=== PATIENT | female | born 1955 | race Caucasian/White ===

== ENCOUNTER 2019-01-03 16:27 | Inpatient (IN) | payer OTHER ==
[~2019-01-03] VITALS: Ht 175.3 cm; Wt 75.1 kg
[~2019-01-03 16:27] MED LIST: ASPI-612 PO; ATOR40TA59 PO; CLOP75TA PO; ERTA1VIA IJ; INSU100I17 SQ; INSU100I27 SQ; LACT1CAP19 PO; LEVO112T4 PO; LISI-338 PO; METF850T8 PO; OXYC1TAB15 PO; PANT40TA5 PO
[2019-01-03 21:35] VITALS: BP 141/66
--- NOTE | 2019-01-03 21:44 | NUR ---
The patient, CHAVO GAYLE, 63 y/o, F admitted by TAYLOR COLON MD. pt. arrived on unit via wheelchair at 2134 with at bedside. Pt. doesn't complain of pain, VSS. Pt. was given written information regarding hospital policies, unit procedures and contact persons. call light within reach, pt. at bedside, no clutter on floor. Will continue to monitor.
[2019-01-03] MEDS ORDERED: HYDROcodone/APAP 5/325MG 1 TAB TABLET PO PRN (22:00)
[2019-01-03] MEDS ORDERED: MORPHINE SULFATE 2 MG/ML VIAL. IV PRN (22:00)
[2019-01-03] MEDS ORDERED: VANCOMYCIN 1.25 GM in IV NORMAL SALINE 250ML 250 ML IV ONE (22:00)
[2019-01-03] MEDS ORDERED: ONDANSETRON PF 4 MG/2 ML VIAL. IV PRN (22:00)
[2019-01-03] MEDS ORDERED: ACETAMINOPHEN 325 MG TABLET. PO PRN (22:00)
[2019-01-03] MEDS ORDERED: LACTULOSE 20 GM/30 ML SOLUTION. PO PRN (22:00)
[2019-01-03 23:00] VITALS: BP 135/68
[2019-01-03] MEDS ORDERED: cefTRIAXone IV Push 1 GM VIAL. IVP SCH (23:00)
[2019-01-03] MEDS ORDERED: VANCOMYCIN 1.75 GM in IV NORMAL SALINE 500ML BAG 500 ML IV ONE (23:00)
[2019-01-03] MEDS: HEPARIN for SUB-Q USE 5,000 UNIT/ML VIAL. SQ SCH (23:13)
[2019-01-04] VITALS (12 sets, daily range): BP systolic 118–164; BP diastolic 61–79
[2019-01-04] MEDS ORDERED: METF10007 PO (02:05)
[2019-01-04] MEDS ORDERED: CANA300T PO (02:05)
[2019-01-04] MEDS ORDERED: LOSA-73 PO (02:05)
[2019-01-04 03:23] LABS: BASO % 1 % (0-3); EOS # 0.3 x10^3/uL (0.0-0.7); EOS % 6 % (0-3); HEMATOCRIT 38.2 % (36.0-47.0); HEMOGLOBIN 12.2 g/dL (12.0-15.5); LYMPH # 1.8 x10^3/uL (1.0-4.8); LYMPH % 34 % (24-48); MEAN CORPUSCULAR HEMOGLOBIN 28 pg (25-35); MEAN CORPUSCULAR HGB CONC 32 g/dL (31-37); MEAN CORPUSCULAR VOLUME 89 fL (79-100); MONO # 0.5 x10^3/uL (0.0-1.1); MONO % 9 % (0-9); NEUT # 2.7 x10^3uL (1.8-7.7); NEUT % 50 % (31-73); PLATELET COUNT 153 x10^3/uL (140-400); RED BLOOD COUNT 4.31 x10^6/uL (3.50-5.40); RED CELL DISTRIBUTION WIDTH 14.7 % (11.5-14.5); WHITE BLOOD COUNT 5.4 x10^3/uL (4.0-11.0)
[2019-01-04 03:36] LABS: CALCIUM 9.1 mg/dL (8.5-10.1); CREATININE 0.8 mg/dL (0.6-1.0); GFR 72.4; POTASSIUM 4.1 mmol/L (3.5-5.1)
[2019-01-04] MEDS: VANCOMYCIN PER PHARMACY MC PRN ×4 (03:57→15:32)
--- NOTE | 2019-01-04 03:57 | NUR ---
Pharmacy Vancomycin Dosing Note S:Consulted to monitor and dose vancomycin started 01/03/19. O:CHAVO GAYLE is a 63 year old F with . Height: 5 feet, 9 inches Weight: 73.644417 kg Urich Body Weight: 66.20 Adjusted Body Weight: 69.32 Dosing Weight: Actual Other Antibiotics: LABS: Last BUN: 16 Last Creatinine: 0.8 Creatinine Clearance: 79 mL/min Last WBC: 5.4 Last Procalcitonin: Tmax (past 24 hours): Microbiology: I/O: Drug Levels: Last level: on at Last dose given 01/03/19 at 2300 Vancomycin Dosing: Loading Dose: 1750 mg x1 Dosing Weight: Actual Target Trough: 10-20 A: Based on: WT AND CRCL P: 1. Begin Vancomycin 1000 mg IV q12h 2. Follow up Trough level on 01/05/19 at 1030 3. Pharmacy will continue to monitor, follow and adjust therapy as needed. WOLF MORRELL RPH, 01/04/19 0358 Signed: 01/04/19 at 035 by WOLF MORRELL RPH PHA
[2019-01-04] MEDS: HEPARIN for SUB-Q USE 5,000 UNIT/ML VIAL. SQ SCH ×3 (06:00→21:51)
--- NOTE | 2019-01-04 07:11 | NUR ---
Dr. William and Dr. Mcginnis consulted this morning.
--- NOTE | 2019-01-04 07:16 | NUR ---
Holding 0600 heparin in case pt. needs to go for procedure. JESSICA Lloyd notified.
[2019-01-04] MEDS: SENNOSIDES/DOCUSATE 8.6/50MG TABLET. PO SCH ×2 (07:35→21:50)
--- NOTE | 2019-01-04 09:27 | PDOC1 ---
History and Physical Date of Admission Date of Admission DATE: 01/04/19 TIME: 09:23 Identification/Chief Complaint Chief Complaint Right BKA Stump dehiscence Source Source: Caregiver, Chart review, Patient History of Present Illness History of Present Illness 62-year-old female, with a past medical history of diabetes, hypertension and hyperlipidemia, who about a year ago sprained her ankle and returned to the hospital at the start of the year and ultimately due to poor circulation underwent a right BKA in early November and has been recovering at home with home health when her home health nurse called vascular surgeon yesterday afternoon about wound dehiscence. She denies any fever or chills, but does note she had had her leg wrapped for the past week awaiting further approval for more home health and when her nurse arrived a large amount of serosanguineous drainage was revealed. She does note some redness, but denies any fever/chills. She does have some nausea. Right stump dehiscence s/p R BKA 11/08/18 - s/p rocephin and Vanc last night when I was called for her arrival PAD s/p right superficial femoral artery/popliteal artery atherectomy and angioplasty on 10/29/2018 She was called for direct admission for likely return to OR. Past Medical History Cardiovascular: HTN, Hyperlipidemia Pulmonary: No pertinent hx GI: No pertinent hx Endocrine: Diabetes, Hypothyroidism Past Surgical History Past Surgical History: Other (Right BKA) Family History Family History: Diabetes, Hypertension Social History Smoke: No ALCOHOL: none Drugs: None Current Medications Current Medications Current Medications Ondansetron HCl (Zofran) 4 mg PRN Q6HRS PRN IV NAUSEA/VOMITING 1ST CHOICE; Start 01/03/19 at 22:00 Morphine Sulfate (Morphine Sulfate) 2 mg PRN Q4HRS PRN IV SEVERE PAIN; Start at 22:00 Acetaminophen/ Hydrocodone Bitart (Lortab 5/325) 1 tab PRN Q6HRS PRN PO MILD PAIN; Start 01/03/19 at 22:00 Acetaminophen (Tylenol) 650 mg PRN Q6HRS PRN PO Headaches, Temp > 101.5F; Start 01/03/19 at 22:00 Senna/Docusate Sodium (Senna Plus) 1 tab BID PO ; Start 01/04/19 at 09:00 Lactulose (Lactulose) 20 gm PRN Q12HR PRN PO CONSTIPATION 1ST CHOICE; Start 01/03/19 at 22:00 Heparin Sodium (Porcine) (Heparin Sodium) 5,000 unit Q8HRS SQ Last administered on 01/03/19at 23:13; Start 01/03/19 at 22:00 Vancomycin HCl 1.25 gm/Sodium Chloride 250 ml @ 166.667 mls/hr 1X ONCE IV ; Start 01/03/19 at 22:00; Stop 01/03/19 at 23:29; Status UNV Ceftriaxone Sodium (Rocephin) 1 gm Q24H IVP Last administered on 01/03/19at 23:12 ; Start 01/03/19 at 23:00 Vancomycin HCl (Vanco Per Pharmacy) 1 each PRN DAILY PRN MC SEE COMMENTS Last administered on 01/04/19at 05:49; Start 01/03/19 at 22:45 Vancomycin HCl 1.75 gm/Sodium Chloride 500 ml @ 250 mls/hr 1X ONCE IV Last administered on 01/03/19at 23:11; Start 01/03/19 at 23:00; Stop 01/04/19 at 00:59; Status DC Vancomycin HCl 1 gm/Sodium Chloride 250 ml @ 250 mls/hr Q12H IV ; Start at 11:00 Vancomycin HCl (Vancomycin Trough Level) 1 each 1X ONCE MC ; Start 01/05/19 at 10:30; Stop 01/05/19 at 10:31 Active Scripts Active Aspirin Ec (Aspirin) 81 Mg Tablet.dr 81 Mg PO DAILYWBKFT 30 Days Atorvastatin Calcium 40 Mg Tablet 20 Mg PO QHS Levothyroxine Sodium 112 Mcg Tablet 112 Mcg PO DAILY07 Reported Metformin Hcl 1,000 Mg Tablet 1,000 Mg PO BID Invokana (Canagliflozin) 300 Mg Tablet 300 Mg PO DAILY Losartan Potassium 50 Mg Tablet 25 Mg PO DAILY Allergies Allergies: Coded Allergies: No Known Drug Allergies (Unverified , 04/05/16) ROS General: YES: Fatigue, Malaise; No: Chills, Night Sweats, Appetite, Other PSYCHOLOGICAL ROS: No: Anxiety, Behavioral Disorder, Concentration difficultie , Decreased libido, Depression, Disorientation, Hallucinations, Hostility, Irritablity, Memory difficulties, Mood Swings, Obsessive thoughts, Physical abuse, Sexual abuse, Sleep disturbances, Suicidal ideation, Other Eyes: No Blurry vision, No Decreased vision, No Double vision, No Dry eyes, No Excessive tearing, No Eye Pain, No Itchy Eyes, No Loss of vision, No Photophobia , No Scotomata, No Uses contacts, No Uses glasses, No Other HEENT: No: Heacaches, Visual Changes, Hearing change, Nasal congestion, Nasal discharge, Oral lesions, Sinus pain, Sore Throat, Epistaxis, Sneezing, Snoring, Tinnitus, Vertigo, Vocal changes, Other ALLERGY AND IMMUNOLOGY: No: Hives, Insect Bite Sensitivity, Itchy/Watery Eyes, Nasal Congestion, Post Nasal Drip, Seasonal Allergies, Other Hematological and Lymphatic: No: Bleeding Problems, Blood Clots, Blood Transfusions, Brusing, Night Sweats, Pallor, Swollen Lymph Nodes, Other ENDOCRINE: No: Breast Changes, Galactorrhea, Hair Pattern Changes, Hot Flashes , Malaise/lethargy, Mood Swings, Palpitations, Polydipsia/polyuria, Skin Changes , Temperature Intolerance, Unexpected Weight Changes, Other Breast: No New/Changing Breast Lumps, No Nipple changes, No Nipple discharge, No Other Respiratory: No: Cough, Hemoptysis, Orthopnea, Pleuritic Pain, Shortness of breath, SOB with excertion, Sputum Changes, Stridor, Tachypnea, Wheezing, Other Cardiovascular: No Chest Pain, No Palpitations, No Orthopnea, No Paroxysmal Noc. Dyspnea, No Edema, No Lt Headedness, No Other Gastrointestinal: Yes Nausea; No Vomiting, No Abdominal Pain, No Diarrhea, No Constipation, No Melena, No Hematochezia, No Other Genitourinary: No Dysuria, No Frequency, No Incontinence, No Hematuria, No Retention, No Discharge, No Urgency, No Pain, No Flank Pain, No Other, No , No , No , No , No , No , No Musculoskeletal: Yes Gait Disturbance, Yes Joint Pain; No Joint Stiffness, No Joint Swelling, No Muscle Pain, No Muscular Weakness, No Pain In:, No Swelling In:, No Other Neurological: No Behavorial Changes, No Bowel/Bladder ControlChng, No Confusion , No Dizziness, No Gait Disturbance, No Headaches, No Impaired Coord/balance, No Memory Loss, No Numbness/Tingling, No Seizures, No Speech Problems, No Tremors, No Visual Changes, No Weakness, No Other Skin: Yes Rash; No Dry Skin, No Eczema, No Hair Changes, No Lumps, No Mole Changes, No Mottling, No Nail Changes, No Pruritus, No Skin Lesion Changes, No Other, No Acne Physical Exam General: Alert, Oriented X3, Cooperative, No acute distress HEENT: Atraumatic, PERRLA, EOMI, Mucous membr. moist/pink Lungs: Clear to auscultation, Normal air movement Heart: S1S2, RRR Abdomen: Normal bowel sounds, Soft, No tenderness, No hepatosplenomegaly, No masses Rectal Exam: not examined Extremities: No clubbing, No cyanosis, Normal pulses, Other (Right stump with some swelling, redness) Skin: Other (Open wound on right stump, left ac with some abrasions) Neuro: Normal speech, Strength at 5/5 X4 ext, Normal tone, Cranial nerves 3-12 NL, Reflexes 2+, Other (Decreased sensation) Psych/Mental Status: Mental status NL, Mood NL Vitals Vitals Vital Signs Date Time Temp Pulse Resp B/P (MAP) Pulse Ox O2 Delivery O2 Flow Rate FiO2 01/04/19 08:00 Room Air 01/04/19 07:00 98.5 87 18 141/69 (93) 97 98.5 Labs Labs Laboratory Tests Test 01/03/19 23:58 01/04/19 02:50 Glucose (Fingerstick) 137 mg/dL (70-99) White Blood Count 5.4 x10^3/uL (4.0-11.0) Red Blood Count 4.31 x10^6/uL (3.50-5.40) Hemoglobin 12.2 g/dL (12.0-15.5) Hematocrit 38.2 % (36.0-47.0) Mean Corpuscular Volume 89 fL (79-100) Mean Corpuscular Hemoglobin 28 pg (25-35) Mean Corpuscular Hemoglobin Concent 32 g/dL (31-37) Red Cell Distribution Width 14.7 % (11.5-14.5) Platelet Count 153 x10^3/uL (140-400) Neutrophils (%) (Auto) 50 % (31-73) Lymphocytes (%) (Auto) 34 % (24-48) Monocytes (%) (Auto) 9 % (0-9) Eosinophils (%) (Auto) 6 % (0-3) Basophils (%) (Auto) 1 % (0-3) Neutrophils # (Auto) 2.7 x10^3uL (1.8-7.7) Lymphocytes # (Auto) 1.8 x10^3/uL (1.0-4.8) Monocytes # (Auto) 0.5 x10^3/uL (0.0-1.1) Eosinophils # (Auto) 0.3 x10^3/uL (0.0-0.7) Basophils # (Auto) 0.0 x10^3/uL (0.0-0.2) Sodium Level 144 mmol/L (136-145) Potassium Level 4.1 mmol/L (3.5-5.1) Chloride Level 108 mmol/L (98-107) Carbon Dioxide Level 26 mmol/L (21-32) Anion Gap 10 (6-14) Blood Urea Nitrogen 16 mg/dL (7-20) Creatinine 0.8 mg/dL (0.6-1.0) Estimated GFR (Cockcroft-Gault) 72.4 Glucose Level 156 mg/dL (70-99) Calcium Level 9.1 mg/dL (8.5-10.1) Laboratory Tests Test 01/03/19 23:58 01/04/19 02:50 Glucose (Fingerstick) 137 mg/dL (70-99) White Blood Count 5.4 x10^3/uL (4.0-11.0) Red Blood Count 4.31 x10^6/uL (3.50-5.40) Hemoglobin 12.2 g/dL (12.0-15.5) Hematocrit 38.2 % (36.0-47.0) Mean Corpuscular Volume 89 fL (79-100) Mean Corpuscular Hemoglobin 28 pg (25-35) Mean Corpuscular Hemoglobin Concent 32 g/dL (31-37) Red Cell Distribution Width 14.7 % (11.5-14.5) Platelet Count 153 x10^3/uL (140-400) Neutrophils (%) (Auto) 50 % (31-73) Lymphocytes (%) (Auto) 34 % (24-48) Monocytes (%) (Auto) 9 % (0-9) Eosinophils (%) (Auto) 6 % (0-3) Basophils (%) (Auto) 1 % (0-3) Neutrophils # (Auto) 2.7 x10^3uL (1.8-7.7) Lymphocytes # (Auto) 1.8 x10^3/uL (1.0-4.8) Monocytes # (Auto) 0.5 x10^3/uL (0.0-1.1) Eosinophils # (Auto) 0.3 x10^3/uL (0.0-0.7) Basophils # (Auto) 0.0 x10^3/uL (0.0-0.2) Sodium Level 144 mmol/L (136-145) Potassium Level 4.1 mmol/L (3.5-5.1) Chloride Level 108 mmol/L (98-107) Carbon Dioxide Level 26 mmol/L (21-32) Anion Gap 10 (6-14) Blood Urea Nitrogen 16 mg/dL (7-20) Creatinine 0.8 mg/dL (0.6-1.0) Estimated GFR (Cockcroft-Gault) 72.4 Glucose Level 156 mg/dL (70-99) Calcium Level 9.1 mg/dL (8.5-10.1) VTE Prophylaxis Ordered VTE Prophylaxis Devices: Yes VTE Pharmacological Prophylaxi: Yes Assessment/Plan Assessment/Plan A/P: Right stump dehiscence s/p R BKA 11/08/18 - s/p rocephin and Vanc last night when I was called for her arrival, changed rocephin to merrem for h/o bacteremia. Consulted ID for assistance and Vascular surgery, likely to OR today. Culture wound Diabetes - medium sliding scale, hold metformin for possible surgery Hypertension - cont home meds Hyperlipidemia - cont home meds PAD s/p right superficial femoral artery/popliteal artery atherectomy and angioplasty on 10/29/2018 - Hold ASA for surgery FEN - NPO, ADA diet post-op PPX - heparin last night, hold for OR FULL CODE Inpatient for right stump dehiscence, likely inpatient for 2 midnights TAYLOR COLON MD Jan 04, 2019 09:27
--- NOTE | 2019-01-04 09:59 | PDOC ---
Provider Note Provider Note S: pt admitted yesterday with right BKA stump dehiscence and drainage. She reports she had it dressed for 5 days without dressing changes so she was unaware of it's status. When the home health RN came for dressing change she told her to come to the hospital. She denies significant pain or fevers. Pt seen with Dr. Diallo O: VSS, afebrile Awake, alert, in no apparent distress Respirations nonlabored Right BKA stump with lateral opening about 4cm width, approx 3cm depth, without significant drainage at this site. There is evidence of sloughed tissue vs white infectious debris. Does not appear to track significantly along incision line, however there is a small area of incisional opening mid-anterior incision where small amount of bloody drainage is evident. No odor noted. Minimal surrounding erythema to lateral dehiscence. A/P: Incisional dehiscence of right BKA stump - Pt will need to go to the OR for debridement and wound vac placement. We discussed the risks/benefits, details of procedure and post op care including wound vac therapy with the patient who exhibited understanding and agreed to proceed. We will attempt to arrange this to take place this afternoon. Discussed with ID, pt will need to be on antibiotics per Dr. Mcginnis. Discussed with RN. ANA WOO Jan 04, 2019 09:59
[2019-01-04] MEDS ORDERED: IV RINGERS,LACTATED 1000ML 1,000 ML IV SCH ×2 (10:13)
[2019-01-04] MEDS ORDERED: LIDOCAINE 1% PF 2 ML VIAL. ID PRN ×2 (10:15)
[2019-01-04] MEDS ORDERED: HYDROmorphone 2 MG/ML VIAL IV PRN ×2 (10:15)
[2019-01-04] MEDS ORDERED: PROCHLORPERAZINE 10 MG/2 ML VIAL. IV PRN ×2 (10:15)
[2019-01-04] MEDS ORDERED: ONDANSETRON PF 4 MG/2 ML VIAL. IV PRN ×2 (10:15)
[2019-01-04] MEDS ORDERED: MORPHINE SULFATE 2 MG/ML VIAL. IV PRN ×2 (10:15)
[2019-01-04] MEDS ORDERED: fentaNYL PF VIAL 100 MCG/2 ML VIAL IV PRN ×3 (10:15)
--- NOTE | 2019-01-04 10:19 | PDOC ---
Infectious Disease Note Vital Sign Vital Signs Vital Signs Date Time Temp Pulse Resp B/P (MAP) Pulse Ox O2 Delivery O2 Flow Rate FiO2 01/04/19 08:00 Room Air 01/04/19 07:00 98.5 87 18 141/69 (93) 97 98.5 Labs Lab Laboratory Tests Test 01/03/19 23:58 01/04/19 02:50 Glucose (Fingerstick) 137 mg/dL (70-99) White Blood Count 5.4 x10^3/uL (4.0-11.0) Red Blood Count 4.31 x10^6/uL (3.50-5.40) Hemoglobin 12.2 g/dL (12.0-15.5) Hematocrit 38.2 % (36.0-47.0) Mean Corpuscular Volume 89 fL (79-100) Mean Corpuscular Hemoglobin 28 pg (25-35) Mean Corpuscular Hemoglobin Concent 32 g/dL (31-37) Red Cell Distribution Width 14.7 % (11.5-14.5) Platelet Count 153 x10^3/uL (140-400) Neutrophils (%) (Auto) 50 % (31-73) Lymphocytes (%) (Auto) 34 % (24-48) Monocytes (%) (Auto) 9 % (0-9) Eosinophils (%) (Auto) 6 % (0-3) Basophils (%) (Auto) 1 % (0-3) Neutrophils # (Auto) 2.7 x10^3uL (1.8-7.7) Lymphocytes # (Auto) 1.8 x10^3/uL (1.0-4.8) Monocytes # (Auto) 0.5 x10^3/uL (0.0-1.1) Eosinophils # (Auto) 0.3 x10^3/uL (0.0-0.7) Basophils # (Auto) 0.0 x10^3/uL (0.0-0.2) Sodium Level 144 mmol/L (136-145) Potassium Level 4.1 mmol/L (3.5-5.1) Chloride Level 108 mmol/L (98-107) Carbon Dioxide Level 26 mmol/L (21-32) Anion Gap 10 (6-14) Blood Urea Nitrogen 16 mg/dL (7-20) Creatinine 0.8 mg/dL (0.6-1.0) Estimated GFR (Cockcroft-Gault) 72.4 Glucose Level 156 mg/dL (70-99) Calcium Level 9.1 mg/dL (8.5-10.1) Objective Assessment Right stump dehiscence s/p R BKA 11/08/18 - s/p rocephin times one in ER on Vanc PAD s/p right superficial femoral artery/popliteal artery atherectomy and angioplasty on 10/29/2018 H/o Streptococcus oralis bacteremia POA Oct 22 2018 H/o Klebsiella oxytoca and Enterococcus faecalis, PCN sensitive. Diabetes II Tobaccoism HTN HLD Plan Plan of Care Cont Vanc Add Meropenem D/c Further Rocephin Cult wound F/u labs Await surgery today D/w nursing/ Dr. Hernandez and Margarette Raygoza PA Thank you # [phone] WILLIE MANN MD Jan 04, 2019 10:19
[2019-01-04] MEDS ORDERED: VANCOMYCIN 1 GM in IV NORMAL SALINE 250ML 250 ML IV SCH (11:00)
[2019-01-04] MEDS: MEROPENEM 500 MG in IV NORMAL SALINE 50ML 50 ML IV SCH ×2 (11:58→17:48)
[2019-01-04] MEDS: INSULIN LISPRO 300 UNITS/3 ML INSULN.PEN. SQ SCH ×2 (12:00→16:38)
[2019-01-04] MEDS ORDERED: DEXTROSE 50% 25 GM / 50ML DISP.SYRIN. IV PRN (12:00)
--- NOTE | 2019-01-04 12:24 | NUR ---
SW following for discharge planning. Discussed with RN, pt is from home with . Pt having a procedure today and abx. RN advised no SW needs at this time. SW will continue to follow.
--- NOTE | 2019-01-04 16:03 | PDOC ---
PROGRESS NOTES Subjective Subjective Patient was seen in preop prior to I and D of the BKA stump I discussed the procedure with her and her . They express understanding and wishes to proceed Objective Objective Vital Signs Date Time Temp Pulse Resp B/P (MAP) Pulse Ox O2 Delivery O2 Flow Rate FiO2 01/04/19 15:00 97.9 81 18 134/73 (93) 96 Room Air 97.9 Intake and Output 01/04/19 06:59 # Voids 1 Physical Exam Physical Exam I reviewed the findings in the chart and the previous H&Pthere are no changes Assessment Assessment Dehiscence of the right BKA at the lateral edge with some necrosis of the underlying fat tissue. Plan Plan of Care Plan I&D and likely VAC placement in the OR this evening I discussed the plan with the patient and her expressed understanding and wished to proceed. The right leg was marked and the consent was signed Comment Review of Relevant I have reviewed the following items nikole (where applicable) has been applied. Labs Laboratory Tests Test 01/03/19 23:58 01/04/19 02:50 01/04/19 12:07 Glucose (Fingerstick) 137 mg/dL (70-99) 159 mg/dL (70-99) White Blood Count 5.4 x10^3/uL (4.0-11.0) Red Blood Count 4.31 x10^6/uL (3.50-5.40) Hemoglobin 12.2 g/dL (12.0-15.5) Hematocrit 38.2 % (36.0-47.0) Mean Corpuscular Volume 89 fL (79-100) Mean Corpuscular Hemoglobin 28 pg (25-35) Mean Corpuscular Hemoglobin Concent 32 g/dL (31-37) Red Cell Distribution Width 14.7 % (11.5-14.5) Platelet Count 153 x10^3/uL (140-400) Neutrophils (%) (Auto) 50 % (31-73) Lymphocytes (%) (Auto) 34 % (24-48) Monocytes (%) (Auto) 9 % (0-9) Eosinophils (%) (Auto) 6 % (0-3) Basophils (%) (Auto) 1 % (0-3) Neutrophils # (Auto) 2.7 x10^3uL (1.8-7.7) Lymphocytes # (Auto) 1.8 x10^3/uL (1.0-4.8) Monocytes # (Auto) 0.5 x10^3/uL (0.0-1.1) Eosinophils # (Auto) 0.3 x10^3/uL (0.0-0.7) Basophils # (Auto) 0.0 x10^3/uL (0.0-0.2) Sodium Level 144 mmol/L (136-145) Potassium Level 4.1 mmol/L (3.5-5.1) Chloride Level 108 mmol/L (98-107) Carbon Dioxide Level 26 mmol/L (21-32) Anion Gap 10 (6-14) Blood Urea Nitrogen 16 mg/dL (7-20) Creatinine 0.8 mg/dL (0.6-1.0) Estimated GFR (Cockcroft-Gault) 72.4 Glucose Level 156 mg/dL (70-99) Calcium Level 9.1 mg/dL (8.5-10.1) Laboratory Tests Test 01/03/19 23:58 01/04/19 02:50 01/04/19 12:07 Glucose (Fingerstick) 137 mg/dL (70-99) 159 mg/dL (70-99) White Blood Count 5.4 x10^3/uL (4.0-11.0) Red Blood Count 4.31 x10^6/uL (3.50-5.40) Hemoglobin 12.2 g/dL (12.0-15.5) Hematocrit 38.2 % (36.0-47.0) Mean Corpuscular Volume 89 fL (79-100) Mean Corpuscular Hemoglobin 28 pg (25-35) Mean Corpuscular Hemoglobin Concent 32 g/dL (31-37) Red Cell Distribution Width 14.7 % (11.5-14.5) Platelet Count 153 x10^3/uL (140-400) Neutrophils (%) (Auto) 50 % (31-73) Lymphocytes (%) (Auto) 34 % (24-48) Monocytes (%) (Auto) 9 % (0-9) Eosinophils (%) (Auto) 6 % (0-3) Basophils (%) (Auto) 1 % (0-3) Neutrophils # (Auto) 2.7 x10^3uL (1.8-7.7) Lymphocytes # (Auto) 1.8 x10^3/uL (1.0-4.8) Monocytes # (Auto) 0.5 x10^3/uL (0.0-1.1) Eosinophils # (Auto) 0.3 x10^3/uL (0.0-0.7) Basophils # (Auto) 0.0 x10^3/uL (0.0-0.2) Sodium Level 144 mmol/L (136-145) Potassium Level 4.1 mmol/L (3.5-5.1) Chloride Level 108 mmol/L (98-107) Carbon Dioxide Level 26 mmol/L (21-32) Anion Gap 10 (6-14) Blood Urea Nitrogen 16 mg/dL (7-20) Creatinine 0.8 mg/dL (0.6-1.0) Estimated GFR (Cockcroft-Gault) 72.4 Glucose Level 156 mg/dL (70-99) Calcium Level 9.1 mg/dL (8.5-10.1) Microbiology Medications Current Medications Ondansetron HCl (Zofran) 4 mg PRN Q6HRS PRN IV NAUSEA/VOMITING 1ST CHOICE; Start 01/03/19 at 22:00 Morphine Sulfate (Morphine Sulfate) 2 mg PRN Q4HRS PRN IV SEVERE PAIN; Start at 22:00 Acetaminophen/ Hydrocodone Bitart (Lortab 5/325) 1 tab PRN Q6HRS PRN PO MILD PAIN; Start 01/03/19 at 22:00 Acetaminophen (Tylenol) 650 mg PRN Q6HRS PRN PO Headaches, Temp > 101.5F; Start 01/03/19 at 22:00 Senna/Docusate Sodium (Senna Plus) 1 tab BID PO ; Start 01/04/19 at 09:00 Lactulose (Lactulose) 20 gm PRN Q12HR PRN PO CONSTIPATION 1ST CHOICE; Start 01/03/19 at 22:00 Heparin Sodium (Porcine) (Heparin Sodium) 5,000 unit Q8HRS SQ Last administered on 01/03/19at 23:13; Start 01/03/19 at 22:00 Vancomycin HCl 1.25 gm/Sodium Chloride 250 ml @ 166.667 mls/hr 1X ONCE IV ; Start 01/03/19 at 22:00; Stop 01/03/19 at 23:29; Status UNV Ceftriaxone Sodium (Rocephin) 1 gm Q24H IVP Last administered on 01/03/19at 23:12 ; Start 01/03/19 at 23:00; Stop 01/04/19 at 10:16; Status DC Vancomycin HCl (Vanco Per Pharmacy) 1 each PRN DAILY PRN MC SEE COMMENTS Last administered on 01/04/19at 15:32; Start 01/03/19 at 22:45 Vancomycin HCl 1.75 gm/Sodium Chloride 500 ml @ 250 mls/hr 1X ONCE IV Last administered on 01/03/19at 23:11; Start 01/03/19 at 23:00; Stop 01/04/19 at 00:59; Status DC Vancomycin HCl 1 gm/Sodium Chloride 250 ml @ 250 mls/hr Q12H IV Last administered on 01/04/19at 10:19; Start 01/04/19 at 11:00; Stop 01/04/19 at 15:29; Status DC Vancomycin HCl (Vancomycin Trough Level) 1 each 1X ONCE MC ; Start 01/05/19 at 20:30; Stop 01/05/19 at 20:31 Meropenem 500 mg/ Sodium Chloride 50 ml @ 100 mls/hr Q6HRS IV Last administered on 01/04/19at 11:58; Start 01/04/19 at 11:00 Ondansetron HCl (Zofran) 4 mg PRN Q6HRS PRN IV NAUSEA/VOMITING; Start 01/04/19 at 10:15; Stop 01/05/19 at 10:14; Status UNV Fentanyl Citrate (Fentanyl 2ml Vial) 25 mcg PRN Q5MIN PRN IV MILD PAIN; Start 01/04/19 at 10:15; Stop 01/05/19 at 10:14; Status UNV Fentanyl Citrate (Fentanyl 2ml Vial) 50 mcg PRN Q5MIN PRN IV MODERATE TO SEVERE PAIN; Start 01/04/19 at 10:15; Stop 01/05/19 at 10:14; Status UNV Morphine Sulfate (Morphine Sulfate) 1 mg PRN Q10MIN PRN IV SEVERE PAIN; Start 01/04/19 at 10:15; Stop 01/05/19 at 10:14; Status UNV Ringer's Solution 1,000 ml @ 30 mls/hr Q24H IV ; Start 01/04/19 at 10:13; Stop 01/04/19 at 22:12; Status UNV Lidocaine HCl (Xylocaine-Mpf 1% 2ml Vial) 2 ml PRN 1X PRN ID PRIOR TO IV START ; Start 01/04/19 at 10:15; Stop 01/04/19 at 20:00 Hydromorphone HCl (Dilaudid) 0.5 mg PRN Q10MIN PRN IV SEV PAIN, Second choice; Start 01/04/19 at 10:15; Stop 01/05/19 at 10:14; Status UNV Prochlorperazine Edisylate (Compazine) 5 mg PACU PRN PRN IV NAUSEA, MRX1; Start 01/04/19 at 10:15; Stop 01/05/19 at 10:14; Status UNV Ondansetron HCl (Zofran) 4 mg PRN Q6HRS PRN IV NAUSEA/VOMITING; Start 01/04/19 at 10:15; Stop 01/04/19 at 20:00 Fentanyl Citrate (Fentanyl 2ml Vial) 25 mcg PRN Q5MIN PRN IV MILD PAIN; Start 01/04/19 at 10:15; Stop 01/04/19 at 20:00 Fentanyl Citrate (Fentanyl 2ml Vial) 50 mcg PRN Q5MIN PRN IV MODERATE TO SEVERE PAIN; Start 01/04/19 at 10:15; Stop 01/04/19 at 20:00 Morphine Sulfate (Morphine Sulfate) 1 mg PRN Q10MIN PRN IV SEVERE PAIN; Start 01/04/19 at 10:15; Stop 01/04/19 at 20:00 Ringer's Solution 1,000 ml @ 30 mls/hr Q24H IV ; Start 01/04/19 at 10:13; Stop 01/04/19 at 22:12 Lidocaine HCl (Xylocaine-Mpf 1% 2ml Vial) 2 ml PRN 1X PRN ID PRIOR TO IV START ; Start 01/04/19 at 10:15; Stop 01/05/19 at 10:14; Status UNV Hydromorphone HCl (Dilaudid) 0.5 mg PRN Q10MIN PRN IV SEV PAIN, Second choice; Start 01/04/19 at 10:15; Stop 01/04/19 at 10:20; Status DC Prochlorperazine Edisylate (Compazine) 5 mg PACU PRN PRN IV NAUSEA, MRX1; Start 01/04/19 at 10:15; Stop 01/04/19 at 20:00 Aspirin (Ecotrin) 81 mg DAILYWBKFT PO ; Start 01/05/19 at 08:00 Atorvastatin Calcium (Lipitor) 20 mg QHS PO ; Start 01/04/19 at 21:00 Levothyroxine Sodium (Synthroid) 112 mcg DAILY06 PO ; Start 01/05/19 at 06:00 Losartan Potassium (Cozaar) 25 mg DAILY PO ; Start 01/05/19 at 09:00 Insulin Human Lispro (HumaLOG) 0-7 UNITS TIDWMEALS SQ ; Start 01/04/19 at 12:00 Dextrose (Dextrose 50%-Water Syringe) 12.5 gm PRN Q15MIN PRN IV SEE COMMENTS; Start 01/04/19 at 12:00 Vancomycin HCl 750 mg/Sodium Chloride 250 ml @ 250 mls/hr Q12H IV ; Start at 23:00 Active Scripts Active Aspirin Ec (Aspirin) 81 Mg Tablet. 81 Mg PO [id number] 30 Days Atorvastatin Calcium 40 Mg Tablet 20 Mg PO QHS Levothyroxine Sodium 112 Mcg Tablet 112 Mcg PO [id number] Reported Metformin Hcl 1,000 Mg Tablet 1,000 Mg PO BID Invokana (Canagliflozin) 300 Mg Tablet 300 Mg PO DAILY Losartan Potassium 50 Mg Tablet 25 Mg PO DAILY Vitals/I & O Vital Sign - Last 24 Hours 01/03/19 01/03/19 01/03/19 01/04/19 21:35 22:00 23:00 03:00 Temp 97.6 97.9 98.1 97.6 97.9 98.1 Pulse 81 71 90 Resp 18 18 18 B/P (MAP) 141/66 (91) 135/68 (90) 130/73 (92) Pulse Ox 97 96 97 O2 Delivery Room Air Room Air Room Air Room Air 01/04/19 01/04/19 01/04/19 01/04/19 07:00 08:00 11:07 14:50 Temp 98.5 98.2 96.9 98.5 98.2 96.9 Pulse 87 86 80 Resp 18 18 20 B/P (MAP) 141/69 (93) 142/70 (94) 183/82 Pulse Ox 97 97 97 O2 Delivery Room Air Room Air Room Air Room Air 01/04/19 15:00 Temp 97.9 97.9 Pulse 81 Resp 18 B/P (MAP) 134/73 (93) Pulse Ox 96 O2 Delivery Room Air KIRK SILVA MD Jan 04, 2019 16:03
[2019-01-04] MEDS ORDERED: LIDOCAINE 2% PF 5 ML VIAL. ONE (16:10)
[2019-01-04] MEDS ORDERED: PROPOFOL 20 ML IV ONE (16:10)
[2019-01-04] MEDS ORDERED: DEXAMETHASONE SOD PHOS 20 MG/5 ML VIAL. ONE (16:11)
[2019-01-04] MEDS ORDERED: ONDANSETRON PF 4 MG/2 ML VIAL. ONE (16:11)
--- NOTE | 2019-01-04 17:26 | PDOC4 ---
OPERATIVE NOTE Date: Date: Jan 04, 2019 Pre-Op Diagnosis: Recent right below-knee amputation Dehiscence of lateral edge of right BKA stump Post-Op Diagnosis: Same as above No evidence of infection Procedure Performed: I&D right BKA stump occluding muscle and fascia first 20 cm Placement of wound VAC 2 separate sponges first is 6 cm x 2 cm next is 6 cm x 1 cm Surgeon: Kirk Silva M.D. Anesthesia Type: Gen. Blood Loss: Minimal Specimans Obtained: None Findings: Superficial fat necrosis at the lateral border in the area of dehiscencethis was debrided down to underlying muscle and fascia in the area 6 cm x 2 cm until there was good bleeding at all skin edges. There was no evidence of infection The central portion of the posterior flap had a small pinpoint opening-- this was opened more extensively and underlying this some hematoma was removed and there was no evidence of infection Complications: None Operative Note: Patient was escorted to the operating room placed on the table. After placement of appropriate monitoring devices anesthesia was induced without difficulty. Right leg / BKA stump was prepped and draped in usual sterile fashion. Proper timeout was performed. Attention was directed to the right BKA stump with the lateral portion which had artery dehisced was examined. Some necrotic tissue was debrided with scissors and Bovie cautery cutting away the tissue. This is carried down onto the posterior muscle flap/fascia. This was taken down until there was good bleeding at all wound edges and then excellent hemostasis was ensured with cautery. The area was extensively washed out with the Pulsavac. Attention was directed to the antral portion of the posterior flap or a small pinpoint opening it also occurred. This was opened more extensively and underlying this small amount hematoma was removed. The skin edges were examined and a small amount was debrided but overall this appeared very healthy. This area was cleaned out Pulsavac as well. Good hemostasis was achieved and then 2 separate VAC sponges were placed at the 2 wounds. The central and was 6 cm x 1 cm with some tunneling. The lateral one was 6 cm by 2 cm with some tunneling. The wound VAC was then placed with excellent seal the patient was awakened in the operating room and escorted to recovery in stable condition. There were no competitions, the patient works usual throughout, at the end of the case all sponge, needle, and instrument counts were reported to me as correct 2. KIRK SILVA MD Jan 04, 2019 17:26
[2019-01-04] MEDS ORDERED: fentaNYL PF VIAL 100 MCG/2 ML VIAL ONE (17:42)
[2019-01-04] MEDS: fentaNYL PF VIAL 100 MCG/2 ML VIAL IV PRN ×2 (17:49→18:12)
[2019-01-04] MEDS: VANCOMYCIN 750 MG in IV NORMAL SALINE 250ML 250 ML IV SCH (21:50)
[2019-01-04] MEDS: ATORVASTATIN CALCIUM 20 MG TABLET PO SCH (21:51)
[2019-01-04] MEDS ORDERED: INSULIN LISPRO 300 UNITS/3 ML INSULN.PEN. SQ ONE (23:00)
[2019-01-05] MEDS: MEROPENEM 500 MG in IV NORMAL SALINE 50ML 50 ML IV SCH ×4 (00:03→18:13)
--- NOTE | 2019-01-05 00:58 | CONS ---
DATE OF CONSULTATION: 01/04/2019 ROOM: 420. REQUESTING PHYSICIAN: Dr. Hernandez. REASON FOR CONSULTATION: Wound dehiscence. HISTORY OF PRESENT ILLNESS: The patient is a pleasant 63-year-old female with history of diabetes and tobacco abuse, who was admitted back in 10/2018. She was found to have peripheral arterial disease and underwent right superficial femoral artery and popliteal artery atherectomy and angioplasty on 10/29/2018. She was found to have a right fifth metatarsal base fracture and also had an infected diabetic wound with osteomyelitis on the right MT joint. Initially, she underwent an open ray amputation, but the wound progressed throughout the foot and it was not salvageable and she underwent a right BKA on 11/08/2018. At the time of presentation, she had Strep oralis bacteremia on 10/22/2018. Wounds also grew out Klebsiella oxytoca as well as penicillin sensitive Enterococcus faecalis. Subsequently, was discharged to [facility] where she had done rehab. She had gotten a stump protector. States she was discharged home from [facility] on Thursday, approximately 10 days ago, and was seen by the nurse at that time when her wound was dressed on Thursday. She states at that time, she had been doing fairly well. Her home nurse followed up on Thursday. The dressing at that time was changed and it was found to be bloody and there was a wound in the corner of the incision, hence she has been admitted. She states at home she had been feeling well. She had no indications of anything what was going wrong. She had no fevers or chills. No headaches. No sore throat or cough. No chest pain, no nausea, vomiting or diarrhea. PAST MEDICAL HISTORY: Again, positive for hypertension, hyperlipidemia, diabetes, hypothyroidism, the above-mentioned Strep oralis bacteremia and the wound infections as mentioned above. PAST SURGICAL HISTORY: As mentioned above. REVIEW OF SYSTEMS: Otherwise negative. ALLERGIES: No known drug allergies. SOCIAL HISTORY: Previous smoker. She is , works at a [employer] center. FAMILY HISTORY: Positive for hypertension. CURRENT MEDICATIONS: She received a dose of Rocephin in the Emergency Room. She is currently on vancomycin. She is on pain medications, lactulose, and p.r.n. medications. PHYSICAL EXAMINATION: VITAL SIGNS: Afebrile, temperature 98.5, pulse 87, respirations 18, blood pressure 141/69, satting 97% on room air. CONSTITUTIONAL: She is very pleasant, cooperative, in no acute distress. HEENT: Pupils equal and reactive. Normal conjunctivae. Oral cavity, pharynx is clear. NECK: Supple, no JVD. LUNGS: Clear to auscultation bilaterally. HEART: S1, S2. ABDOMEN: Soft, nontender, nondistended, positive bowel sounds. EXTREMITIES: No clubbing, cyanosis. Her right stump is now dressed with a clean dressing. SKIN: Warm to touch without rash. NEUROLOGIC: She is nonfocal and appropriate. PSYCHIATRIC: Affect is pleasant. LABORATORY DATA: White count 5.4, hemoglobin 12.2, platelets 153, neutrophils 53, lymphs 34, glucose 156. Creatinine 0.8. There are no imaging studies. IMPRESSION: 1. Right stump dehiscence status post right below knee amputation on 11/08/2018 status post Rocephin x 1 in the ER and on vancomycin now. 2. Peripheral arterial disease, status post atherectomy and angioplasty. 3. History of Strep oralis bacteremia. 4. History of Klebsiella and Enterococcus as mentioned above. 5. Type 2 diabetes. 6. Tobacco abuse and tobaccoism. 7. Hypertension. 8. Hyperlipidemia. RECOMMENDATIONS: We will continue vancomycin. We will add meropenem to cover anaerobes. Discontinue further Rocephin. Meropenem will also have potential coverage in case the Klebsiella has become more resistant. Obtain culture of the wound. Follow up on labs. Await surgery hopefully today. This was discussed with nursing. Discussed with Dr. Hernandez. Discussed with Jenifer vascular PA. Thank you for allowing me to participate in this patient's care. Should you have any questions, please do not hesitate to contact me. WILLIE MANN MD DR: MARY/robbi JOB#: [id number] / [id number]
[2019-01-05 03:00] VITALS: BP 137/66
[2019-01-05 03:34] LABS: BASO % 0 % (0-3); EOS % 0 % (0-3); HEMATOCRIT 39.2 % (36.0-47.0); HEMOGLOBIN 12.8 g/dL (12.0-15.5); LYMPH # 0.9 x10^3/uL (1.0-4.8); LYMPH % 15 % (24-48); MEAN CORPUSCULAR HEMOGLOBIN 29 pg (25-35); MEAN CORPUSCULAR HGB CONC 33 g/dL (31-37); MEAN CORPUSCULAR VOLUME 87 fL (79-100); MONO # 0.2 x10^3/uL (0.0-1.1); MONO % 3 % (0-9); NEUT # 4.8 x10^3uL (1.8-7.7); NEUT % 82 % (31-73); PLATELET COUNT 161 x10^3/uL (140-400); RED BLOOD COUNT 4.48 x10^6/uL (3.50-5.40); RED CELL DISTRIBUTION WIDTH 14.5 % (11.5-14.5); WHITE BLOOD COUNT 5.8 x10^3/uL (4.0-11.0)
[2019-01-05 03:53] LABS: CALCIUM 8.9 mg/dL (8.5-10.1); CREATININE 0.9 mg/dL (0.6-1.0); GFR 63.2; POTASSIUM 4.7 mmol/L (3.5-5.1)
[2019-01-05] MEDS: LEVOTHYROXINE 112 MCG TABLET PO SCH (05:28)
[2019-01-05] MEDS: HEPARIN for SUB-Q USE 5,000 UNIT/ML VIAL. SQ SCH ×3 (05:32→21:52)
[2019-01-05 07:00] VITALS: BP 124/64
[2019-01-05] MEDS: ASPIRIN ENTERIC COATED 81 MG TABLET.DR. PO SCH (08:10)
[2019-01-05] MEDS: SENNOSIDES/DOCUSATE 8.6/50MG TABLET. PO SCH ×2 (08:10→21:36)
[2019-01-05] MEDS: LOSARTAN POTASSIUM 25 MG TABLET. PO SCH (08:11)
[2019-01-05] MEDS: INSULIN LISPRO 300 UNITS/3 ML INSULN.PEN. SQ SCH ×3 (08:15→17:07)
[2019-01-05] MEDS: MULTIVITAMIN with MINERAL TABLET. PO SCH (09:54)
[2019-01-05] MEDS: ASCORBIC ACID 500 MG TABLET PO SCH (09:54)
[2019-01-05] MEDS: VANCOMYCIN 750 MG in IV NORMAL SALINE 250ML 250 ML IV SCH ×2 (09:58→23:21)
[2019-01-05 11:00] VITALS: BP 126/58
--- NOTE | 2019-01-05 13:07 | PDOC ---
PROGRESS NOTES Subjective Subjective Pt doing well, no complaints, denies pain today. Good intake and output. Objective Objective Vital Signs Date Time Temp Pulse Resp B/P (MAP) Pulse Ox O2 Delivery O2 Flow Rate FiO2 01/05/19 08:11 86 124/64 01/05/19 07:26 Room Air 01/05/19 07:00 98.0 18 95 98.0 01/04/19 17:19 10 Intake and Output 01/05/19 07:00 Intake Total 2500 ml Output Total 10 ml Balance 2490 ml Intake Oral 1900 ml IV Total 600 ml Output Estimated Blood Loss 10 ml # Voids 5 Physical Exam Physical Exam VSS, afebrile Awake, alert, in no apparent distress Right BKA stump with wound vac in place with good suction. Minimal erythema noted under adhesive dressing mixed with minimal residue from surgical placement. Plan Plan of Care POD# 1 of right BKA stump debridement and wound vac placement - Pt doing well, continue vac therapy - to be changed and seen tomorrow. - Continue abx per ID - Consult SS to assist with dispo planning, will need home health and home vac. Comment Review of Relevant I have reviewed the following items nikole (where applicable) has been applied. Labs Laboratory Tests Test 01/03/19 23:58 01/04/19 02:50 01/04/19 12:07 01/04/19 17:24 Glucose (Fingerstick) 137 mg/dL (70-99) 159 mg/dL (70-99) 133 mg/dL (70-99) White Blood Count 5.4 x10^3/uL (4.0-11.0) Red Blood Count 4.31 x10^6/uL (3.50-5.40) Hemoglobin 12.2 g/dL (12.0-15.5) Hematocrit 38.2 % (36.0-47.0) Mean Corpuscular Volume 89 fL (79-100) Mean Corpuscular Hemoglobin 28 pg (25-35) Mean Corpuscular Hemoglobin Concent 32 g/dL (31-37) Red Cell Distribution Width 14.7 % (11.5-14.5) Platelet Count 153 x10^3/uL (140-400) Neutrophils (%) (Auto) 50 % (31-73) Lymphocytes (%) (Auto) 34 % (24-48) Monocytes (%) (Auto) 9 % (0-9) Eosinophils (%) (Auto) 6 % (0-3) Basophils (%) (Auto) 1 % (0-3) Neutrophils # (Auto) 2.7 x10^3uL (1.8-7.7) Lymphocytes # (Auto) 1.8 x10^3/uL (1.0-4.8) Monocytes # (Auto) 0.5 x10^3/uL (0.0-1.1) Eosinophils # (Auto) 0.3 x10^3/uL (0.0-0.7) Basophils # (Auto) 0.0 x10^3/uL (0.0-0.2) Sodium Level 144 mmol/L (136-145) Potassium Level 4.1 mmol/L (3.5-5.1) Chloride Level 108 mmol/L (98-107) Carbon Dioxide Level 26 mmol/L (21-32) Anion Gap 10 (6-14) Blood Urea Nitrogen 16 mg/dL (7-20) Creatinine 0.8 mg/dL (0.6-1.0) Estimated GFR (Cockcroft-Gault) 72.4 Glucose Level 156 mg/dL (70-99) Calcium Level 9.1 mg/dL (8.5-10.1) Test 01/04/19 21:05 01/05/19 02:40 01/05/19 07:33 01/05/19 11:06 Glucose (Fingerstick) 193 mg/dL (70-99) 181 mg/dL (70-99) 196 mg/dL (70-99) White Blood Count 5.8 x10^3/uL (4.0-11.0) Red Blood Count 4.48 x10^6/uL (3.50-5.40) Hemoglobin 12.8 g/dL (12.0-15.5) Hematocrit 39.2 % (36.0-47.0) Mean Corpuscular Volume 87 fL (79-100) Mean Corpuscular Hemoglobin 29 pg (25-35) Mean Corpuscular Hemoglobin Concent 33 g/dL (31-37) Red Cell Distribution Width 14.5 % (11.5-14.5) Platelet Count 161 x10^3/uL (140-400) Neutrophils (%) (Auto) 82 % (31-73) Lymphocytes (%) (Auto) 15 % (24-48) Monocytes (%) (Auto) 3 % (0-9) Eosinophils (%) (Auto) 0 % (0-3) Basophils (%) (Auto) 0 % (0-3) Neutrophils # (Auto) 4.8 x10^3uL (1.8-7.7) Lymphocytes # (Auto) 0.9 x10^3/uL (1.0-4.8) Monocytes # (Auto) 0.2 x10^3/uL (0.0-1.1) Eosinophils # (Auto) 0.0 x10^3/uL (0.0-0.7) Basophils # (Auto) 0.0 x10^3/uL (0.0-0.2) Sodium Level 142 mmol/L (136-145) Potassium Level 4.7 mmol/L (3.5-5.1) Chloride Level 105 mmol/L (98-107) Carbon Dioxide Level 25 mmol/L (21-32) Anion Gap 12 (6-14) Blood Urea Nitrogen 16 mg/dL (7-20) Creatinine 0.9 mg/dL (0.6-1.0) Estimated GFR (Cockcroft-Gault) 63.2 Glucose Level 204 mg/dL (70-99) Calcium Level 8.9 mg/dL (8.5-10.1) Laboratory Tests Test 01/04/19 17:24 01/04/19 21:05 01/05/19 02:40 01/05/19 07:33 Glucose (Fingerstick) 133 mg/dL (70-99) 193 mg/dL (70-99) 181 mg/dL (70-99) White Blood Count 5.8 x10^3/uL (4.0-11.0) Red Blood Count 4.48 x10^6/uL (3.50-5.40) Hemoglobin 12.8 g/dL (12.0-15.5) Hematocrit 39.2 % (36.0-47.0) Mean Corpuscular Volume 87 fL (79-100) Mean Corpuscular Hemoglobin 29 pg (25-35) Mean Corpuscular Hemoglobin Concent 33 g/dL (31-37) Red Cell Distribution Width 14.5 % (11.5-14.5) Platelet Count 161 x10^3/uL (140-400) Neutrophils (%) (Auto) 82 % (31-73) Lymphocytes (%) (Auto) 15 % (24-48) Monocytes (%) (Auto) 3 % (0-9) Eosinophils (%) (Auto) 0 % (0-3) Basophils (%) (Auto) 0 % (0-3) Neutrophils # (Auto) 4.8 x10^3uL (1.8-7.7) Lymphocytes # (Auto) 0.9 x10^3/uL (1.0-4.8) Monocytes # (Auto) 0.2 x10^3/uL (0.0-1.1) Eosinophils # (Auto) 0.0 x10^3/uL (0.0-0.7) Basophils # (Auto) 0.0 x10^3/uL (0.0-0.2) Sodium Level 142 mmol/L (136-145) Potassium Level 4.7 mmol/L (3.5-5.1) Chloride Level 105 mmol/L (98-107) Carbon Dioxide Level 25 mmol/L (21-32) Anion Gap 12 (6-14) Blood Urea Nitrogen 16 mg/dL (7-20) Creatinine 0.9 mg/dL (0.6-1.0) Estimated GFR (Cockcroft-Gault) 63.2 Glucose Level 204 mg/dL (70-99) Calcium Level 8.9 mg/dL (8.5-10.1) Test 01/05/19 11:06 Glucose (Fingerstick) 196 mg/dL (70-99) Microbiology 01/03/19 Blood Culture - Preliminary, Resulted NO GROWTH AFTER 1 DAY Medications Current Medications Ondansetron HCl (Zofran) 4 mg PRN Q6HRS PRN IV NAUSEA/VOMITING 1ST CHOICE; Start 01/03/19 at 22:00 Morphine Sulfate (Morphine Sulfate) 2 mg PRN Q4HRS PRN IV SEVERE PAIN Last administered on 01/05/19at 01:13; Start 01/03/19 at 22:00 Acetaminophen/ Hydrocodone Bitart (Lortab 5/325) 1 tab PRN Q6HRS PRN PO MILD PAIN; Start 01/03/19 at 22:00 Acetaminophen (Tylenol) 650 mg PRN Q6HRS PRN PO Headaches, Temp > 101.5F; Start 01/03/19 at 22:00 Senna/Docusate Sodium (Senna Plus) 1 tab BID PO Last administered on 01/05/19at 08:10; Start 01/04/19 at 09:00 Lactulose (Lactulose) 20 gm PRN Q12HR PRN PO CONSTIPATION 1ST CHOICE; Start 01/03/19 at 22:00 Heparin Sodium (Porcine) (Heparin Sodium) 5,000 unit Q8HRS SQ Last administered on 01/05/19at 12:52; Start 01/03/19 at 22:00 Vancomycin HCl 1.25 gm/Sodium Chloride 250 ml @ 166.667 mls/hr 1X ONCE IV ; Start 01/03/19 at 22:00; Stop 01/03/19 at 23:29; Status UNV Ceftriaxone Sodium (Rocephin) 1 gm Q24H IVP Last administered on 01/03/19at 23:12 ; Start 01/03/19 at 23:00; Stop 01/04/19 at 10:16; Status DC Vancomycin HCl (Vanco Per Pharmacy) 1 each PRN DAILY PRN MC SEE COMMENTS Last administered on 01/04/19at 15:32; Start 01/03/19 at 22:45 Vancomycin HCl 1.75 gm/Sodium Chloride 500 ml @ 250 mls/hr 1X ONCE IV Last administered on 01/03/19at 23:11; Start 01/03/19 at 23:00; Stop 01/04/19 at 00:59; Status DC Vancomycin HCl 1 gm/Sodium Chloride 250 ml @ 250 mls/hr Q12H IV Last administered on 01/04/19at 10:19; Start 01/04/19 at 11:00; Stop 01/04/19 at 15:29; Status DC Vancomycin HCl (Vancomycin Trough Level) 1 each 1X ONCE MC ; Start 01/05/19 at 20:30; Stop 01/05/19 at 20:31 Meropenem 500 mg/ Sodium Chloride 50 ml @ 100 mls/hr Q6HRS IV Last administered on 01/05/19at 11:20; Start 01/04/19 at 11:00 Ondansetron HCl (Zofran) 4 mg PRN Q6HRS PRN IV NAUSEA/VOMITING; Start 01/04/19 at 10:15; Stop 01/05/19 at 10:14; Status UNV Fentanyl Citrate (Fentanyl 2ml Vial) 25 mcg PRN Q5MIN PRN IV MILD PAIN; Start 01/04/19 at 10:15; Stop 01/05/19 at 10:14; Status UNV Fentanyl Citrate (Fentanyl 2ml Vial) 50 mcg PRN Q5MIN PRN IV MODERATE TO SEVERE PAIN; Start 01/04/19 at 10:15; Stop 01/05/19 at 10:14; Status UNV Morphine Sulfate (Morphine Sulfate) 1 mg PRN Q10MIN PRN IV SEVERE PAIN; Start 01/04/19 at 10:15; Stop 01/05/19 at 10:14; Status UNV Ringer's Solution 1,000 ml @ 30 mls/hr Q24H IV ; Start 01/04/19 at 10:13; Stop 01/04/19 at 22:12; Status UNV Lidocaine HCl (Xylocaine-Mpf 1% 2ml Vial) 2 ml PRN 1X PRN ID PRIOR TO IV START ; Start 01/04/19 at 10:15; Stop 01/04/19 at 20:00; Status DC Hydromorphone HCl (Dilaudid) 0.5 mg PRN Q10MIN PRN IV SEV PAIN, Second choice; Start 01/04/19 at 10:15; Stop 01/05/19 at 10:14; Status UNV Prochlorperazine Edisylate (Compazine) 5 mg PACU PRN PRN IV NAUSEA, MRX1; Start 01/04/19 at 10:15; Stop 01/05/19 at 10:14; Status UNV Ondansetron HCl (Zofran) 4 mg PRN Q6HRS PRN IV NAUSEA/VOMITING; Start 01/04/19 at 10:15; Stop 01/04/19 at 20:00; Status DC Fentanyl Citrate (Fentanyl 2ml Vial) 25 mcg PRN Q5MIN PRN IV MILD PAIN; Start 01/04/19 at 10:15; Stop 01/04/19 at 20:00; Status DC Fentanyl Citrate (Fentanyl 2ml Vial) 50 mcg PRN Q5MIN PRN IV MODERATE TO SEVERE PAIN Last administered on 01/04/19at 18:12; Start 01/04/19 at 10:15; Stop at 20:00; Status DC Morphine Sulfate (Morphine Sulfate) 1 mg PRN Q10MIN PRN IV SEVERE PAIN; Start 01/04/19 at 10:15; Stop 01/04/19 at 20:00; Status DC Ringer's Solution 1,000 ml @ 30 mls/hr Q24H IV ; Start 01/04/19 at 10:13; Stop 01/04/19 at 22:12; Status DC Lidocaine HCl (Xylocaine-Mpf 1% 2ml Vial) 2 ml PRN 1X PRN ID PRIOR TO IV START ; Start 01/04/19 at 10:15; Stop 01/05/19 at 10:14; Status UNV Hydromorphone HCl (Dilaudid) 0.5 mg PRN Q10MIN PRN IV SEV PAIN, Second choice; Start 01/04/19 at 10:15; Stop 01/04/19 at 10:20; Status DC Prochlorperazine Edisylate (Compazine) 5 mg PACU PRN PRN IV NAUSEA, MRX1; Start 01/04/19 at 10:15; Stop 01/04/19 at 20:00; Status DC Aspirin (Ecotrin) 81 mg DAILYWBKFT PO Last administered on 01/05/19at 08:10; Start 01/05/19 at 08:00 Atorvastatin Calcium (Lipitor) 20 mg QHS PO Last administered on 01/04/19at 21:51 ; Start 01/04/19 at 21:00 Levothyroxine Sodium (Synthroid) 112 mcg DAILY06 PO Last administered on at 05:28; Start 01/05/19 at 06:00 Losartan Potassium (Cozaar) 25 mg DAILY PO Last administered on 01/05/19at 08:11 ; Start 01/05/19 at 09:00 Insulin Human Lispro (HumaLOG) 0-7 UNITS TIDWMEALS SQ Last administered on at 11:10; Start 01/04/19 at 12:00 Dextrose (Dextrose 50%-Water Syringe) 12.5 gm PRN Q15MIN PRN IV SEE COMMENTS; Start 01/04/19 at 12:00 Vancomycin HCl 750 mg/Sodium Chloride 250 ml @ 250 mls/hr Q12H IV Last administered on 01/05/19at 09:58; Start 01/04/19 at 23:00 Lidocaine HCl (Lidocaine Pf 2% Vial) 5 ml STK-MED ONCE .ROUTE ; Start 01/04/19 at 16:10; Stop 01/04/19 at 16:11; Status DC Propofol 20 ml @ As Directed STK-MED ONCE IV ; Start 01/04/19 at 16:10; Stop 01/04 at 16:11; Status DC Dexamethasone Sodium Phosphate (Decadron) 20 mg STK-MED ONCE .ROUTE ; Start 01/04 at 16:11; Stop 01/04/19 at 16:12; Status DC Ondansetron HCl (Zofran) 4 mg STK-MED ONCE .ROUTE ; Start 01/04/19 at 16:11; Stop 01/04/19 at 16:12; Status DC Fentanyl Citrate (Fentanyl 2ml Vial) 100 mcg STK-MED ONCE .ROUTE ; Start at 17:42; Stop 01/04/19 at 17:43; Status DC Insulin Human Lispro (HumaLOG) 3 units 1X ONCE SQ ; Start 01/04/19 at 23:00; Stop 01/04/19 at 23:00; Status DC Ascorbic Acid (Vitamin C) 500 mg DAILY PO Last administered on 01/05/19at 09:54; Start 01/05/19 at 10:00 Multivitamins (Thera M Plus) 1 tab DAILY PO Last administered on 01/05/19at 09:54 ; Start 01/05/19 at 10:00 Active Scripts Active Aspirin Ec (Aspirin) 81 Mg Tablet. 81 Mg PO [id number] 30 Days Atorvastatin Calcium 40 Mg Tablet 20 Mg PO QHS Levothyroxine Sodium 112 Mcg Tablet 112 Mcg PO DAILY07 Reported Metformin Hcl 1,000 Mg Tablet 1,000 Mg PO BID Invokana (Canagliflozin) 300 Mg Tablet 300 Mg PO DAILY Losartan Potassium 50 Mg Tablet 25 Mg PO DAILY Vitals/I & O Vital Sign - Last 24 Hours 01/04/19 01/04/19 01/04/19 01/04/19 14:50 15:00 17:19 17:19 Temp 96.9 97.9 98.5 96.9 97.9 98.5 Pulse 80 81 94 Resp 20 18 20 B/P (MAP) 183/82 134/73 (93) 130/56 Pulse Ox 97 96 100 O2 Delivery Room Air Room Air Mask Simple Mask O2 Flow Rate 10 10 01/04/19 01/04/19 01/04/19 01/04/19 17:35 17:49 17:50 18:05 Temp 98.5 98.5 98.5 98.5 98.5 98.5 Pulse 90 86 86 Resp 18 18 18 18 B/P (MAP) 162/72 159/70 149/65 Pulse Ox 96 100 91 94 O2 Delivery Room Air Room Air Room Air Room Air 01/04/19 01/04/19 01/04/19 01/04/19 18:12 18:20 18:35 19:00 Temp 98.5 97 98.2 98.5 97.0 98.2 Pulse 84 82 88 Resp 18 18 18 18 B/P (MAP) 164/71 145/72 164/74 (104) Pulse Ox 98 95 92 97 O2 Delivery Room Air Room Air Room Air Room Air 01/04/19 01/04/19 01/04/19 01/04/19 19:15 19:30 19:45 20:00 Pulse 85 83 87 Resp 18 18 18 B/P (MAP) 156/77 (103) 156/77 (103) 163/77 (105) Pulse Ox 95 94 98 O2 Delivery Room Air Room Air Room Air Mask 01/04/19 01/04/19 01/04/19 01/04/19 20:15 20:45 21:45 22:45 Temp 97.5 97.5 Pulse 89 90 94 103 Resp 18 18 18 18 B/P (MAP) 151/77 (101) 151/79 (103) 155/79 (104) 118/61 (80) Pulse Ox 97 96 99 97 O2 Delivery Room Air Room Air Room Air Room Air 01/05/19 01/05/19 01/05/19 01/05/19 01:13 01:43 03:00 07:00 Temp 98.1 98.0 98.1 98.0 Pulse 90 86 Resp 18 20 18 18 B/P (MAP) 137/66 (89) 124/64 (84) Pulse Ox 96 95 O2 Delivery Room Air Room Air Room Air Room Air 01/05/19 01/05/19 07:26 08:11 Pulse 86 B/P (MAP) 124/64 O2 Delivery Room Air Intake and Output 01/04/19 01/04/19 01/05/19 15:00 23:00 07:00 Intake Total 700 ml 1800 ml Output Total 10 ml Balance 690 ml 1800 ml ANA WOO Jan 05, 2019 13:07
--- NOTE | 2019-01-05 13:10 | PDOC ---
Infectious Disease Note Subjective Subjective Doing well and hoping to leave soon No F/C/S/N/v/D/SOA/rash ROS ROS o/w neg Vital Sign Vital Signs Vital Signs Date Time Temp Pulse Resp B/P (MAP) Pulse Ox O2 Delivery O2 Flow Rate FiO2 01/05/19 08:11 86 124/64 01/05/19 07:26 Room Air 01/05/19 07:00 98.0 18 95 98.0 01/04/19 17:19 10 Physical Exam PHYSICAL EXAM CONSTITUTIONAL: She is very pleasant, cooperative, in no acute distress. Sitting on side of bed HEENT: Pupils equal and reactive. Normal conjunctivae. Oral cavity, pharynx is clear. NECK: Supple, no JVD. LUNGS: Clear to auscultation bilaterally. HEART: S1, S2. ABDOMEN: Soft, nontender, nondistended, positive bowel sounds. EXTREMITIES: No clubbing, cyanosis. Her right stump is now dressed with a wound vac and looks clean SKIN: Warm to touch without rash. NEUROLOGIC: She is nonfocal and appropriate. PSYCHIATRIC: Affect is pleasant Labs Lab Laboratory Tests Test 01/04/19 17:24 01/04/19 21:05 01/05/19 02:40 01/05/19 07:33 Glucose (Fingerstick) 133 mg/dL (70-99) 193 mg/dL (70-99) 181 mg/dL (70-99) White Blood Count 5.8 x10^3/uL (4.0-11.0) Red Blood Count 4.48 x10^6/uL (3.50-5.40) Hemoglobin 12.8 g/dL (12.0-15.5) Hematocrit 39.2 % (36.0-47.0) Mean Corpuscular Volume 87 fL (79-100) Mean Corpuscular Hemoglobin 29 pg (25-35) Mean Corpuscular Hemoglobin Concent 33 g/dL (31-37) Red Cell Distribution Width 14.5 % (11.5-14.5) Platelet Count 161 x10^3/uL (140-400) Neutrophils (%) (Auto) 82 % (31-73) Lymphocytes (%) (Auto) 15 % (24-48) Monocytes (%) (Auto) 3 % (0-9) Eosinophils (%) (Auto) 0 % (0-3) Basophils (%) (Auto) 0 % (0-3) Neutrophils # (Auto) 4.8 x10^3uL (1.8-7.7) Lymphocytes # (Auto) 0.9 x10^3/uL (1.0-4.8) Monocytes # (Auto) 0.2 x10^3/uL (0.0-1.1) Eosinophils # (Auto) 0.0 x10^3/uL (0.0-0.7) Basophils # (Auto) 0.0 x10^3/uL (0.0-0.2) Sodium Level 142 mmol/L (136-145) Potassium Level 4.7 mmol/L (3.5-5.1) Chloride Level 105 mmol/L (98-107) Carbon Dioxide Level 25 mmol/L (21-32) Anion Gap 12 (6-14) Blood Urea Nitrogen 16 mg/dL (7-20) Creatinine 0.9 mg/dL (0.6-1.0) Estimated GFR (Cockcroft-Gault) 63.2 Glucose Level 204 mg/dL (70-99) Calcium Level 8.9 mg/dL (8.5-10.1) Test 01/05/19 11:06 Glucose (Fingerstick) 196 mg/dL (70-99) Micro Microbiology 01/03/19 Blood Culture - Preliminary, Resulted NO GROWTH AFTER 1 DAY Objective Assessment Right stump dehiscence s/p R BKA 11/08/18 - s/p rocephin times one in ER on Vanc s /p I and D 01/04 - no evidence of infection per op note - no bone PAD s/p right superficial femoral artery/popliteal artery atherectomy and angioplasty on 10/29/2018 H/o Streptococcus oralis bacteremia POA Oct 22 2018 H/o Klebsiella oxytoca and Enterococcus faecalis, PCN sensitive. Diabetes II Tobaccoism HTN HLD Plan Plan of Care Cont Vanc/ Meropenem F/u Cult wound F/u labs D/w nursing WILLIE Pires MD Jan 05, 2019 13:10
--- NOTE | 2019-01-05 13:22 | PDOC ---
PROGRESS NOTES Chief Complaint Chief Complaint Right stump dehiscence s/p R BKA 11/08/18 - s/p rocephin and Vanc last night when I was called for her arrival, changed rocephin to merrem for h/o bacteremia. Consulted ID for assistance and Vascular surgery, likely to OR today. Culture wound - will await sensitivities and f/u ID recs Diabetes - medium sliding scale, hold metformin for possible surgery Hypertension - cont home meds Hyperlipidemia - cont home meds PAD s/p right superficial femoral artery/popliteal artery atherectomy and angioplasty on 10/29/2018 - Hold ASA for surgery History of Present Illness History of Present Illness 62-year-old female, with a past medical history of diabetes, hypertension and hyperlipidemia, who about a year ago sprained her ankle and returned to the hospital at the start of the year and ultimately due to poor circulation underwent a right BKA in early November and has been recovering at home with home health when her home health nurse called vascular surgeon yesterday afternoon about wound dehiscence. She denies any fever or chills, but does note she had had her leg wrapped for the past week awaiting further approval for more home health and when her nurse arrived a large amount of serosanguineous drainage was revealed. Right stump dehiscence s/p R BKA 11/08/18 - s/p rocephin and Vanc last night when I was called for her arrival. S/P I&D and wound vac placement 01/[address] Pina Feeling ok today, pain well controlled, no BM as of yet. Blood glucose initially high, now better today. No SOB or CP. F/u ID recs Bowel regimen. IS PT/OT - likely can go home with home health, will need wound vac f/u as well. Plan for d/c when ok with vascular surgery. Vitals Vitals Vital Signs Date Time Temp Pulse Resp B/P (MAP) Pulse Ox O2 Delivery O2 Flow Rate FiO2 01/05/19 08:11 86 124/64 01/05/19 07:26 Room Air 01/05/19 07:00 98.0 18 95 98.0 01/04/19 17:19 10 Physical Exam Physical Exam CONSTITUTIONAL: She is very pleasant, cooperative, in no acute distress. HEENT: Pupils equal and reactive. Normal conjunctivae. Oral cavity, pharynx is clear. NECK: Supple, no JVD. LUNGS: Clear to auscultation bilaterally. HEART: S1, S2. ABDOMEN: Soft, nontender, nondistended, positive bowel sounds. EXTREMITIES: No clubbing, cyanosis. Her right stump is now dressed with a clean dressing. SKIN: Warm to touch without rash. NEUROLOGIC: She is nonfocal and appropriate. PSYCHIATRIC: Affect is pleasant General: Alert, Oriented X3, Cooperative, No acute distress Lungs: Clear, Other Abdomen: Normal bowel sounds, Soft, No tenderness, No hepatosplenomegaly, No masses Extremities: No clubbing, No cyanosis, Normal pulses, Other (Right stump with some swelling, redness) Skin: Other (Open wound on right stump, left ac with some abrasions) Labs LABS Laboratory Tests Test 01/04/19 17:24 01/04/19 21:05 01/05/19 02:40 01/05/19 07:33 Glucose (Fingerstick) 133 mg/dL (70-99) 193 mg/dL (70-99) 181 mg/dL (70-99) White Blood Count 5.8 x10^3/uL (4.0-11.0) Red Blood Count 4.48 x10^6/uL (3.50-5.40) Hemoglobin 12.8 g/dL (12.0-15.5) Hematocrit 39.2 % (36.0-47.0) Mean Corpuscular Volume 87 fL (79-100) Mean Corpuscular Hemoglobin 29 pg (25-35) Mean Corpuscular Hemoglobin Concent 33 g/dL (31-37) Red Cell Distribution Width 14.5 % (11.5-14.5) Platelet Count 161 x10^3/uL (140-400) Neutrophils (%) (Auto) 82 % (31-73) Lymphocytes (%) (Auto) 15 % (24-48) Monocytes (%) (Auto) 3 % (0-9) Eosinophils (%) (Auto) 0 % (0-3) Basophils (%) (Auto) 0 % (0-3) Neutrophils # (Auto) 4.8 x10^3uL (1.8-7.7) Lymphocytes # (Auto) 0.9 x10^3/uL (1.0-4.8) Monocytes # (Auto) 0.2 x10^3/uL (0.0-1.1) Eosinophils # (Auto) 0.0 x10^3/uL (0.0-0.7) Basophils # (Auto) 0.0 x10^3/uL (0.0-0.2) Sodium Level 142 mmol/L (136-145) Potassium Level 4.7 mmol/L (3.5-5.1) Chloride Level 105 mmol/L (98-107) Carbon Dioxide Level 25 mmol/L (21-32) Anion Gap 12 (6-14) Blood Urea Nitrogen 16 mg/dL (7-20) Creatinine 0.9 mg/dL (0.6-1.0) Estimated GFR (Cockcroft-Gault) 63.2 Glucose Level 204 mg/dL (70-99) Calcium Level 8.9 mg/dL (8.5-10.1) Test 01/05/19 11:06 Glucose (Fingerstick) 196 mg/dL (70-99) Comment Review of Relevant I have reviewed the following items nikole (where applicable) has been applied. Labs Laboratory Tests Test 01/03/19 23:58 01/04/19 02:50 01/04/19 12:07 01/04/19 17:24 Glucose (Fingerstick) 137 mg/dL (70-99) 159 mg/dL (70-99) 133 mg/dL (70-99) White Blood Count 5.4 x10^3/uL (4.0-11.0) Red Blood Count 4.31 x10^6/uL (3.50-5.40) Hemoglobin 12.2 g/dL (12.0-15.5) Hematocrit 38.2 % (36.0-47.0) Mean Corpuscular Volume 89 fL (79-100) Mean Corpuscular Hemoglobin 28 pg (25-35) Mean Corpuscular Hemoglobin Concent 32 g/dL (31-37) Red Cell Distribution Width 14.7 % (11.5-14.5) Platelet Count 153 x10^3/uL (140-400) Neutrophils (%) (Auto) 50 % (31-73) Lymphocytes (%) (Auto) 34 % (24-48) Monocytes (%) (Auto) 9 % (0-9) Eosinophils (%) (Auto) 6 % (0-3) Basophils (%) (Auto) 1 % (0-3) Neutrophils # (Auto) 2.7 x10^3uL (1.8-7.7) Lymphocytes # (Auto) 1.8 x10^3/uL (1.0-4.8) Monocytes # (Auto) 0.5 x10^3/uL (0.0-1.1) Eosinophils # (Auto) 0.3 x10^3/uL (0.0-0.7) Basophils # (Auto) 0.0 x10^3/uL (0.0-0.2) Sodium Level 144 mmol/L (136-145) Potassium Level 4.1 mmol/L (3.5-5.1) Chloride Level 108 mmol/L (98-107) Carbon Dioxide Level 26 mmol/L (21-32) Anion Gap 10 (6-14) Blood Urea Nitrogen 16 mg/dL (7-20) Creatinine 0.8 mg/dL (0.6-1.0) Estimated GFR (Cockcroft-Gault) 72.4 Glucose Level 156 mg/dL (70-99) Calcium Level 9.1 mg/dL (8.5-10.1) Test 01/04/19 21:05 01/05/19 02:40 01/05/19 07:33 01/05/19 11:06 Glucose (Fingerstick) 193 mg/dL (70-99) 181 mg/dL (70-99) 196 mg/dL (70-99) White Blood Count 5.8 x10^3/uL (4.0-11.0) Red Blood Count 4.48 x10^6/uL (3.50-5.40) Hemoglobin 12.8 g/dL (12.0-15.5) Hematocrit 39.2 % (36.0-47.0) Mean Corpuscular Volume 87 fL (79-100) Mean Corpuscular Hemoglobin 29 pg (25-35) Mean Corpuscular Hemoglobin Concent 33 g/dL (31-37) Red Cell Distribution Width 14.5 % (11.5-14.5) Platelet Count 161 x10^3/uL (140-400) Neutrophils (%) (Auto) 82 % (31-73) Lymphocytes (%) (Auto) 15 % (24-48) Monocytes (%) (Auto) 3 % (0-9) Eosinophils (%) (Auto) 0 % (0-3) Basophils (%) (Auto) 0 % (0-3) Neutrophils # (Auto) 4.8 x10^3uL (1.8-7.7) Lymphocytes # (Auto) 0.9 x10^3/uL (1.0-4.8) Monocytes # (Auto) 0.2 x10^3/uL (0.0-1.1) Eosinophils # (Auto) 0.0 x10^3/uL (0.0-0.7) Basophils # (Auto) 0.0 x10^3/uL (0.0-0.2) Sodium Level 142 mmol/L (136-145) Potassium Level 4.7 mmol/L (3.5-5.1) Chloride Level 105 mmol/L (98-107) Carbon Dioxide Level 25 mmol/L (21-32) Anion Gap 12 (6-14) Blood Urea Nitrogen 16 mg/dL (7-20) Creatinine 0.9 mg/dL (0.6-1.0) Estimated GFR (Cockcroft-Gault) 63.2 Glucose Level 204 mg/dL (70-99) Calcium Level 8.9 mg/dL (8.5-10.1) Laboratory Tests Test 01/04/19 17:24 01/04/19 21:05 01/05/19 02:40 01/05/19 07:33 Glucose (Fingerstick) 133 mg/dL (70-99) 193 mg/dL (70-99) 181 mg/dL (70-99) White Blood Count 5.8 x10^3/uL (4.0-11.0) Red Blood Count 4.48 x10^6/uL (3.50-5.40) Hemoglobin 12.8 g/dL (12.0-15.5) Hematocrit 39.2 % (36.0-47.0) Mean Corpuscular Volume 87 fL (79-100) Mean Corpuscular Hemoglobin 29 pg (25-35) Mean Corpuscular Hemoglobin Concent 33 g/dL (31-37) Red Cell Distribution Width 14.5 % (11.5-14.5) Platelet Count 161 x10^3/uL (140-400) Neutrophils (%) (Auto) 82 % (31-73) Lymphocytes (%) (Auto) 15 % (24-48) Monocytes (%) (Auto) 3 % (0-9) Eosinophils (%) (Auto) 0 % (0-3) Basophils (%) (Auto) 0 % (0-3) Neutrophils # (Auto) 4.8 x10^3uL (1.8-7.7) Lymphocytes # (Auto) 0.9 x10^3/uL (1.0-4.8) Monocytes # (Auto) 0.2 x10^3/uL (0.0-1.1) Eosinophils # (Auto) 0.0 x10^3/uL (0.0-0.7) Basophils # (Auto) 0.0 x10^3/uL (0.0-0.2) Sodium Level 142 mmol/L (136-145) Potassium Level 4.7 mmol/L (3.5-5.1) Chloride Level 105 mmol/L (98-107) Carbon Dioxide Level 25 mmol/L (21-32) Anion Gap 12 (6-14) Blood Urea Nitrogen 16 mg/dL (7-20) Creatinine 0.9 mg/dL (0.6-1.0) Estimated GFR (Cockcroft-Gault) 63.2 Glucose Level 204 mg/dL (70-99) Calcium Level 8.9 mg/dL (8.5-10.1) Test 01/05/19 11:06 Glucose (Fingerstick) 196 mg/dL (70-99) Microbiology 01/03/19 Blood Culture - Preliminary, Resulted NO GROWTH AFTER 1 DAY Medications Current Medications Ondansetron HCl (Zofran) 4 mg PRN Q6HRS PRN IV NAUSEA/VOMITING 1ST CHOICE; Start 01/03/19 at 22:00 Morphine Sulfate (Morphine Sulfate) 2 mg PRN Q4HRS PRN IV SEVERE PAIN Last administered on 01/05/19at 01:13; Start 01/03/19 at 22:00 Acetaminophen/ Hydrocodone Bitart (Lortab 5/325) 1 tab PRN Q6HRS PRN PO MILD PAIN; Start 01/03/19 at 22:00 Acetaminophen (Tylenol) 650 mg PRN Q6HRS PRN PO Headaches, Temp > 101.5F; Start 01/03/19 at 22:00 Senna/Docusate Sodium (Senna Plus) 1 tab BID PO Last administered on 01/05/19at 08:10; Start 01/04/19 at 09:00 Lactulose (Lactulose) 20 gm PRN Q12HR PRN PO CONSTIPATION 1ST CHOICE; Start 01/03/19 at 22:00 Heparin Sodium (Porcine) (Heparin Sodium) 5,000 unit Q8HRS SQ Last administered on 01/05/19at 12:52; Start 01/03/19 at 22:00 Vancomycin HCl 1.25 gm/Sodium Chloride 250 ml @ 166.667 mls/hr 1X ONCE IV ; Start 01/03/19 at 22:00; Stop 01/03/19 at 23:29; Status UNV Ceftriaxone Sodium (Rocephin) 1 gm Q24H IVP Last administered on 01/03/19at 23:12 ; Start 01/03/19 at 23:00; Stop 01/04/19 at 10:16; Status DC Vancomycin HCl (Vanco Per Pharmacy) 1 each PRN DAILY PRN MC SEE COMMENTS Last administered on 01/04/19at 15:32; Start 01/03/19 at 22:45 Vancomycin HCl 1.75 gm/Sodium Chloride 500 ml @ 250 mls/hr 1X ONCE IV Last administered on 01/03/19at 23:11; Start 01/03/19 at 23:00; Stop 01/04/19 at 00:59; Status DC Vancomycin HCl 1 gm/Sodium Chloride 250 ml @ 250 mls/hr Q12H IV Last administered on 01/04/19at 10:19; Start 01/04/19 at 11:00; Stop 01/04/19 at 15:29; Status DC Vancomycin HCl (Vancomycin Trough Level) 1 each 1X ONCE MC ; Start 01/05/19 at 20:30; Stop 01/05/19 at 20:31 Meropenem 500 mg/ Sodium Chloride 50 ml @ 100 mls/hr Q6HRS IV Last administered on 01/05/19at 11:20; Start 01/04/19 at 11:00 Ondansetron HCl (Zofran) 4 mg PRN Q6HRS PRN IV NAUSEA/VOMITING; Start 01/04/19 at 10:15; Stop 01/05/19 at 10:14; Status UNV Fentanyl Citrate (Fentanyl 2ml Vial) 25 mcg PRN Q5MIN PRN IV MILD PAIN; Start 01/04/19 at 10:15; Stop 01/05/19 at 10:14; Status UNV Fentanyl Citrate (Fentanyl 2ml Vial) 50 mcg PRN Q5MIN PRN IV MODERATE TO SEVERE PAIN; Start 01/04/19 at 10:15; Stop 01/05/19 at 10:14; Status UNV Morphine Sulfate (Morphine Sulfate) 1 mg PRN Q10MIN PRN IV SEVERE PAIN; Start 01/04/19 at 10:15; Stop 01/05/19 at 10:14; Status UNV Ringer's Solution 1,000 ml @ 30 mls/hr Q24H IV ; Start 01/04/19 at 10:13; Stop 01/04/19 at 22:12; Status UNV Lidocaine HCl (Xylocaine-Mpf 1% 2ml Vial) 2 ml PRN 1X PRN ID PRIOR TO IV START ; Start 01/04/19 at 10:15; Stop 01/04/19 at 20:00; Status DC Hydromorphone HCl (Dilaudid) 0.5 mg PRN Q10MIN PRN IV SEV PAIN, Second choice; Start 01/04/19 at 10:15; Stop 01/05/19 at 10:14; Status UNV Prochlorperazine Edisylate (Compazine) 5 mg PACU PRN PRN IV NAUSEA, MRX1; Start 01/04/19 at 10:15; Stop 01/05/19 at 10:14; Status UNV Ondansetron HCl (Zofran) 4 mg PRN Q6HRS PRN IV NAUSEA/VOMITING; Start 01/04/19 at 10:15; Stop 01/04/19 at 20:00; Status DC Fentanyl Citrate (Fentanyl 2ml Vial) 25 mcg PRN Q5MIN PRN IV MILD PAIN; Start 01/04/19 at 10:15; Stop 01/04/19 at 20:00; Status DC Fentanyl Citrate (Fentanyl 2ml Vial) 50 mcg PRN Q5MIN PRN IV MODERATE TO SEVERE PAIN Last administered on 01/04/19at 18:12; Start 01/04/19 at 10:15; Stop at 20:00; Status DC Morphine Sulfate (Morphine Sulfate) 1 mg PRN Q10MIN PRN IV SEVERE PAIN; Start 01/04/19 at 10:15; Stop 01/04/19 at 20:00; Status DC Ringer's Solution 1,000 ml @ 30 mls/hr Q24H IV ; Start 01/04/19 at 10:13; Stop 01/04/19 at 22:12; Status DC Lidocaine HCl (Xylocaine-Mpf 1% 2ml Vial) 2 ml PRN 1X PRN ID PRIOR TO IV START ; Start 01/04/19 at 10:15; Stop 01/05/19 at 10:14; Status UNV Hydromorphone HCl (Dilaudid) 0.5 mg PRN Q10MIN PRN IV SEV PAIN, Second choice; Start 01/04/19 at 10:15; Stop 01/04/19 at 10:20; Status DC Prochlorperazine Edisylate (Compazine) 5 mg PACU PRN PRN IV NAUSEA, MRX1; Start 01/04/19 at 10:15; Stop 01/04/19 at 20:00; Status DC Aspirin (Ecotrin) 81 mg DAILYWBKFT PO Last administered on 01/05/19at 08:10; Start 01/05/19 at 08:00 Atorvastatin Calcium (Lipitor) 20 mg QHS PO Last administered on 01/04/19at 21:51 ; Start 01/04/19 at 21:00 Levothyroxine Sodium (Synthroid) 112 mcg DAILY06 PO Last administered on at 05:28; Start 01/05/19 at 06:00 Losartan Potassium (Cozaar) 25 mg DAILY PO Last administered on 01/05/19at 08:11 ; Start 01/05/19 at 09:00 Insulin Human Lispro (HumaLOG) 0-7 UNITS TIDWMEALS SQ Last administered on at 11:10; Start 01/04/19 at 12:00 Dextrose (Dextrose 50%-Water Syringe) 12.5 gm PRN Q15MIN PRN IV SEE COMMENTS; Start 01/04/19 at 12:00 Vancomycin HCl 750 mg/Sodium Chloride 250 ml @ 250 mls/hr Q12H IV Last administered on 01/05/19at 09:58; Start 01/04/19 at 23:00 Lidocaine HCl (Lidocaine Pf 2% Vial) 5 ml STK-MED ONCE .ROUTE ; Start 01/04/19 at 16:10; Stop 01/04/19 at 16:11; Status DC Propofol 20 ml @ As Directed STK-MED ONCE IV ; Start 01/04/19 at 16:10; Stop 01/04 at 16:11; Status DC Dexamethasone Sodium Phosphate (Decadron) 20 mg STK-MED ONCE .ROUTE ; Start 01/04 at 16:11; Stop 01/04/19 at 16:12; Status DC Ondansetron HCl (Zofran) 4 mg STK-MED ONCE .ROUTE ; Start 01/04/19 at 16:11; Stop 01/04/19 at 16:12; Status DC Fentanyl Citrate (Fentanyl 2ml Vial) 100 mcg STK-MED ONCE .ROUTE ; Start at 17:42; Stop 01/04/19 at 17:43; Status DC Insulin Human Lispro (HumaLOG) 3 units 1X ONCE SQ ; Start 01/04/19 at 23:00; Stop 01/04/19 at 23:00; Status DC Ascorbic Acid (Vitamin C) 500 mg DAILY PO Last administered on 01/05/19at 09:54; Start 01/05/19 at 10:00 Multivitamins (Thera M Plus) 1 tab DAILY PO Last administered on 01/05/19at 09:54 ; Start 01/05/19 at 10:00 Active Scripts Active Aspirin Ec (Aspirin) 81 Mg Tablet.dr 81 Mg PO [id number] 30 Days Atorvastatin Calcium 40 Mg Tablet 20 Mg PO QHS Levothyroxine Sodium 112 Mcg Tablet 112 Mcg PO DAILY07 Reported Metformin Hcl 1,000 Mg Tablet 1,000 Mg PO BID Invokana (Canagliflozin) 300 Mg Tablet 300 Mg PO DAILY Losartan Potassium 50 Mg Tablet 25 Mg PO DAILY Vitals/I & O Vital Sign - Last 24 Hours 01/04/19 01/04/19 01/04/19 01/04/19 14:50 15:00 17:19 17:19 Temp 96.9 97.9 98.5 96.9 97.9 98.5 Pulse 80 81 94 Resp 20 18 20 B/P (MAP) 183/82 134/73 (93) 130/56 Pulse Ox 97 96 100 O2 Delivery Room Air Room Air Mask Simple Mask O2 Flow Rate 10 10 01/04/19 01/04/19 01/04/19 01/04/19 17:35 17:49 17:50 18:05 Temp 98.5 98.5 98.5 98.5 98.5 98.5 Pulse 90 86 86 Resp 18 18 18 18 B/P (MAP) 162/72 159/70 149/65 Pulse Ox 96 100 91 94 O2 Delivery Room Air Room Air Room Air Room Air 01/04/19 01/04/19 01/04/19 01/04/19 18:12 18:20 18:35 19:00 Temp 98.5 97 98.2 98.5 97.0 98.2 Pulse 84 82 88 Resp 18 18 18 18 B/P (MAP) 164/71 145/72 164/74 (104) Pulse Ox 98 95 92 97 O2 Delivery Room Air Room Air Room Air Room Air 01/04/19 01/04/19 01/04/19 01/04/19 19:15 19:30 19:45 20:00 Pulse 85 83 87 Resp 18 18 18 B/P (MAP) 156/77 (103) 156/77 (103) 163/77 (105) Pulse Ox 95 94 98 O2 Delivery Room Air Room Air Room Air Mask 01/04/19 01/04/19 01/04/19 01/04/19 20:15 20:45 21:45 22:45 Temp 97.5 97.5 Pulse 89 90 94 103 Resp 18 18 18 18 B/P (MAP) 151/77 (101) 151/79 (103) 155/79 (104) 118/61 (80) Pulse Ox 97 96 99 97 O2 Delivery Room Air Room Air Room Air Room Air 01/05/19 01/05/19 01/05/19 01/05/19 01:13 01:43 03:00 07:00 Temp 98.1 98.0 98.1 98.0 Pulse 90 86 Resp 18 20 18 18 B/P (MAP) 137/66 (89) 124/64 (84) Pulse Ox 96 95 O2 Delivery Room Air Room Air Room Air Room Air 01/05/19 01/05/19 07:26 08:11 Pulse 86 B/P (MAP) 124/64 O2 Delivery Room Air Intake and Output 01/04/19 01/04/19 01/05/19 14:59 22:59 06:59 Intake Total 700 ml 1800 ml Output Total 10 ml Balance 690 ml 1800 ml TAYLOR COLON MD Jan 05, 2019 13:22
[2019-01-05] MEDS: VANCOMYCIN PER PHARMACY MC PRN ×2 (14:05→23:07)
--- NOTE | 2019-01-05 14:58 | NUR ---
SW following. Discussed with RN, pt had wound vac placed yesterday. SW met with pt to discuss home health upon discharge, pt had [facility] prior to coming into [facility] and would like to have them again. [facility] contacted [facility] to confirm they can continue to serve pt, [place] agreed. RN notified. SW will continue to follow - possible discharge tomorrow (01/06/19).
[2019-01-05 15:00] VITALS: BP 125/76
[2019-01-05 19:00] VITALS: BP 135/73
[2019-01-05] MEDS: LACTOBACILLUS RHAMNOSUS GG 1 CAPSULE. PO SCH (21:36)
[2019-01-05] MEDS: ATORVASTATIN CALCIUM 20 MG TABLET PO SCH (21:37)
[2019-01-05 22:40] LABS: VANC TR 15.3 mcg/mL (10.0-20.0)
[2019-01-05 23:00] VITALS: BP 118/62
--- NOTE | 2019-01-05 23:09 | NUR ---
Pharmacy Vancomycin Dosing Note S: Consulted to monitor and dose vancomycin started 01/03/19. O: CHAVO GAYLE is a 63 year old F with Cellulitis, AMPUTATION WOUND . Other Antibiotics: Merrem 500MG IV Q6H LABS: Last BUN: 16 Last Creatinine: 0.9 Creatinine Clearance: 70 mL/min Last WBC: 5.8 Last Procalcitonin: Tmax (past 24 hours): 98.2 Microbiology: Pending I/O: 2500/10 Drug Levels: Last Trough level: 15.3 on 01/05/19 at 2215 Last dose given 01/05/19 at 0958 Vancomycin Dosing: Dosing Weight: Actual Target Trough: 10-20 A: Based on: Trough, Actual Wt and CrCl P: 1. 01/05/19 Continue Vancomycin 750 mg IV q12h 2. Follow up Trough level in 5 to 7 days as needed. 3. Pharmacy will continue to monitor, follow and adjust therapy as needed. ALPHONSE LUNA RPH, 01/05/19 [id number] Signed: 01/05/19 at 2311 by ALPHONSE LUNA RPH PHA
[2019-01-06] MEDS: MEROPENEM 500 MG in IV NORMAL SALINE 50ML 50 ML IV SCH ×4 (00:30→18:34)
[2019-01-06 03:00] VITALS: BP 138/78
[2019-01-06 05:44] LABS: BASO % 1 % (0-3); EOS # 0.2 x10^3/uL (0.0-0.7); EOS % 3 % (0-3); HEMATOCRIT 39.6 % (36.0-47.0); HEMOGLOBIN 12.8 g/dL (12.0-15.5); LYMPH # 2.1 x10^3/uL (1.0-4.8); LYMPH % 44 % (24-48); MEAN CORPUSCULAR HEMOGLOBIN 29 pg (25-35); MEAN CORPUSCULAR HGB CONC 32 g/dL (31-37); MEAN CORPUSCULAR VOLUME 88 fL (79-100); MONO # 0.3 x10^3/uL (0.0-1.1); MONO % 6 % (0-9); NEUT # 2.2 x10^3uL (1.8-7.7); NEUT % 46 % (31-73); PLATELET COUNT 175 x10^3/uL (140-400); RED BLOOD COUNT 4.49 x10^6/uL (3.50-5.40); RED CELL DISTRIBUTION WIDTH 14.7 % (11.5-14.5); WHITE BLOOD COUNT 4.8 x10^3/uL (4.0-11.0)
[2019-01-06 05:59] LABS: CALCIUM 8.8 mg/dL (8.5-10.1); CREATININE 0.7 mg/dL (0.6-1.0); GFR 84.5; POTASSIUM 4.3 mmol/L (3.5-5.1)
[2019-01-06] MEDS: LEVOTHYROXINE 112 MCG TABLET PO SCH (05:59)
[2019-01-06] MEDS: HEPARIN for SUB-Q USE 5,000 UNIT/ML VIAL. SQ SCH ×3 (06:05→21:56)
[2019-01-06 07:00] VITALS: BP 116/63
[2019-01-06] MEDS: INSULIN LISPRO 300 UNITS/3 ML INSULN.PEN. SQ SCH ×3 (08:00→17:11)
[2019-01-06] MEDS: ASPIRIN ENTERIC COATED 81 MG TABLET.DR. PO SCH (08:03)
--- NOTE | 2019-01-06 08:04 | PDOC ---
PROGRESS NOTES Chief Complaint Chief Complaint Right stump dehiscence s/p R BKA 11/08/18 - s/p rocephin and Vanc last night when I was called for her arrival, changed rocephin to merrem for h/o bacteremia. Consulted ID for assistance and Vascular surgery, likely to OR today. Culture wound - will await sensitivities and f/u ID recs Diabetes - medium sliding scale, hold metformin for possible surgery Hypertension - cont home meds Hyperlipidemia - cont home meds PAD s/p right superficial femoral artery/popliteal artery atherectomy and angioplasty on 10/29/2018 - Hold ASA for surgery History of Present Illness History of Present Illness 62-year-old female, with a past medical history of diabetes, hypertension and hyperlipidemia, who about a year ago sprained her ankle and returned to the hospital at the start of the year and ultimately due to poor circulation underwent a right BKA in early November and has been recovering at home with home health when her home health nurse called vascular surgeon yesterday afternoon about wound dehiscence. She denies any fever or chills, but does note she had had her leg wrapped for the past week awaiting further approval for more home health and when her nurse arrived a large amount of serosanguineous drainage was revealed. Right stump dehiscence s/p R BKA 11/08/18 - s/p rocephin and Vanc last night when I was called for her arrival. S/P I&D and wound vac placement 01/[address] Pina Feeling ok today, pain well controlled, actually has not had pain meds for over 24 hours. No BM as of yet. Blood glucose initially high, now better today. No SOB or CP. Plan: F/u ID recs - will d/w ID if oral antibiotics may be ok given her negative cultures. Difficult as she has previously had MDRO bacteremia Bowel regimen. IS PT/OT - likely can go home with home health, will need wound vac f/u as well. Plan for d/c when ok with vascular surgery and ID Vitals Vitals Vital Signs Date Time Temp Pulse Resp B/P (MAP) Pulse Ox O2 Delivery O2 Flow Rate FiO2 01/06/19 03:00 98.4 79 18 138/78 (98) 96 Room Air 98.4 Physical Exam Physical Exam CONSTITUTIONAL: She is very pleasant, cooperative, in no acute distress. Sitting on side of bed HEENT: Pupils equal and reactive. Normal conjunctivae. Oral cavity, pharynx is clear. NECK: Supple, no JVD. LUNGS: Clear to auscultation bilaterally. HEART: S1, S2. ABDOMEN: Soft, nontender, nondistended, positive bowel sounds. EXTREMITIES: No clubbing, cyanosis. Her right stump is now dressed with a wound vac and looks clean SKIN: Warm to touch without rash. NEUROLOGIC: She is nonfocal and appropriate. PSYCHIATRIC: Affect is pleasant General: Alert, Oriented X3, Cooperative, No acute distress Lungs: Clear, Other Abdomen: Normal bowel sounds, Soft, No tenderness, No hepatosplenomegaly, No masses Extremities: No clubbing, No cyanosis, Normal pulses, Other (Right stump with some swelling, redness) Skin: Other (Open wound on right stump, left ac with some abrasions) Labs LABS Laboratory Tests Test 01/05/19 11:06 01/05/19 16:48 01/05/19 21:02 01/05/19 22:15 Glucose (Fingerstick) 196 mg/dL (70-99) 224 mg/dL (70-99) 183 mg/dL (70-99) Vancomycin Level Trough 15.3 mcg/mL (10.0-20.0) Vancomycin Last Dose Date 01/05/19 Vancomycin Last Dose Time 1100 Test 01/06/19 05:05 White Blood Count 4.8 x10^3/uL (4.0-11.0) Red Blood Count 4.49 x10^6/uL (3.50-5.40) Hemoglobin 12.8 g/dL (12.0-15.5) Hematocrit 39.6 % (36.0-47.0) Mean Corpuscular Volume 88 fL (79-100) Mean Corpuscular Hemoglobin 29 pg (25-35) Mean Corpuscular Hemoglobin Concent 32 g/dL (31-37) Red Cell Distribution Width 14.7 % (11.5-14.5) Platelet Count 175 x10^3/uL (140-400) Neutrophils (%) (Auto) 46 % (31-73) Lymphocytes (%) (Auto) 44 % (24-48) Monocytes (%) (Auto) 6 % (0-9) Eosinophils (%) (Auto) 3 % (0-3) Basophils (%) (Auto) 1 % (0-3) Neutrophils # (Auto) 2.2 x10^3uL (1.8-7.7) Lymphocytes # (Auto) 2.1 x10^3/uL (1.0-4.8) Monocytes # (Auto) 0.3 x10^3/uL (0.0-1.1) Eosinophils # (Auto) 0.2 x10^3/uL (0.0-0.7) Basophils # (Auto) 0.0 x10^3/uL (0.0-0.2) Sodium Level 142 mmol/L (136-145) Potassium Level 4.3 mmol/L (3.5-5.1) Chloride Level 106 mmol/L (98-107) Carbon Dioxide Level 27 mmol/L (21-32) Anion Gap 9 (6-14) Blood Urea Nitrogen 23 mg/dL (7-20) Creatinine 0.7 mg/dL (0.6-1.0) Estimated GFR (Cockcroft-Gault) 84.5 Glucose Level 160 mg/dL (70-99) Calcium Level 8.8 mg/dL (8.5-10.1) Procalcitonin < 0.10 ng/mL (0.00-0.10) Comment Review of Relevant I have reviewed the following items nikole (where applicable) has been applied. Labs Laboratory Tests Test 01/04/19 12:07 01/04/19 17:24 01/04/19 21:05 01/05/19 02:40 Glucose (Fingerstick) 159 mg/dL (70-99) 133 mg/dL (70-99) 193 mg/dL (70-99) White Blood Count 5.8 x10^3/uL (4.0-11.0) Red Blood Count 4.48 x10^6/uL (3.50-5.40) Hemoglobin 12.8 g/dL (12.0-15.5) Hematocrit 39.2 % (36.0-47.0) Mean Corpuscular Volume 87 fL (79-100) Mean Corpuscular Hemoglobin 29 pg (25-35) Mean Corpuscular Hemoglobin Concent 33 g/dL (31-37) Red Cell Distribution Width 14.5 % (11.5-14.5) Platelet Count 161 x10^3/uL (140-400) Neutrophils (%) (Auto) 82 % (31-73) Lymphocytes (%) (Auto) 15 % (24-48) Monocytes (%) (Auto) 3 % (0-9) Eosinophils (%) (Auto) 0 % (0-3) Basophils (%) (Auto) 0 % (0-3) Neutrophils # (Auto) 4.8 x10^3uL (1.8-7.7) Lymphocytes # (Auto) 0.9 x10^3/uL (1.0-4.8) Monocytes # (Auto) 0.2 x10^3/uL (0.0-1.1) Eosinophils # (Auto) 0.0 x10^3/uL (0.0-0.7) Basophils # (Auto) 0.0 x10^3/uL (0.0-0.2) Sodium Level 142 mmol/L (136-145) Potassium Level 4.7 mmol/L (3.5-5.1) Chloride Level 105 mmol/L (98-107) Carbon Dioxide Level 25 mmol/L (21-32) Anion Gap 12 (6-14) Blood Urea Nitrogen 16 mg/dL (7-20) Creatinine 0.9 mg/dL (0.6-1.0) Estimated GFR (Cockcroft-Gault) 63.2 Glucose Level 204 mg/dL (70-99) Calcium Level 8.9 mg/dL (8.5-10.1) Test 01/05/19 07:33 01/05/19 11:06 01/05/19 16:48 01/05/19 21:02 Glucose (Fingerstick) 181 mg/dL (70-99) 196 mg/dL (70-99) 224 mg/dL (70-99) 183 mg/dL (70-99) Test 01/05/19 22:15 01/06/19 05:05 Vancomycin Level Trough 15.3 mcg/mL (10.0-20.0) Vancomycin Last Dose Date 01/05/19 Vancomycin Last Dose Time 1100 White Blood Count 4.8 x10^3/uL (4.0-11.0) Red Blood Count 4.49 x10^6/uL (3.50-5.40) Hemoglobin 12.8 g/dL (12.0-15.5) Hematocrit 39.6 % (36.0-47.0) Mean Corpuscular Volume 88 fL (79-100) Mean Corpuscular Hemoglobin 29 pg (25-35) Mean Corpuscular Hemoglobin Concent 32 g/dL (31-37) Red Cell Distribution Width 14.7 % (11.5-14.5) Platelet Count 175 x10^3/uL (140-400) Neutrophils (%) (Auto) 46 % (31-73) Lymphocytes (%) (Auto) 44 % (24-48) Monocytes (%) (Auto) 6 % (0-9) Eosinophils (%) (Auto) 3 % (0-3) Basophils (%) (Auto) 1 % (0-3) Neutrophils # (Auto) 2.2 x10^3uL (1.8-7.7) Lymphocytes # (Auto) 2.1 x10^3/uL (1.0-4.8) Monocytes # (Auto) 0.3 x10^3/uL (0.0-1.1) Eosinophils # (Auto) 0.2 x10^3/uL (0.0-0.7) Basophils # (Auto) 0.0 x10^3/uL (0.0-0.2) Sodium Level 142 mmol/L (136-145) Potassium Level 4.3 mmol/L (3.5-5.1) Chloride Level 106 mmol/L (98-107) Carbon Dioxide Level 27 mmol/L (21-32) Anion Gap 9 (6-14) Blood Urea Nitrogen 23 mg/dL (7-20) Creatinine 0.7 mg/dL (0.6-1.0) Estimated GFR (Cockcroft-Gault) 84.5 Glucose Level 160 mg/dL (70-99) Calcium Level 8.8 mg/dL (8.5-10.1) Procalcitonin < 0.10 ng/mL (0.00-0.10) Laboratory Tests Test 01/05/19 11:06 01/05/19 16:48 01/05/19 21:02 01/05/19 22:15 Glucose (Fingerstick) 196 mg/dL (70-99) 224 mg/dL (70-99) 183 mg/dL (70-99) Vancomycin Level Trough 15.3 mcg/mL (10.0-20.0) Vancomycin Last Dose Date 01/05/19 Vancomycin Last Dose Time 1100 Test 01/06/19 05:05 White Blood Count 4.8 x10^3/uL (4.0-11.0) Red Blood Count 4.49 x10^6/uL (3.50-5.40) Hemoglobin 12.8 g/dL (12.0-15.5) Hematocrit 39.6 % (36.0-47.0) Mean Corpuscular Volume 88 fL (79-100) Mean Corpuscular Hemoglobin 29 pg (25-35) Mean Corpuscular Hemoglobin Concent 32 g/dL (31-37) Red Cell Distribution Width 14.7 % (11.5-14.5) Platelet Count 175 x10^3/uL (140-400) Neutrophils (%) (Auto) 46 % (31-73) Lymphocytes (%) (Auto) 44 % (24-48) Monocytes (%) (Auto) 6 % (0-9) Eosinophils (%) (Auto) 3 % (0-3) Basophils (%) (Auto) 1 % (0-3) Neutrophils # (Auto) 2.2 x10^3uL (1.8-7.7) Lymphocytes # (Auto) 2.1 x10^3/uL (1.0-4.8) Monocytes # (Auto) 0.3 x10^3/uL (0.0-1.1) Eosinophils # (Auto) 0.2 x10^3/uL (0.0-0.7) Basophils # (Auto) 0.0 x10^3/uL (0.0-0.2) Sodium Level 142 mmol/L (136-145) Potassium Level 4.3 mmol/L (3.5-5.1) Chloride Level 106 mmol/L (98-107) Carbon Dioxide Level 27 mmol/L (21-32) Anion Gap 9 (6-14) Blood Urea Nitrogen 23 mg/dL (7-20) Creatinine 0.7 mg/dL (0.6-1.0) Estimated GFR (Cockcroft-Gault) 84.5 Glucose Level 160 mg/dL (70-99) Calcium Level 8.8 mg/dL (8.5-10.1) Procalcitonin < 0.10 ng/mL (0.00-0.10) Microbiology 01/03/19 Blood Culture - Preliminary, Resulted NO GROWTH AFTER 2 DAYS 01/04/19 Anaerobic/Aerobic Culture, Resulted Pending 01/04/19 Anaerobic Culture Result 1 (RAYNA), Resulted Pending 01/04/19 Aerobic Culture, Resulted Pending 01/04/19 Aerobic Culture Result 1 (RAYNA), Resulted Pending 01/04/19 Gram Stain - Final, Resulted 01/04/19 Gram Stain Result 1 (RAYNA) - Final, Resulted 01/04/19 Gram Stain Result 2 (RAYNA) - Final, Resulted Medications Current Medications Ondansetron HCl (Zofran) 4 mg PRN Q6HRS PRN IV NAUSEA/VOMITING 1ST CHOICE; Start 01/03/19 at 22:00 Morphine Sulfate (Morphine Sulfate) 2 mg PRN Q4HRS PRN IV SEVERE PAIN Last administered on 01/05/19at 01:13; Start 01/03/19 at 22:00 Acetaminophen/ Hydrocodone Bitart (Lortab 5/325) 1 tab PRN Q6HRS PRN PO PAIN; Start 01/03/19 at 22:00 Acetaminophen (Tylenol) 650 mg PRN Q6HRS PRN PO Headaches, Temp > 101.5F; Start 01/03/19 at 22:00 Senna/Docusate Sodium (Senna Plus) 1 tab BID PO Last administered on 01/05/19at 21:36; Start 01/04/19 at 09:00 Lactulose (Lactulose) 20 gm PRN Q12HR PRN PO CONSTIPATION 1ST CHOICE; Start 01/03/19 at 22:00 Heparin Sodium (Porcine) (Heparin Sodium) 5,000 unit Q8HRS SQ Last administered on 01/06/19at 06:05; Start 01/03/19 at 22:00 Vancomycin HCl 1.25 gm/Sodium Chloride 250 ml @ 166.667 mls/hr 1X ONCE IV ; Start 01/03/19 at 22:00; Stop 01/03/19 at 23:29; Status UNV Ceftriaxone Sodium (Rocephin) 1 gm Q24H IVP Last administered on 01/03/19at 23:12 ; Start 01/03/19 at 23:00; Stop 01/04/19 at 10:16; Status DC Vancomycin HCl (Vanco Per Pharmacy) 1 each PRN DAILY PRN MC SEE COMMENTS Last administered on 01/05/19at 23:07; Start 01/03/19 at 22:45 Vancomycin HCl 1.75 gm/Sodium Chloride 500 ml @ 250 mls/hr 1X ONCE IV Last administered on 01/03/19at 23:11; Start 01/03/19 at 23:00; Stop 01/04/19 at 00:59; Status DC Vancomycin HCl 1 gm/Sodium Chloride 250 ml @ 250 mls/hr Q12H IV Last administered on 01/04/19at 10:19; Start 01/04/19 at 11:00; Stop 01/04/19 at 15:29; Status DC Vancomycin HCl (Vancomycin Trough Level) 1 each 1X ONCE MC ; Start 01/05/19 at 22:30; Stop 01/05/19 at 22:31; Status DC Meropenem 500 mg/ Sodium Chloride 50 ml @ 100 mls/hr Q6HRS IV Last administered on 01/06/19at 05:59; Start 01/04/19 at 11:00 Ondansetron HCl (Zofran) 4 mg PRN Q6HRS PRN IV NAUSEA/VOMITING; Start 01/04/19 at 10:15; Stop 01/05/19 at 10:14; Status UNV Fentanyl Citrate (Fentanyl 2ml Vial) 25 mcg PRN Q5MIN PRN IV MILD PAIN; Start 01/04/19 at 10:15; Stop 01/05/19 at 10:14; Status UNV Fentanyl Citrate (Fentanyl 2ml Vial) 50 mcg PRN Q5MIN PRN IV MODERATE TO SEVERE PAIN; Start 01/04/19 at 10:15; Stop 01/05/19 at 10:14; Status UNV Morphine Sulfate (Morphine Sulfate) 1 mg PRN Q10MIN PRN IV SEVERE PAIN; Start 01/04/19 at 10:15; Stop 01/05/19 at 10:14; Status UNV Ringer's Solution 1,000 ml @ 30 mls/hr Q24H IV ; Start 01/04/19 at 10:13; Stop 01/04/19 at 22:12; Status UNV Lidocaine HCl (Xylocaine-Mpf 1% 2ml Vial) 2 ml PRN 1X PRN ID PRIOR TO IV START ; Start 01/04/19 at 10:15; Stop 01/04/19 at 20:00; Status DC Hydromorphone HCl (Dilaudid) 0.5 mg PRN Q10MIN PRN IV SEV PAIN, Second choice; Start 01/04/19 at 10:15; Stop 01/05/19 at 10:14; Status UNV Prochlorperazine Edisylate (Compazine) 5 mg PACU PRN PRN IV NAUSEA, MRX1; Start 01/04/19 at 10:15; Stop 01/05/19 at 10:14; Status UNV Ondansetron HCl (Zofran) 4 mg PRN Q6HRS PRN IV NAUSEA/VOMITING; Start 01/04/19 at 10:15; Stop 01/04/19 at 20:00; Status DC Fentanyl Citrate (Fentanyl 2ml Vial) 25 mcg PRN Q5MIN PRN IV MILD PAIN; Start 01/04/19 at 10:15; Stop 01/04/19 at 20:00; Status DC Fentanyl Citrate (Fentanyl 2ml Vial) 50 mcg PRN Q5MIN PRN IV MODERATE TO SEVERE PAIN Last administered on 01/04/19at 18:12; Start 01/04/19 at 10:15; Stop at 20:00; Status DC Morphine Sulfate (Morphine Sulfate) 1 mg PRN Q10MIN PRN IV SEVERE PAIN; Start 01/04/19 at 10:15; Stop 01/04/19 at 20:00; Status DC Ringer's Solution 1,000 ml @ 30 mls/hr Q24H IV ; Start 01/04/19 at 10:13; Stop 01/04/19 at 22:12; Status DC Lidocaine HCl (Xylocaine-Mpf 1% 2ml Vial) 2 ml PRN 1X PRN ID PRIOR TO IV START ; Start 01/04/19 at 10:15; Stop 01/05/19 at 10:14; Status UNV Hydromorphone HCl (Dilaudid) 0.5 mg PRN Q10MIN PRN IV SEV PAIN, Second choice; Start 01/04/19 at 10:15; Stop 01/04/19 at 10:20; Status DC Prochlorperazine Edisylate (Compazine) 5 mg PACU PRN PRN IV NAUSEA, MRX1; Start 01/04/19 at 10:15; Stop 01/04/19 at 20:00; Status DC Aspirin (Ecotrin) 81 mg DAILYWBKFT PO Last administered on 01/06/19at 08:03; Start 01/05/19 at 08:00 Atorvastatin Calcium (Lipitor) 20 mg QHS PO Last administered on 01/05/19at 21:37 ; Start 01/04/19 at 21:00 Levothyroxine Sodium (Synthroid) 112 mcg DAILY06 PO Last administered on at 05:59; Start 01/05/19 at 06:00 Losartan Potassium (Cozaar) 25 mg DAILY PO Last administered on 01/05/19at 08:11 ; Start 01/05/19 at 09:00 Insulin Human Lispro (HumaLOG) 0-7 UNITS TIDWMEALS SQ Last administered on at 17:07; Start 01/04/19 at 12:00 Dextrose (Dextrose 50%-Water Syringe) 12.5 gm PRN Q15MIN PRN IV SEE COMMENTS; Start 01/04/19 at 12:00 Vancomycin HCl 750 mg/Sodium Chloride 250 ml @ 250 mls/hr Q12H IV Last administered on 01/05/19at 23:21; Start 01/04/19 at 23:00 Lidocaine HCl (Lidocaine Pf 2% Vial) 5 ml STK-MED ONCE .ROUTE ; Start 01/04/19 at 16:10; Stop 01/04/19 at 16:11; Status DC Propofol 20 ml @ As Directed STK-MED ONCE IV ; Start 01/04/19 at 16:10; Stop 01/04 at 16:11; Status DC Dexamethasone Sodium Phosphate (Decadron) 20 mg STK-MED ONCE .ROUTE ; Start 01/04 at 16:11; Stop 01/04/19 at 16:12; Status DC Ondansetron HCl (Zofran) 4 mg STK-MED ONCE .ROUTE ; Start 01/04/19 at 16:11; Stop 01/04/19 at 16:12; Status DC Fentanyl Citrate (Fentanyl 2ml Vial) 100 mcg STK-MED ONCE .ROUTE ; Start at 17:42; Stop 01/04/19 at 17:43; Status DC Insulin Human Lispro (HumaLOG) 3 units 1X ONCE SQ ; Start 01/04/19 at 23:00; Stop 01/04/19 at 23:00; Status DC Ascorbic Acid (Vitamin C) 500 mg DAILY PO Last administered on 01/05/19at 09:54; Start 01/05/19 at 10:00 Multivitamins (Thera M Plus) 1 tab DAILY PO Last administered on 01/05/19at 09:54 ; Start 01/05/19 at 10:00 Lactobacillus Rhamnosus (Culturelle) 1 cap BID PO Last administered on at 21:36; Start 01/05/19 at 21:00 Active Scripts Active Aspirin Ec (Aspirin) 81 Mg Tablet. 81 Mg PO [id number] 30 Days Atorvastatin Calcium 40 Mg Tablet 20 Mg PO QHS Levothyroxine Sodium 112 Mcg Tablet 112 Mcg PO DAILY07 Reported Metformin Hcl 1,000 Mg Tablet 1,000 Mg PO BID Invokana (Canagliflozin) 300 Mg Tablet 300 Mg PO DAILY Losartan Potassium 50 Mg Tablet 25 Mg PO DAILY Vitals/I & O Vital Sign - Last 24 Hours 01/05/19 01/05/19 01/05/19 01/05/19 08:11 11:00 15:00 19:00 Temp 98.2 97.5 98.5 98.2 97.5 98.5 Pulse 86 88 88 83 Resp 18 16 20 B/P (MAP) 124/64 126/58 (80) 125/76 (92) 135/73 (93) Pulse Ox 96 96 97 O2 Delivery Room Air Room Air Room Air 01/05/19 01/05/19 01/06/19 20:00 23:00 03:00 Temp 98.5 98.4 98.5 98.4 Pulse 75 79 Resp 20 18 B/P (MAP) 118/62 (80) 138/78 (98) Pulse Ox 98 96 O2 Delivery Room Air Room Air Room Air Intake and Output 01/05/19 01/05/19 01/06/19 15:00 23:00 07:00 Intake Total 200 ml 300 ml Output Total 400 ml 1100 ml Balance -200 ml -800 ml TAYLOR COLON MD Jan 06, 2019 08:04
--- NOTE | 2019-01-06 08:40 | NUR ---
Wound Care [employer] wound vac application has been submitted, awaiting approval. Will inform SW and RN if/when approved.
[2019-01-06] MEDS ORDERED: HYDR-2761 PO (08:56)
[2019-01-06] MEDS: LOSARTAN POTASSIUM 25 MG TABLET. PO SCH (09:40)
[2019-01-06] MEDS: SENNOSIDES/DOCUSATE 8.6/50MG TABLET. PO SCH ×2 (09:40→20:51)
[2019-01-06] MEDS: MULTIVITAMIN with MINERAL TABLET. PO SCH (09:40)
[2019-01-06] MEDS: ASCORBIC ACID 500 MG TABLET PO SCH (09:40)
[2019-01-06] MEDS: LACTOBACILLUS RHAMNOSUS GG 1 CAPSULE. PO SCH ×2 (09:40→20:52)
[2019-01-06 11:00] VITALS: BP 138/63
--- NOTE | 2019-01-06 11:10 | PDOC ---
Infectious Disease Note Subjective Subjective Doing well and hoping to leave soon No F/C/S/N/v/D/SOA/rash Vital Sign Vital Signs Vital Signs Date Time Temp Pulse Resp B/P (MAP) Pulse Ox O2 Delivery O2 Flow Rate FiO2 01/06/19 09:40 83 116/63 01/06/19 07:00 98.1 16 97 Room Air 98.1 Physical Exam PHYSICAL EXAM CONSTITUTIONAL: She is very pleasant, cooperative, in no acute distress. comfortable HEENT: Pupils equal and reactive. Normal conjunctivae. Oral cavity, pharynx is clear. NECK: Supple, no JVD. LUNGS: Clear to auscultation bilaterally. HEART: S1, S2. ABDOMEN: Soft, nontender, nondistended, positive bowel sounds. EXTREMITIES: No clubbing, cyanosis. Her right stump is now dressed with a wound vac and looks clean SKIN: Warm to touch without rash. NEUROLOGIC: She is nonfocal and appropriate. PSYCHIATRIC: Affect is pleasant Labs Lab Laboratory Tests Test 01/05/19 16:48 01/05/19 21:02 01/05/19 22:15 01/06/19 05:05 Glucose (Fingerstick) 224 mg/dL (70-99) 183 mg/dL (70-99) Vancomycin Level Trough 15.3 mcg/mL (10.0-20.0) Vancomycin Last Dose Date 01/05/19 Vancomycin Last Dose Time 1100 White Blood Count 4.8 x10^3/uL (4.0-11.0) Red Blood Count 4.49 x10^6/uL (3.50-5.40) Hemoglobin 12.8 g/dL (12.0-15.5) Hematocrit 39.6 % (36.0-47.0) Mean Corpuscular Volume 88 fL (79-100) Mean Corpuscular Hemoglobin 29 pg (25-35) Mean Corpuscular Hemoglobin Concent 32 g/dL (31-37) Red Cell Distribution Width 14.7 % (11.5-14.5) Platelet Count 175 x10^3/uL (140-400) Neutrophils (%) (Auto) 46 % (31-73) Lymphocytes (%) (Auto) 44 % (24-48) Monocytes (%) (Auto) 6 % (0-9) Eosinophils (%) (Auto) 3 % (0-3) Basophils (%) (Auto) 1 % (0-3) Neutrophils # (Auto) 2.2 x10^3uL (1.8-7.7) Lymphocytes # (Auto) 2.1 x10^3/uL (1.0-4.8) Monocytes # (Auto) 0.3 x10^3/uL (0.0-1.1) Eosinophils # (Auto) 0.2 x10^3/uL (0.0-0.7) Basophils # (Auto) 0.0 x10^3/uL (0.0-0.2) Sodium Level 142 mmol/L (136-145) Potassium Level 4.3 mmol/L (3.5-5.1) Chloride Level 106 mmol/L (98-107) Carbon Dioxide Level 27 mmol/L (21-32) Anion Gap 9 (6-14) Blood Urea Nitrogen 23 mg/dL (7-20) Creatinine 0.7 mg/dL (0.6-1.0) Estimated GFR (Cockcroft-Gault) 84.5 Glucose Level 160 mg/dL (70-99) Calcium Level 8.8 mg/dL (8.5-10.1) Procalcitonin < 0.10 ng/mL (0.00-0.10) Test 01/06/19 07:58 Glucose (Fingerstick) 147 mg/dL (70-99) Micro Microbiology 01/03/19 Blood Culture - Preliminary, Resulted NO GROWTH AFTER 1 DAY Objective Assessment Right stump dehiscence s/p R BKA 11/08/18 - s/p rocephin times one in ER on Vanc s /p I and D 01/04 - no evidence of infection per op note - no bone PAD s/p right superficial femoral artery/popliteal artery atherectomy and angioplasty on 10/29/2018 H/o Streptococcus oralis bacteremia POA Oct 22 2018 H/o Klebsiella oxytoca and Enterococcus faecalis, PCN sensitive. Diabetes II Tobaccoism HTN HLD Plan Plan of Care Cont Vanc/ Meropenem F/u Cult wound - still neg so far F/u labs WILLIE MANN MD Jan 06, 2019 11:10
--- NOTE | 2019-01-06 11:22 | NUR ---
SW following. Discussed with RN, pt can discharge home with [facility] when ready. SW will continue to follow.
--- NOTE | 2019-01-06 12:47 | PDOC ---
Provider Note Provider Note Vascular S: Patient seen and examined in room. Patient denies any pain. O: Awake and alert VSS, afebrile Vac in place and functioning with minimal drainage right BKA stump. Skin edges intact, minimal erythema. A/P: Right BKA dehiscence POD #2 I&D right BKA stump including muscle and fascia first 20 cm Placement of wound VAC 2 separate sponges first is 6 cm x 2 cm next is 6 cm x 1 cm Awaiting home vac approval, plan to change vac tomorrow prior to discharge if approved. If Vac is approved today then ok to discharge from vascular standpoint. Abx per ID. Patient will need follow up in [facility] and with Dr. William. CHARLI KRUGER APRN Jan 06, 2019 12:46
[2019-01-06] MEDS: VANCOMYCIN 750 MG in IV NORMAL SALINE 250ML 250 ML IV SCH ×2 (12:51→23:54)
[2019-01-06] MEDS: VANCOMYCIN PER PHARMACY MC PRN (13:29)
--- NOTE | 2019-01-06 14:21 | NUR ---
Wound Care Pt's home wound vac has been approved through [facility], CATHY oDdd and Deana Olmstead with Vascular. Will await discharge orders.
[2019-01-06 15:00] VITALS: BP 123/60
--- NOTE | 2019-01-06 16:18 | NUR ---
SW following. Pt staying another night for Dr. Mcginnis to check cultures tomorrow (01/07/19). Pt to discharge home with [facility], [facility] faxed clinicals. PT choice and rights letter signed and placed on chart.
[2019-01-06 19:15] VITALS: BP 112/59
[2019-01-06] MEDS: ATORVASTATIN CALCIUM 20 MG TABLET PO SCH (20:52)
[2019-01-06 23:02] VITALS: BP 124/61
[2019-01-07] MEDS: MEROPENEM 500 MG in IV NORMAL SALINE 50ML 50 ML IV SCH ×2 (01:31→05:49)
[2019-01-07 03:05] VITALS: BP 123/61
[2019-01-07 05:33] LABS: CREATININE 0.8 mg/dL (0.6-1.0); GFR 72.4
[2019-01-07] MEDS: LEVOTHYROXINE 112 MCG TABLET PO SCH (05:49)
[2019-01-07] MEDS: HEPARIN for SUB-Q USE 5,000 UNIT/ML VIAL. SQ SCH (05:55)
[2019-01-07 07:00] VITALS: BP 150/73
[2019-01-07] MEDS: ASPIRIN ENTERIC COATED 81 MG TABLET.DR. PO SCH (08:09)
[2019-01-07] MEDS: SENNOSIDES/DOCUSATE 8.6/50MG TABLET. PO SCH (08:09)
[2019-01-07] MEDS: ASCORBIC ACID 500 MG TABLET PO SCH (08:09)
[2019-01-07] MEDS: LOSARTAN POTASSIUM 25 MG TABLET. PO SCH (08:10)
[2019-01-07] MEDS: LACTOBACILLUS RHAMNOSUS GG 1 CAPSULE. PO SCH (08:10)
[2019-01-07] MEDS: MULTIVITAMIN with MINERAL TABLET. PO SCH (08:10)
[2019-01-07] MEDS: INSULIN LISPRO 300 UNITS/3 ML INSULN.PEN. SQ SCH ×2 (08:13→11:45)
--- NOTE | 2019-01-07 08:29 | PDOC ---
PROGRESS NOTES Chief Complaint Chief Complaint Right stump dehiscence s/p R BKA 11/08/18 - s/p rocephin and Vanc last night when I was called for her arrival, changed rocephin to merrem for h/o bacteremia. Consulted ID for assistance and Vascular surgery, likely to OR today. Culture wound - will await sensitivities and f/u ID recs Diabetes - medium sliding scale, hold metformin for possible surgery Hypertension - cont home meds Hyperlipidemia - cont home meds PAD s/p right superficial femoral artery/popliteal artery atherectomy and angioplasty on 10/29/2018 - Hold ASA for surgery History of Present Illness History of Present Illness 62-year-old female, with a past medical history of diabetes, hypertension and hyperlipidemia, who about a year ago sprained her ankle and returned to the hospital at the start of the year and ultimately due to poor circulation underwent a right BKA in early November and has been recovering at home with home health when her home health nurse called vascular surgeon yesterday afternoon about wound dehiscence. She denies any fever or chills, but does note she had had her leg wrapped for the past week awaiting further approval for more home health and when her nurse arrived a large amount of serosanguineous drainage was revealed. Right stump dehiscence s/p R BKA 11/08/18 - s/p rocephin and Vanc last night when I was called for her arrival. S/P I&D and wound vac placement 01/[address] Pina Feeling ok today, pain well controlled, actually has not had pain meds for over 24 hours. No BM as of yet. Blood glucose initially high, now better today. No SOB or CP. Her wound culture returns with MRSA, tetracycline sensitive Plan: F/u ID recs - will d/w ID if oral antibiotics - doxycycline vs bactrim will be appropriate Bowel regimen. IS PT/OT - likely can go home with home health, will need wound vac f/u as well. Plan for d/c when ok with vascular surgery and ID Vitals Vitals Vital Signs Date Time Temp Pulse Resp B/P (MAP) Pulse Ox O2 Delivery O2 Flow Rate FiO2 01/07/19 08:10 74 150/73 01/07/19 07:29 Room Air 01/07/19 03:05 97.8 18 97 97.8 Physical Exam Physical Exam CONSTITUTIONAL: She is very pleasant, cooperative, in no acute distress. comfortable HEENT: Pupils equal and reactive. Normal conjunctivae. Oral cavity, pharynx is clear. NECK: Supple, no JVD. LUNGS: Clear to auscultation bilaterally. HEART: S1, S2. ABDOMEN: Soft, nontender, nondistended, positive bowel sounds. EXTREMITIES: No clubbing, cyanosis. Her right stump is now dressed with a wound vac and looks clean SKIN: Warm to touch without rash. NEUROLOGIC: She is nonfocal and appropriate. PSYCHIATRIC: Affect is pleasant General: Alert, Oriented X3, Cooperative, No acute distress Lungs: Clear, Other Abdomen: Normal bowel sounds, Soft, No tenderness, No hepatosplenomegaly, No masses Extremities: No clubbing, No cyanosis, Normal pulses, Other (Right stump with some swelling, redness) Skin: Other (Open wound on right stump, left ac with some abrasions) Labs LABS Laboratory Tests Test 01/06/19 11:41 01/06/19 16:55 01/06/19 21:01 01/07/19 04:25 Glucose (Fingerstick) 198 mg/dL (70-99) 198 mg/dL (70-99) 192 mg/dL (70-99) Creatinine 0.8 mg/dL (0.6-1.0) Estimated GFR (Cockcroft-Gault) 72.4 Test 01/07/19 08:06 Glucose (Fingerstick) 180 mg/dL (70-99) Comment Review of Relevant I have reviewed the following items nikole (where applicable) has been applied. Labs Laboratory Tests Test 01/05/19 11:06 01/05/19 16:48 01/05/19 21:02 01/05/19 22:15 Glucose (Fingerstick) 196 mg/dL (70-99) 224 mg/dL (70-99) 183 mg/dL (70-99) Vancomycin Level Trough 15.3 mcg/mL (10.0-20.0) Vancomycin Last Dose Date 01/05/19 Vancomycin Last Dose Time 1100 Test 01/06/19 05:05 01/06/19 07:58 01/06/19 11:41 01/06/19 16:55 White Blood Count 4.8 x10^3/uL (4.0-11.0) Red Blood Count 4.49 x10^6/uL (3.50-5.40) Hemoglobin 12.8 g/dL (12.0-15.5) Hematocrit 39.6 % (36.0-47.0) Mean Corpuscular Volume 88 fL (79-100) Mean Corpuscular Hemoglobin 29 pg (25-35) Mean Corpuscular Hemoglobin Concent 32 g/dL (31-37) Red Cell Distribution Width 14.7 % (11.5-14.5) Platelet Count 175 x10^3/uL (140-400) Neutrophils (%) (Auto) 46 % (31-73) Lymphocytes (%) (Auto) 44 % (24-48) Monocytes (%) (Auto) 6 % (0-9) Eosinophils (%) (Auto) 3 % (0-3) Basophils (%) (Auto) 1 % (0-3) Neutrophils # (Auto) 2.2 x10^3uL (1.8-7.7) Lymphocytes # (Auto) 2.1 x10^3/uL (1.0-4.8) Monocytes # (Auto) 0.3 x10^3/uL (0.0-1.1) Eosinophils # (Auto) 0.2 x10^3/uL (0.0-0.7) Basophils # (Auto) 0.0 x10^3/uL (0.0-0.2) Sodium Level 142 mmol/L (136-145) Potassium Level 4.3 mmol/L (3.5-5.1) Chloride Level 106 mmol/L (98-107) Carbon Dioxide Level 27 mmol/L (21-32) Anion Gap 9 (6-14) Blood Urea Nitrogen 23 mg/dL (7-20) Creatinine 0.7 mg/dL (0.6-1.0) Estimated GFR (Cockcroft-Gault) 84.5 Glucose Level 160 mg/dL (70-99) Calcium Level 8.8 mg/dL (8.5-10.1) Procalcitonin < 0.10 ng/mL (0.00-0.10) Glucose (Fingerstick) 147 mg/dL (70-99) 198 mg/dL (70-99) 198 mg/dL (70-99) Test 01/06/19 21:01 01/07/19 04:25 01/07/19 08:06 Glucose (Fingerstick) 192 mg/dL (70-99) 180 mg/dL (70-99) Creatinine 0.8 mg/dL (0.6-1.0) Estimated GFR (Cockcroft-Gault) 72.4 Laboratory Tests Test 01/06/19 11:41 01/06/19 16:55 01/06/19 21:01 01/07/19 04:25 Glucose (Fingerstick) 198 mg/dL (70-99) 198 mg/dL (70-99) 192 mg/dL (70-99) Creatinine 0.8 mg/dL (0.6-1.0) Estimated GFR (Cockcroft-Gault) 72.4 Test 01/07/19 08:06 Glucose (Fingerstick) 180 mg/dL (70-99) Microbiology 01/03/19 Blood Culture - Preliminary, Resulted NO GROWTH AFTER 3 DAYS 01/04/19 Anaerobic/Aerobic Culture, Resulted Pending 01/04/19 Anaerobic Culture Result 1 (RAYNA), Resulted Pending 01/04/19 Aerobic Culture - Preliminary, Resulted 01/04/19 Aerobic Culture Result 1 (RAYNA) - Preliminary, Resulted 01/04/19 Gram Stain - Final, Resulted 01/04/19 Gram Stain Result 1 (RAYNA) - Final, Resulted 01/04/19 Gram Stain Result 2 (RAYNA) - Final, Resulted Medications Current Medications Ondansetron HCl (Zofran) 4 mg PRN Q6HRS PRN IV NAUSEA/VOMITING 1ST CHOICE; Start 01/03/19 at 22:00 Morphine Sulfate (Morphine Sulfate) 2 mg PRN Q4HRS PRN IV SEVERE PAIN Last administered on 01/05/19at 01:13; Start 01/03/19 at 22:00 Acetaminophen/ Hydrocodone Bitart (Lortab 5/325) 1 tab PRN Q6HRS PRN PO PAIN; Start 01/03/19 at 22:00 Acetaminophen (Tylenol) 650 mg PRN Q6HRS PRN PO Headaches, Temp > 101.5F; Start 01/03/19 at 22:00 Senna/Docusate Sodium (Senna Plus) 1 tab BID PO Last administered on 01/07/19at 08:09; Start 01/04/19 at 09:00 Lactulose (Lactulose) 20 gm PRN Q12HR PRN PO CONSTIPATION 1ST CHOICE; Start 01/03/19 at 22:00 Heparin Sodium (Porcine) (Heparin Sodium) 5,000 unit Q8HRS SQ Last administered on 01/07/19at 05:55; Start 01/03/19 at 22:00 Vancomycin HCl 1.25 gm/Sodium Chloride 250 ml @ 166.667 mls/hr 1X ONCE IV ; Start 01/03/19 at 22:00; Stop 01/03/19 at 23:29; Status UNV Ceftriaxone Sodium (Rocephin) 1 gm Q24H IVP Last administered on 01/03/19at 23:12 ; Start 01/03/19 at 23:00; Stop 01/04/19 at 10:16; Status DC Vancomycin HCl (Vanco Per Pharmacy) 1 each PRN DAILY PRN MC SEE COMMENTS Last administered on 01/06/19at 13:29; Start 01/03/19 at 22:45 Vancomycin HCl 1.75 gm/Sodium Chloride 500 ml @ 250 mls/hr 1X ONCE IV Last administered on 01/03/19at 23:11; Start 01/03/19 at 23:00; Stop 01/04/19 at 00:59; Status DC Vancomycin HCl 1 gm/Sodium Chloride 250 ml @ 250 mls/hr Q12H IV Last administered on 01/04/19at 10:19; Start 01/04/19 at 11:00; Stop 01/04/19 at 15:29; Status DC Vancomycin HCl (Vancomycin Trough Level) 1 each 1X ONCE MC ; Start 01/05/19 at 22:30; Stop 01/05/19 at 22:31; Status DC Meropenem 500 mg/ Sodium Chloride 50 ml @ 100 mls/hr Q6HRS IV Last administered on 01/07/19at 05:49; Start 01/04/19 at 11:00 Ondansetron HCl (Zofran) 4 mg PRN Q6HRS PRN IV NAUSEA/VOMITING; Start 01/04/19 at 10:15; Stop 01/05/19 at 10:14; Status UNV Fentanyl Citrate (Fentanyl 2ml Vial) 25 mcg PRN Q5MIN PRN IV MILD PAIN; Start 01/04/19 at 10:15; Stop 01/05/19 at 10:14; Status UNV Fentanyl Citrate (Fentanyl 2ml Vial) 50 mcg PRN Q5MIN PRN IV MODERATE TO SEVERE PAIN; Start 01/04/19 at 10:15; Stop 01/05/19 at 10:14; Status UNV Morphine Sulfate (Morphine Sulfate) 1 mg PRN Q10MIN PRN IV SEVERE PAIN; Start 01/04/19 at 10:15; Stop 01/05/19 at 10:14; Status UNV Ringer's Solution 1,000 ml @ 30 mls/hr Q24H IV ; Start 01/04/19 at 10:13; Stop 01/04/19 at 22:12; Status UNV Lidocaine HCl (Xylocaine-Mpf 1% 2ml Vial) 2 ml PRN 1X PRN ID PRIOR TO IV START ; Start 01/04/19 at 10:15; Stop 01/04/19 at 20:00; Status DC Hydromorphone HCl (Dilaudid) 0.5 mg PRN Q10MIN PRN IV SEV PAIN, Second choice; Start 01/04/19 at 10:15; Stop 01/05/19 at 10:14; Status UNV Prochlorperazine Edisylate (Compazine) 5 mg PACU PRN PRN IV NAUSEA, MRX1; Start 01/04/19 at 10:15; Stop 01/05/19 at 10:14; Status UNV Ondansetron HCl (Zofran) 4 mg PRN Q6HRS PRN IV NAUSEA/VOMITING; Start 01/04/19 at 10:15; Stop 01/04/19 at 20:00; Status DC Fentanyl Citrate (Fentanyl 2ml Vial) 25 mcg PRN Q5MIN PRN IV MILD PAIN; Start 01/04/19 at 10:15; Stop 01/04/19 at 20:00; Status DC Fentanyl Citrate (Fentanyl 2ml Vial) 50 mcg PRN Q5MIN PRN IV MODERATE TO SEVERE PAIN Last administered on 01/04/19at 18:12; Start 01/04/19 at 10:15; Stop at 20:00; Status DC Morphine Sulfate (Morphine Sulfate) 1 mg PRN Q10MIN PRN IV SEVERE PAIN; Start 01/04/19 at 10:15; Stop 01/04/19 at 20:00; Status DC Ringer's Solution 1,000 ml @ 30 mls/hr Q24H IV ; Start 01/04/19 at 10:13; Stop 01/04/19 at 22:12; Status DC Lidocaine HCl (Xylocaine-Mpf 1% 2ml Vial) 2 ml PRN 1X PRN ID PRIOR TO IV START ; Start 01/04/19 at 10:15; Stop 01/05/19 at 10:14; Status UNV Hydromorphone HCl (Dilaudid) 0.5 mg PRN Q10MIN PRN IV SEV PAIN, Second choice; Start 01/04/19 at 10:15; Stop 01/04/19 at 10:20; Status DC Prochlorperazine Edisylate (Compazine) 5 mg PACU PRN PRN IV NAUSEA, MRX1; Start 01/04/19 at 10:15; Stop 01/04/19 at 20:00; Status DC Aspirin (Ecotrin) 81 mg DAILYWBKFT PO Last administered on 01/07/19 08:09; Start 01/05/19 at 08:00 Atorvastatin Calcium (Lipitor) 20 mg QHS PO Last administered on 01/06/19at 20:52 ; Start 01/04/19 at 21:00 Levothyroxine Sodium (Synthroid) 112 mcg DAILY06 PO Last administered on at 05:49; Start 01/05/19 at 06:00 Losartan Potassium (Cozaar) 25 mg DAILY PO Last administered on 01/07/19at 08:10 ; Start 01/05/19 at 09:00 Insulin Human Lispro (HumaLOG) 0-7 UNITS TIDWMEALS SQ Last administered on at 08:13; Start 01/04/19 at 12:00 Dextrose (Dextrose 50%-Water Syringe) 12.5 gm PRN Q15MIN PRN IV SEE COMMENTS; Start 01/04/19 at 12:00 Vancomycin HCl 750 mg/Sodium Chloride 250 ml @ 250 mls/hr Q12H IV Last administered on 01/06/19at 23:54; Start 01/04/19 at 23:00 Lidocaine HCl (Lidocaine Pf 2% Vial) 5 ml STK-MED ONCE .ROUTE ; Start 01/04/19 at 16:10; Stop 01/04/19 at 16:11; Status DC Propofol 20 ml @ As Directed STK-MED ONCE IV ; Start 01/04/19 at 16:10; Stop 01/04 at 16:11; Status DC Dexamethasone Sodium Phosphate (Decadron) 20 mg STK-MED ONCE .ROUTE ; Start 01/04 at 16:11; Stop 01/04/19 at 16:12; Status DC Ondansetron HCl (Zofran) 4 mg STK-MED ONCE .ROUTE ; Start 01/04/19 at 16:11; Stop 01/04/19 at 16:12; Status DC Fentanyl Citrate (Fentanyl 2ml Vial) 100 mcg STK-MED ONCE .ROUTE ; Start at 17:42; Stop 01/04/19 at 17:43; Status DC Insulin Human Lispro (HumaLOG) 3 units 1X ONCE SQ ; Start 01/04/19 at 23:00; Stop 01/04/19 at 23:00; Status DC Ascorbic Acid (Vitamin C) 500 mg DAILY PO Last administered on 01/07/19at 08:09; Start 01/05/19 at 10:00 Multivitamins (Thera M Plus) 1 tab DAILY PO Last administered on 01/07/19at 08:10 ; Start 01/05/19 at 10:00 Lactobacillus Rhamnosus (Culturelle) 1 cap BID PO Last administered on at 08:10; Start 01/05/19 at 21:00 Active Scripts Active Hydrocodone-Apap 5-325 (Hydrocodone Bit/Acetaminophen) 1 Tab Tablet 1 Tab PO PRN Q6HRS PRN 6 Days Aspirin Ec (Aspirin) 81 Mg Tablet.dr 81 Mg PO DAILYWBKFT 30 Days Atorvastatin Calcium 40 Mg Tablet 20 Mg PO QHS Levothyroxine Sodium 112 Mcg Tablet 112 Mcg PO DAILY07 Reported Metformin Hcl 1,000 Mg Tablet 1,000 Mg PO BID Invokana (Canagliflozin) 300 Mg Tablet 300 Mg PO DAILY Losartan Potassium 50 Mg Tablet 25 Mg PO DAILY Vitals/I & O Vital Sign - Last 24 Hours 01/06/19 01/06/19 01/06/19 01/06/19 09:40 11:00 15:00 19:15 Temp 97.8 97.7 98.5 97.8 97.7 98.5 Pulse 83 75 76 83 Resp 16 16 18 B/P (MAP) 116/63 138/63 (88) 123/60 (81) 112/59 (76) Pulse Ox 97 98 99 O2 Delivery Room Air Room Air Room Air 01/06/19 01/06/19 01/07/19 01/07/19 20:50 23:02 03:05 07:29 Temp 98.1 97.8 98.1 97.8 Pulse 80 74 Resp 20 18 B/P (MAP) 124/61 (82) 123/61 (81) Pulse Ox 98 97 O2 Delivery Room Air Room Air Room Air Room Air 01/07/19 08:10 Pulse 74 B/P (MAP) 150/73 Intake and Output 01/06/19 01/06/19 01/07/19 15:00 23:00 07:00 Intake Total 540 ml Output Total 200 ml Balance -200 ml 540 ml TAYLOR COLON MD Jan 07, 2019 08:29
--- NOTE | 2019-01-07 10:27 | PDOC ---
Infectious Disease Note Subjective Subjective Doing well and hoping to leave soon No F/C/S/N/v/D/SOA/rash Vital Sign Vital Signs Vital Signs Date Time Temp Pulse Resp B/P (MAP) Pulse Ox O2 Delivery O2 Flow Rate FiO2 01/07/19 08:10 74 150/73 01/07/19 07:29 Room Air 01/07/19 07:00 98.0 16 97 98.0 Physical Exam PHYSICAL EXAM CONSTITUTIONAL: She is very pleasant, cooperative, in no acute distress. comfortable HEENT: Pupils equal and reactive. Normal conjunctivae. Oral cavity, pharynx is clear. NECK: Supple, no JVD. LUNGS: Clear to auscultation bilaterally. HEART: S1, S2. ABDOMEN: Soft, nontender, nondistended, positive bowel sounds. EXTREMITIES: No clubbing, cyanosis. Her right stump is now dressed with a wound vac and looks clean SKIN: Warm to touch without rash. NEUROLOGIC: She is nonfocal and appropriate. PSYCHIATRIC: Affect is pleasant Labs Lab Laboratory Tests Test 01/06/19 11:41 01/06/19 16:55 01/06/19 21:01 01/07/19 04:25 Glucose (Fingerstick) 198 mg/dL (70-99) 198 mg/dL (70-99) 192 mg/dL (70-99) Creatinine 0.8 mg/dL (0.6-1.0) Estimated GFR (Cockcroft-Gault) 72.4 Test 01/07/19 08:06 Glucose (Fingerstick) 180 mg/dL (70-99) Micro AEROBIC RES 1 Final Comment Methicillin - resistant Staphylococcus aureus 4+ Based on resistance to oxacillin this isolate would be resistant to all currently available beta-lactam antimicrobial agents, with the exception of the newer cephalosporins with anti-MRSA activity, such as Ceftaroline ANTIMICROBIAL SUSCEPTIBILITY Final Comment S = Susceptible; I = Intermediate; R = Resistant P = Positive; N = Negative MICS are expressed in micrograms per mL Antibiotic RSLT#1 RSLT#2 RSLT#3 RSLT#4 Ciprofloxacin R>=8 Clindamycin R>=8 Erythromycin R>=8 Gentamicin S<=0.5 Levofloxacin R>=8 Linezolid S =1 Oxacillin R>=4 Penicillin R>=0.5 Rifampin S<=0.5 Tetracycline S<=1 Trimethoprim/Sulfa S<=10 Vancomycin S<=0.5 Microbiology 01/03/19 Blood Culture - Preliminary, Resulted NO GROWTH AFTER 1 DAY Objective Assessment Right stump dehiscence s/p R BKA 11/08/18 - s/p rocephin times one in ER on Vanc s /p I and D 01/04 - no evidence of infection per op note - no bone PAD s/p right superficial femoral artery/popliteal artery atherectomy and angioplasty on 10/29/2018 H/o Streptococcus oralis bacteremia POA Oct 22 2018 H/o Klebsiella oxytoca and Enterococcus faecalis, PCN sensitive. Diabetes II Tobaccoism HTN HLD Plan Plan of Care Discont Vanc/ Meropenem Po Doxy for 7 days D/w WILLIE Longo MD Jan 07, 2019 10:26
[2019-01-07] MEDS ORDERED: LACT1CAP19 PO (10:31)
[2019-01-07] MEDS ORDERED: DOXY100C14 PO (10:31)
--- NOTE | 2019-01-07 10:34 | SNU/HH DC ---
DISCHARGE WITH HOME HEALTH DISCHARGE INFORMATION: Discharge Date: Jan 07, 2019 Condition on Discharge: Stable CODE STATUS: Code Status: Full HOME HEALTH: Face to Face: I certify this patient is under my care and that I, or a nurse practitioner or physician's medical administrative assistant working with me, had a face to face encounter that meets the physician face to face encounter requirements with this patient on 01/07/19. Medical Complications: DJD, DM [facility] For: Assess/Skilled Observatio, Diabetic Care, Medication Management, Wound Care, Wound Vac RN For Eval/Treatment: Yes Physical Therapy For: Evalulation/Treatment Occupational Therapy For: Evaluation/Treatment Home Health Aide For: Self-care Pt Meets Homebound Status: Poor coordination w/ amb., Limited distance walking POST DISCHARGE ORDERS: Activity Instructions for Disc: Activity as tolerated Weight Bearing Status after Di: As tolerated Bathing Instructions: Shower-keep dressing dry DIET AFTER DISCHARGE: ADA Wound/Incision Care: Change dressing CHECKS AFTER DISCHARGE: Checks after discharge: Check blood sugar, ac/hs FOLLOW-UP: Follow up with: Dr. William - Vascular Surgery - 2 weeks TREATMENT/EQUIPMENT ORDERS: Adaptive Equipment Issued: None CERTIFICATION STATEMENT: Certification Statement: Certification Statement: Based on the above finding, I certify that this patient is confined to the home and needs intermittent long-term care, physical therapy and/or speech therapy, or continues to need occupational therapy.~ This patient is under my care, and I have initiated the establishment of the plan of care.~ This patient will be followed by myself or a community physician who will periodically review the plan of care. Home Meds Active Scripts Doxycycline Monohydrate (DOXYCYCLINE MONOHYDRATE) 100 Mg Capsule, 1 CAP PO BID for MRSA Wound for 7 Days, #14 CAP Prov:TAYLOR COLON MD 01/07/19 Lactobacillus Rhamnosus Gg (CULTURELLE) 1 Each Cap.sprink, 1 CAP PO BID for Diarrhea for 7 Days, #14 CAP Prov:TAYLOR COLON MD 01/07/19 Hydrocodone Bit/Acetaminophen (HYDROCODONE-APAP 5-325 ) 1 Tab Tablet, 1 TAB PO PRN Q6HRS PRN for PAIN for 6 Days, #8 TAB Prov:TAYLOR COLON MD 01/06/19 Aspirin (ASPIRIN EC) 81 Mg Tablet.dr 81 MG PO DAILYWBKFT for antiplatelet for 30 Days, #30 TAB.SR Prov:NAOMIE DENIS MD 11/11/18 Atorvastatin Calcium (ATORVASTATIN CALCIUM) 40 Mg Tablet, 20 MG PO QHS, #30 1 Refill Prov:VAL GALEANO MD 04/07/16 Levothyroxine Sodium (LEVOTHYROXINE SODIUM) 112 Mcg Tablet, 112 MCG PO DAILY07, #30 1 Refill Prov:VAL GALEANO MD 04/07/16 Reported Medications Metformin Hcl (METFORMIN HCL) 1,000 Mg Tablet, 1000 MG PO BID for ANTI-DIABETIC , TAB 0 Refills 01/04/19 Canagliflozin (INVOKANA) 300 Mg Tablet, 300 MG PO DAILY for diabetes, TAB 01/04/19 Losartan Potassium (LOSARTAN POTASSIUM) 50 Mg Tablet, 25 MG PO DAILY for HYPERTENSION, TAB 01/04/19 TAYLOR COLON MD Jan 07, 2019 10:34
--- NOTE | 2019-01-07 10:38 | PDOC3 ---
Discharge Summary Visit Information Date of Admission: Jan 03, 2019 Date of Discharge: Jan 07, 2019 Admitting Diagnosis: Right BKA dehiscence Final Diagnosis MRSA wound Brief Hospital Course Allergies Allergies Coded Allergies Type Severity Reaction Last Updated Verified No Known Drug Allergies 04/05/16 No Vital Signs Vital Signs Date Time Temp Pulse Resp B/P (MAP) Pulse Ox O2 Delivery O2 Flow Rate FiO2 01/07/19 08:10 74 150/73 01/07/19 07:29 Room Air 01/07/19 07:00 98.0 16 97 98.0 Lab Results Laboratory Tests Test 01/05/19 11:06 01/05/19 16:48 01/05/19 21:02 01/05/19 22:15 Glucose (Fingerstick) 196 mg/dL (70-99) 224 mg/dL (70-99) 183 mg/dL (70-99) Vancomycin Level Trough 15.3 mcg/mL (10.0-20.0) Vancomycin Last Dose Date 01/05/19 Vancomycin Last Dose Time 1100 Test 01/06/19 05:05 01/06/19 07:58 01/06/19 11:41 01/06/19 16:55 White Blood Count 4.8 x10^3/uL (4.0-11.0) Red Blood Count 4.49 x10^6/uL (3.50-5.40) Hemoglobin 12.8 g/dL (12.0-15.5) Hematocrit 39.6 % (36.0-47.0) Mean Corpuscular Volume 88 fL (79-100) Mean Corpuscular Hemoglobin 29 pg (25-35) Mean Corpuscular Hemoglobin Concent 32 g/dL (31-37) Red Cell Distribution Width 14.7 % (11.5-14.5) Platelet Count 175 x10^3/uL (140-400) Neutrophils (%) (Auto) 46 % (31-73) Lymphocytes (%) (Auto) 44 % (24-48) Monocytes (%) (Auto) 6 % (0-9) Eosinophils (%) (Auto) 3 % (0-3) Basophils (%) (Auto) 1 % (0-3) Neutrophils # (Auto) 2.2 x10^3uL (1.8-7.7) Lymphocytes # (Auto) 2.1 x10^3/uL (1.0-4.8) Monocytes # (Auto) 0.3 x10^3/uL (0.0-1.1) Eosinophils # (Auto) 0.2 x10^3/uL (0.0-0.7) Basophils # (Auto) 0.0 x10^3/uL (0.0-0.2) Sodium Level 142 mmol/L (136-145) Potassium Level 4.3 mmol/L (3.5-5.1) Chloride Level 106 mmol/L (98-107) Carbon Dioxide Level 27 mmol/L (21-32) Anion Gap 9 (6-14) Blood Urea Nitrogen 23 mg/dL (7-20) Creatinine 0.7 mg/dL (0.6-1.0) Estimated GFR (Cockcroft-Gault) 84.5 Glucose Level 160 mg/dL (70-99) Calcium Level 8.8 mg/dL (8.5-10.1) Procalcitonin < 0.10 ng/mL (0.00-0.10) Glucose (Fingerstick) 147 mg/dL (70-99) 198 mg/dL (70-99) 198 mg/dL (70-99) Test 01/06/19 21:01 01/07/19 04:25 01/07/19 08:06 Glucose (Fingerstick) 192 mg/dL (70-99) 180 mg/dL (70-99) Creatinine 0.8 mg/dL (0.6-1.0) Estimated GFR (Cockcroft-Gault) 72.4 Laboratory Tests Test 01/06/19 11:41 01/06/19 16:55 01/06/19 21:01 01/07/19 04:25 Glucose (Fingerstick) 198 mg/dL (70-99) 198 mg/dL (70-99) 192 mg/dL (70-99) Creatinine 0.8 mg/dL (0.6-1.0) Estimated GFR (Cockcroft-Gault) 72.4 Test 01/07/19 08:06 Glucose (Fingerstick) 180 mg/dL (70-99) Brief Hospital Course 62-year-old female, with a past medical history of diabetes, hypertension and hyperlipidemia, who about a year ago sprained her ankle and returned to the hospital at the start of the year and ultimately due to poor circulation underwent a right BKA in early November and has been recovering at home with home health when her home health nurse called vascular surgeon yesterday afternoon about wound dehiscence. She denies any fever or chills, but does note she had had her leg wrapped for the past week awaiting further approval for more home health and when her nurse arrived a large amount of serosanguineous drainage was revealed. Right stump dehiscence s/p R BKA 11/08/18 - s/p rocephin and Vanc last night when I was called for her arrival. S/P I&D and wound vac placement 01/[address] Pina Feeling ok today, pain well controlled, actually has not had pain meds for over 24 hours. No BM as of yet. Blood glucose initially high, now better today. No SOB or CP. Her wound culture returns with MRSA, tetracycline sensitive Plan: F/u ID recs - will d/w ID if oral antibiotics - doxycycline vs bactrim will be appropriate Bowel regimen. IS PT/OT - likely can go home with home health, will need wound vac f/u as well. Plan for d/c as ok with vascular surgery and ID Discharge Information Condition at Discharge: Improved Follow Up: Weeks (2) Disposition/Orders: D/C to Home w/ HH Scheduled Aspirin (Aspirin Ec) 81 Mg Tablet., 81 MG PO DAILYWBKFT for antiplatelet for 30 Days, #30 Prescribed by: NAOMIE DENIS MD on 11/11/18 0925 Last Action: Continued on 01/04/191151 by TAYLOR COLON MD Atorvastatin Calcium (Atorvastatin Calcium) 40 Mg Tablet, 20 MG PO QHS, #30 Ref 1 Prescribed by: VAL GALEANO on 04/07/16 1137 Last Action: Continued on 01/04/191151 by TAYLOR COLON MD Canagliflozin (Invokana) 300 Mg Tablet, 300 MG PO DAILY for diabetes, (Reported) Entered as Reported by: RAJANI JACKSON on 01/04/19204 Last Action: New Order on 01/04/19204 by RAJANI JACKSON Doxycycline Monohydrate (Doxycycline Monohydrate) 100 Mg Capsule, 1 CAP PO BID for MRSA Wound for 7 Days, #14 Prescribed by: TAYLOR COLON MD on 01/07/19 1031 Lactobacillus Rhamnosus Gg (Culturelle) 1 Each Cap.sprink, 1 CAP PO BID for Diarrhea for 7 Days, #14 Prescribed by: TAYLOR COLON MD on 01/07/19 1031 Levothyroxine Sodium (Levothyroxine Sodium) 112 Mcg Tablet, 112 MCG PO DAILY07, #30 Ref 1 Prescribed by: VAL GALEANO on 04/07/16 1137 Last Action: Continued on 01/04/191151 by TAYLOR COLON MD Losartan Potassium (Losartan Potassium) 50 Mg Tablet, 25 MG PO DAILY for HYPERTENSION, (Reported) Entered as Reported by: RAJANI JACKSON on 01/04/19204 Last Action: Continued on 01/04/191151 by TAYLOR COLON MD Metformin Hcl (Metformin Hcl) 1,000 Mg Tablet, 1,000 MG PO BID for ANTI-DIABETIC , Ref 0 (Reported) Entered as Reported by: RAJANI JACKSON on 01/04/19204 Last Action: New Order on 01/04/19204 by RAJANI JACKSON Scheduled PRN Hydrocodone Bit/Acetaminophen (Hydrocodone-Apap 5-325 ) 1 Tab Tablet, 1 TAB PO PRN Q6HRS PRN for PAIN for 6 Days, #8 Prescribed by: TAYLOR COLON MD on 01/06/19 0856 TAYLOR COLON MD Jan 07, 2019 10:38
[2019-01-07 11:00] VITALS: BP 118/68
--- NOTE | 2019-01-07 14:30 | NUR ---
CATHY following up with pt dc plan. Pt will tentatively dc home today with home health services. Pt will be transported by family. CATHY phoned and faxed orders to [employer], phone: [phone], fax: [phone]. Pt choice and pts rights forms were signed by pt and placed in chart. Pt and pts RN have been notified. RN will notify pt's family.
--- NOTE | 2019-01-07 17:41 | NUR ---
Wound Care: Pt NPWT dressing changed and pt switched to home wound vac (see detailed assessment). Follow up clinic instructions and home care instructions provided. Pt will have [facility] assist with dressing. No other open areas noted on head to toe assessment. Pictured and measured prior to DC per protocol.
[2019-01-07] MEDS ORDERED: DOXYCYCLINE HYCLATE 100 MG TABLET PO SCH (21:00)
== END 2019-01-07 15:33 | disposition home health service (06) | DRG 502 ==
LOC: 4 NORTH 21:25
PROVIDERS: ADMIT Internal Medicine; ATTEND Internal Medicine
PROC: 0KCS0ZZ Extirpation of Matter from Right Lower Leg Muscle, Open Approach (ICD-10-PCS; 2019-01-04)
PROC: 0KBS0ZZ Excision of Right Lower Leg Muscle, Open Approach (ICD-10-PCS; principal; 2019-01-04 15:00)
DX: T87.81 Dehiscence of amputation stump (principal); I10 Essential (primary) hypertension; E11.51 Type 2 diabetes mellitus with diabetic peripheral angiopathy without gangrene; E03.9 Hypothyroidism, unspecified; E78.5 Hyperlipidemia, unspecified; Y83.5 Amputation of limb(s) as the cause of abnormal reaction of the patient, or of later complication, without mention of misadventure at the time of the procedure; F17.200 Nicotine dependence, unspecified, uncomplicated; Z83.3 Family history of diabetes mellitus; Z82.49 Family history of ischemic heart disease and other diseases of the circulatory system; Z89.511 Acquired absence of right leg below knee
CPT/HCPCS: 36415; 80048; 80202; 82565; 82962; 84145; 85025; 87040; 87071; 87075; 87186; A7015; J0696; J1100; J1644; J1815; J2001; J2185; J2270; J2405; J2704; J3010; J3370; J7040; J7050; J7120; 97535; A4461; J7030

== ENCOUNTER 2019-01-03 20:40 | Emergency (ER) | payer OTHER ==
[2018-11-11 11:00] VITALS: BP 165/65
[2019-01-04] MEDS ORDERED: CANA300T PO (02:05)
[2019-01-04] MEDS ORDERED: METF10007 PO (02:05)
[2019-01-04] MEDS ORDERED: LOSA-73 PO (02:05)
[2019-01-06] MEDS ORDERED: HYDR-2761 PO (08:56)
[2019-01-07] MEDS ORDERED: LACT1CAP19 PO (10:31)
[2019-01-07] MEDS ORDERED: DOXY100C14 PO (10:31)
== END 2019-01-03 20:41 | disposition left against medical advice (07) ==
LOC: ER 20:40
DX: M96.89 Other intraoperative and postprocedural complications and disorders of the musculoskeletal system (principal); Z53.21 Procedure and treatment not carried out due to patient leaving prior to being seen by health care provider

== ENCOUNTER 2019-01-12 13:43 | Inpatient (IN) | payer OTHER ==
[~2019-01-12] VITALS: Ht 175.3 cm; Wt 78.1 kg
[~2019-01-12 13:43] MED LIST changes: +CANA300T PO; +DOXY100C14 PO; +HYDR-2761 PO; +LOSA-73 PO; +METF10007 PO
--- NOTE | 2019-01-12 14:36 | PDOC ---
Provider Note Provider Note Vascular consult note: Pt seen with Dr. Diallo Pt is known to us, s/p right bka on 11/08/18 and debridement on 01/04/19 for infection underlying BKA incision and had wound vac placement at that time. She followed up at the wound care center today when Dr. Paniagua had concerns regarding the wound, she was directly admitted for us to evaluate. She reports minimal pain to lateral right BKA stump. Denies fevers/chills. Right BKA dressing removed, anterior wound with some sloughed tissue and about 70% granulation tissue, there is exposed bone, no undermining medially or laterally. Lateral wound with 50/50 granulation tissue vs sloughed tissue.Does not undermine. No odor, minimal surrounding erythema. No drainage. Open right BKA wound: Wound does not currently need further surgical debridement. Will Switch to veraflow vac therapy to help with sloughed tissue and consult ID for IV abx. Hopefully with this treatment we can avoid need for further surgery. We will check wound again on Thursday. Discussed with Dr. Paniagua. ANA WOO Jan 12, 2019 14:36
[2019-01-12] MEDS ORDERED: guaiFENesin ORAL 200 MG/10 ML LIQUID. PO PRN (14:45)
[2019-01-12] MEDS ORDERED: ONDANSETRON PF 4 MG/2 ML VIAL. IV PRN (14:45)
[2019-01-12] MEDS ORDERED: DEXTROSE 50% 25 GM / 50ML DISP.SYRIN. IV PRN (14:45)
[2019-01-12] MEDS ORDERED: DOCUSATE SODIUM 100 MG CAPSULE. PO PRN (14:45)
[2019-01-12] MEDS ORDERED: ACETAMINOPHEN 325 MG TABLET. PO PRN (14:45)
[2019-01-12] MEDS ORDERED: ALBUTEROL SULFATE 2.5 MG/3 ML NEBU. NEB PRN (14:45)
[2019-01-12] MEDS ORDERED: SODIUM PHOSPHATES 19/7GM 133 ML ENEMA. PR PRN (14:45)
[2019-01-12] MEDS ORDERED: HYDROcodone/APAP 5/325MG 1 TAB TABLET PO PRN (14:45)
[2019-01-12] MEDS ORDERED: LORazepam 0.5 MG TABLET PO PRN (14:45)
[2019-01-12] MEDS ORDERED: ZOLPIDEM 5 MG TABLET. PO PRN (14:45)
--- NOTE | 2019-01-12 14:56 | PDOC1 ---
History and Physical Date of Admission Date of Admission 01/12/2019 Identification/Chief Complaint Chief Complaint I WAS SENT FROM THE WOUND CLINIC Source Source: Chart review, Patient History of Present Illness History of Present Illness 62-year-old female, with a past medical history of diabetes, hypertension and hyperlipidemia, who about a year ago sprained her ankle and returned to the hospital at the start of the year and ultimately due to poor circulation underwent a right BKA in early November and has been recovering at home with home health. She recently was admitted on 01/06/2019 with similar presentation of wound dehiscence. She was treated with wound vac and she was evaluated today at the wound lcinic where she was found to have a wound with bone exposures reason why we were asked to admit for further treatment. She denies any fever or chills,no headcahe no recent infections, chest pain no palpitations. Her only complain is feeling sad due to having to be admitted again to the hospital Reassurance has been provided. Right stump dehiscence s/p R BKA 11/08/18 -.S/P I&D and wound vac placement 01/[address] Pina. She was dismissed with doxycycline orally as noted on the chart. Patient has been adherent to the treatment plan. No falls or trauma voiced. Past Medical History Cardiovascular: HTN, Hyperlipidemia Endocrine: Diabetes, Hypothyroidism Family History Family History: Hypertension Social History ALCOHOL: none Drugs: None Allergies Allergies Allergies Coded Allergies Type Severity Reaction Last Updated Verified I S O L A T I O N *CONTACT* Allergy Unknown 01/11/19 Yes No Known Medication Allergies Allergy Unknown 01/11/19 Yes ROS Review of System CONSTITUTIONAL: No fever or chills EYES: No recent changes SKIN: No rash or itching CARDIOVASCULAR: No chest pain, syncope, palpitations, or edema RESPIRATORY: No SOB or cough GASTROINTESTINAL: No nausea, vomiting or abdominal pain NEUROLOGICAL: No headaches or weakness ENDOCRINE: No cold or heat intolerance GENITOURINARY: No urgency or frequency of urination MUSCULOSKELETAL: No back pain or joint pain LYMPHATICS: No enlarged lymph nodes PSYCHIATRIC: No anxiety or depression Physical Exam Physical Exam GEN.: No apparent distress. Alert and oriented. HEENT: Head is normocephalic, atraumatic NECK: Supple. LUNGS: Clear to auscultation. HEART: RRR, S1, S2 present. Peripheral pulses intact ABDOMEN: Soft, nontender. Positive bowel sounds. EXTREMITIES: Without any cyanosis. NEUROLOGIC: Normal speech, normal tone PSYCHIATRIC: Normal affect, normal mood. SKIN: right below the knee stump with surgical dressings in place VTE Prophylaxis Ordered VTE Prophylaxis Devices: Yes VTE Pharmacological Prophylaxi: Yes Assessment/Plan Assessment/Plan Right stump dehiscence S/P right BKA on 11/08/2018 Diabetes type 2 insulin requiring History of essential hypertension history of dyslipidemia History of PAD s/p right ruperficial femoral artery'poplitela artery atherectomy and angioplasty on 10/29/2018 Plan: will consult Id for antibiotic recommendations vascular surgery consult resume home meds pain control maintain euglycemia further recommendations based on clinical course DVT prophylaxis: NAOMIE Cline MD Jan 12, 2019 14:56
[2019-01-12 15:00] VITALS: BP 139/54
[2019-01-12] MEDS: ASPIRIN ENTERIC COATED 81 MG TABLET.DR. PO SCH (15:37)
[2019-01-12] MEDS: LEVOTHYROXINE 112 MCG TABLET PO SCH (15:37)
[2019-01-12] MEDS: LOSARTAN POTASSIUM 25 MG TABLET. PO SCH (15:37)
[2019-01-12] MEDS: IPRATRPIUM/ALBUTEROL 0.5/2.5MG 3 ML NEBU. NEB SCH ×3 (16:30→23:10)
[2019-01-12] MEDS: INSULIN LISPRO 300 UNITS/3 ML INSULN.PEN. SQ SCH (17:00)
[2019-01-12 17:05] LABS: BASO % 1 % (0-3); EOS # 0.3 x10^3/uL (0.0-0.7); EOS % 4 % (0-3); HEMATOCRIT 39.1 % (36.0-47.0); HEMOGLOBIN 12.7 g/dL (12.0-15.5); LYMPH # 2.7 x10^3/uL (1.0-4.8); LYMPH % 37 % (24-48); MEAN CORPUSCULAR HEMOGLOBIN 28 pg (25-35); MEAN CORPUSCULAR HGB CONC 33 g/dL (31-37); MEAN CORPUSCULAR VOLUME 87 fL (79-100); MONO # 0.4 x10^3/uL (0.0-1.1); MONO % 6 % (0-9); NEUT # 3.7 x10^3uL (1.8-7.7); NEUT % 52 % (31-73); PLATELET COUNT 185 x10^3/uL (140-400); RED BLOOD COUNT 4.51 x10^6/uL (3.50-5.40); WHITE BLOOD COUNT 7.2 x10^3/uL (4.0-11.0)
[2019-01-12 17:26] LABS: CALCIUM 9.3 mg/dL (8.5-10.1); CREATININE 0.6 mg/dL (0.6-1.0)
[2019-01-12 19:00] VITALS: BP 117/59
[2019-01-12] MEDS: LACTOBACILLUS RHAMNOSUS GG 1 CAPSULE. PO SCH (21:06)
[2019-01-12] MEDS: ATORVASTATIN CALCIUM 20 MG TABLET PO SCH (21:06)
[2019-01-12] MEDS: INSULIN GLARGINE 300 UNITS/3 ML INSULN.PEN. SQ SCH (21:15)
[2019-01-12 23:00] VITALS: BP 169/70
[2019-01-13 03:00] VITALS: BP 128/66
[2019-01-13] MEDS: IPRATRPIUM/ALBUTEROL 0.5/2.5MG 3 ML NEBU. NEB SCH (03:36)
[2019-01-13] MEDS: LEVOTHYROXINE 112 MCG TABLET PO SCH (06:34)
[2019-01-13 07:00] VITALS: BP 141/76
[2019-01-13] MEDS: INSULIN LISPRO 300 UNITS/3 ML INSULN.PEN. SQ SCH ×3 (07:49→17:46)
[2019-01-13] MEDS: ASPIRIN ENTERIC COATED 81 MG TABLET.DR. PO SCH (08:00)
[2019-01-13] MEDS ORDERED: NON FORMULARY ITEM (Canagliflozin (Invokana) 300 MG) PO SCH (09:00)
--- NOTE | 2019-01-13 09:38 | PDOC ---
Provider Note Provider Note S: Pt is s/p right bka on 11/08/18 and further debridement for incisional dehiscence on 01/04/19 and wound vac placement at that time. She followed up at the wound care center yesterday when Dr. Paniagua had concerns regarding the wound , she was directly admitted for us to evaluate. She reports minimal pain to lateral right BKA stump. Denies fevers/chills. Veraflow wound vac was placed yesterday. Pt has good appetite and no further complaints. IV abx have not been started yet, ID will see the patient today. O: VSS, afebrile Alert, oriented, in no apparent distress Veraflow vac in place right BKA stump with good suction, minimal surrounding erythema. Minimal drainage in vac chamber. (see yesterdays note for description of wound) A/P: Infected BKA incision s/p debridement and vac placement on 01/04/19, with exposed bone - We will evaluate the wound again tomorrow with vac change, as of yesterday did not require further surgical debridement. - Start IV abx today per ID - Continue veraflow vac therapy while inpt, vac to be changed 3x week. Pt will need home (standard) vac upon discharge, will consult SS. - Will have PT work with patient. - Medical management of DM, HTN, hypothyroidism per primary. ANA WOO Jan 13, 2019 09:38
[2019-01-13] MEDS: LACTOBACILLUS RHAMNOSUS GG 1 CAPSULE. PO SCH ×2 (09:46→20:47)
[2019-01-13] MEDS: LOSARTAN POTASSIUM 25 MG TABLET. PO SCH (09:48)
--- NOTE | 2019-01-13 10:47 | PDOC ---
Infectious Disease Note Subjective Subjective The patient is a pleasant 63-year-old female with history of diabetes and tobacco abuse, who was admitted back in 10/2018. She was found to have peripheral arterial disease and underwent right superficial femoral artery and popliteal artery atherectomy and angioplasty on 10/29/2018. She was found to have a right fifth metatarsal base fracture and also had an infected diabetic wound with osteomyelitis on the right MT joint. Initially, she underwent an open ray amputation, but the wound progressed throughout the foot and it was not salvageable and she underwent a right BKA on 11/08/2018. At the time of presentation, she had Strep oralis bacteremia on 10/22/2018. Wounds also grew out Klebsiella oxytoca as well as penicillin sensitive Enterococcus faecalis. Subsequently, was discharged to [facility] where she had done rehab. She had gotten a stump protector. Pt has been recently discharged from [facility], returned with now another wound on stump , that is to the bone. ROS ROS no n/v/d/sob/fever/trauma PMH reviewed Allergies, NKDA Vital Sign Vital Signs Vital Signs Date Time Temp Pulse Resp B/P (MAP) Pulse Ox O2 Delivery O2 Flow Rate FiO2 01/13/19 09:48 77 141/76 01/13/19 07:00 98.3 17 97 Room Air 98.3 Physical Exam PHYSICAL EXAM CONSTITUTIONAL: She is very pleasant, cooperative, in no acute distress. comfortable HEENT: Pupils equal and reactive. Normal conjunctivae. Oral cavity, pharynx is clear. NECK: Supple, no JVD. LUNGS: Clear to auscultation bilaterally. HEART: S1, S2. ABDOMEN: Soft, nontender, nondistended, positive bowel sounds. EXTREMITIES: No clubbing, cyanosis. Her right stump is now dressed with a wound vac and looks clean,, two wounds to bone SKIN: Warm to touch without rash. NEUROLOGIC: She is nonfocal and appropriate. PSYCHIATRIC: Affect is pleasant Labs Lab Laboratory Tests Test 01/12/19 15:41 01/12/19 16:53 01/12/19 20:51 01/13/19 07:31 Glucose (Fingerstick) 109 mg/dL (70-99) 130 mg/dL (70-99) 128 mg/dL (70-99) White Blood Count 7.2 x10^3/uL (4.0-11.0) Red Blood Count 4.51 x10^6/uL (3.50-5.40) Hemoglobin 12.7 g/dL (12.0-15.5) Hematocrit 39.1 % (36.0-47.0) Mean Corpuscular Volume 87 fL (79-100) Mean Corpuscular Hemoglobin 28 pg (25-35) Mean Corpuscular Hemoglobin Concent 33 g/dL (31-37) Red Cell Distribution Width 15.0 % (11.5-14.5) Platelet Count 185 x10^3/uL (140-400) Neutrophils (%) (Auto) 52 % (31-73) Lymphocytes (%) (Auto) 37 % (24-48) Monocytes (%) (Auto) 6 % (0-9) Eosinophils (%) (Auto) 4 % (0-3) Basophils (%) (Auto) 1 % (0-3) Neutrophils # (Auto) 3.7 x10^3uL (1.8-7.7) Lymphocytes # (Auto) 2.7 x10^3/uL (1.0-4.8) Monocytes # (Auto) 0.4 x10^3/uL (0.0-1.1) Eosinophils # (Auto) 0.3 x10^3/uL (0.0-0.7) Basophils # (Auto) 0.0 x10^3/uL (0.0-0.2) Sodium Level 139 mmol/L (136-145) Potassium Level 4.0 mmol/L (3.5-5.1) Chloride Level 103 mmol/L (98-107) Carbon Dioxide Level 24 mmol/L (21-32) Anion Gap 12 (6-14) Blood Urea Nitrogen 23 mg/dL (7-20) Creatinine 0.6 mg/dL (0.6-1.0) Estimated GFR (Cockcroft-Gault) 101.0 Glucose Level 115 mg/dL (70-99) Calcium Level 9.3 mg/dL (8.5-10.1) Micro ANAEROBIC-AEROBIC CULTURE Final Final report MRSA ISOLATED, CALLED AND FAXED TO DR. NESS'S OFFICE 01/10/19 DW MT * This is a corrected result. * A prior result that was reported as final has been changed. ANAEROBIC RES 1 Final Comment No anaerobic growth in 72 hours. AEROBIC CULT Final Final report AEROBIC RES 1 Final Comment Methicillin - resistant Staphylococcus aureus 4+ Based on resistance to oxacillin this isolate would be resistant to all currently available beta-lactam antimicrobial agents, with the exception of the newer cephalosporins with anti-MRSA activity, such as Ceftaroline ANTIMICROBIAL SUSCEPTIBILITY Final Comment S = Susceptible; I = Intermediate; R = Resistant P = Positive; N = Negative MICS are expressed in micrograms per mL Antibiotic RSLT#1 RSLT#2 RSLT#3 RSLT#4 Ciprofloxacin R>=8 Clindamycin R>=8 Erythromycin R>=8 CONTINUED ON NEXT PAGE RUN DATE: 01/12/19 PAGE 2 RUN TIME: [address] [facility] [address] [place] [address] Ryan Reinoso M.D., Test Lead SPEC: [id number] PATIENT: CHAVO GAYLE [id number] ( Continued) Procedure Result ANTIMICROBIAL SUSCEPTIBILITY Final (continued) Gentamicin S<=0.5 Levofloxacin R>=8 Linezolid S =1 Oxacillin R>=4 Penicillin R>=0.5 Rifampin S<=0.5 Tetracycline S<=1 Trimethoprim/Sulfa S<=10 Vancomycin S<=0.5 GRAM STAIN Final Final report GRAM STAIN RES 1 Final Comment No white blood cells seen. GRAM STAIN RES 2 Final Comment Few gram positive cocci Performed at: - [facility] [address] [facility] [address], [place], [place] [id number] Photo Mask Processor: JEFFREY Hamilton MD, Phone: [phone] Objective Assessment 1. Right stump dehiscence status post right below knee amputation on 11/08/2018 two wounds now , to bone 2. Peripheral arterial disease, status post atherectomy and angioplasty. 3. History of Strep oralis bacteremia. 4. History of Klebsiella and Enterococcus as mentioned above. 5. Type 2 diabetes. 6. Tobacco abuse and tobaccoism. 7. Hypertension. 8. Hyperlipidemia. Plan Plan of Care vanc and zosyn supportive care wound vac, will look at the wound tomorrow when changed will need manager long term care iv antibiotics picc d/w vascular surgery DAVID NESS MD Jan 13, 2019 10:46
[2019-01-13 11:00] VITALS: BP 153/72
[2019-01-13] MEDS ORDERED: VANCOMYCIN PER PHARMACY MC PRN (11:00)
[2019-01-13] MEDS ORDERED: VANCOMYCIN 1.75 GM in IV NORMAL SALINE 500ML BAG 500 ML IV ONE (11:00)
[2019-01-13] MEDS ORDERED: IPRATRPIUM/ALBUTEROL 0.5/2.5MG 3 ML NEBU. NEB PRN (12:30)
--- NOTE | 2019-01-13 12:38 | PDOC ---
PROGRESS NOTES Chief Complaint Chief Complaint popliteal artery atherectomy and angioplasty on 10/29/2018. osteomyelitis on the right MT joint. Initially, right BKA on 11/08/2018. Strep oralis bacteremia on 10/22/2018. Klebsiella oxytoca as well as penicillin sensitive Enterococcus wounds Sepsis, indwelling wound vac RT. History of Present Illness History of Present Illness HAd A long discussion with her today as I was updating her about the plan- PICC line, home health, wound VAC. But she adamantly would prefer to go to care home home to get her wound care and IV antibiotics I did discuss with social work. She will discussed with infectious disease Plan: wound care wound VAC, IV antibody per ID very well-known to them Discussed with social work-we'll aim for SNU i.e. [facility] on IV antibiotics PICC line Vitals Vitals Vital Signs Date Time Temp Pulse Resp B/P (MAP) Pulse Ox O2 Delivery O2 Flow Rate FiO2 01/13/19 11:00 98.2 74 18 153/72 (99) 97 Room Air 98.2 Physical Exam Physical Exam CONSTITUTIONAL: She is very pleasant, cooperative, in no acute distress. comfortable HEENT: Pupils equal and reactive. Normal conjunctivae. Oral cavity, pharynx is clear. NECK: Supple, no JVD. LUNGS: Clear to auscultation bilaterally. HEART: S1, S2. ABDOMEN: Soft, nontender, nondistended, positive bowel sounds. EXTREMITIES: No clubbing, cyanosis. Her right stump is now dressed with a wound vac and looks clean,, two wounds to bone SKIN: Warm to touch without rash. NEUROLOGIC: She is nonfocal and appropriate. PSYCHIATRIC: Affect is pleasant General: Alert, Oriented X3, Cooperative, No acute distress Heart: Regular rate, Normal S1, Normal S2, No murmurs Lungs: Clear, Other Abdomen: Normal bowel sounds, Soft, No tenderness Extremities: No clubbing, No cyanosis, No edema, Normal pulses Skin: No rashes, No breakdown, No significant lesion Labs LABS Laboratory Tests Test 01/12/19 15:41 01/12/19 16:53 01/12/19 20:51 01/13/19 07:31 Glucose (Fingerstick) 109 mg/dL (70-99) 130 mg/dL (70-99) 128 mg/dL (70-99) White Blood Count 7.2 x10^3/uL (4.0-11.0) Red Blood Count 4.51 x10^6/uL (3.50-5.40) Hemoglobin 12.7 g/dL (12.0-15.5) Hematocrit 39.1 % (36.0-47.0) Mean Corpuscular Volume 87 fL (79-100) Mean Corpuscular Hemoglobin 28 pg (25-35) Mean Corpuscular Hemoglobin Concent 33 g/dL (31-37) Red Cell Distribution Width 15.0 % (11.5-14.5) Platelet Count 185 x10^3/uL (140-400) Neutrophils (%) (Auto) 52 % (31-73) Lymphocytes (%) (Auto) 37 % (24-48) Monocytes (%) (Auto) 6 % (0-9) Eosinophils (%) (Auto) 4 % (0-3) Basophils (%) (Auto) 1 % (0-3) Neutrophils # (Auto) 3.7 x10^3uL (1.8-7.7) Lymphocytes # (Auto) 2.7 x10^3/uL (1.0-4.8) Monocytes # (Auto) 0.4 x10^3/uL (0.0-1.1) Eosinophils # (Auto) 0.3 x10^3/uL (0.0-0.7) Basophils # (Auto) 0.0 x10^3/uL (0.0-0.2) Sodium Level 139 mmol/L (136-145) Potassium Level 4.0 mmol/L (3.5-5.1) Chloride Level 103 mmol/L (98-107) Carbon Dioxide Level 24 mmol/L (21-32) Anion Gap 12 (6-14) Blood Urea Nitrogen 23 mg/dL (7-20) Creatinine 0.6 mg/dL (0.6-1.0) Estimated GFR (Cockcroft-Gault) 101.0 Glucose Level 115 mg/dL (70-99) Calcium Level 9.3 mg/dL (8.5-10.1) Test 01/13/19 11:14 Glucose (Fingerstick) 154 mg/dL (70-99) Review of Systems Review of Systems A 14 point ROS was completed with the following noted as positive: Other systems reviewed and negative. \CONSTITUTIONAL: No fever or chills EYES: No recent changes SKIN: No rash or itching CARDIOVASCULAR: No chest pain, syncope, palpitations, or edema RESPIRATORY: No SOB or cough GASTROINTESTINAL: No nausea, vomiting or abdominal pain NEUROLOGICAL: No headaches or weakness ENDOCRINE: No cold or heat intolerance GENITOURINARY: No urgency or frequency of urination MUSCULOSKELETAL: No back pain or joint pain LYMPHATICS: No enlarged lymph nodes PSYCHIATRIC: No anxiety or depression Comment Review of Relevant I have reviewed the following items nikole (where applicable) has been applied. Labs Laboratory Tests Test 01/12/19 15:41 01/12/19 16:53 01/12/19 20:51 01/13/19 07:31 Glucose (Fingerstick) 109 mg/dL (70-99) 130 mg/dL (70-99) 128 mg/dL (70-99) White Blood Count 7.2 x10^3/uL (4.0-11.0) Red Blood Count 4.51 x10^6/uL (3.50-5.40) Hemoglobin 12.7 g/dL (12.0-15.5) Hematocrit 39.1 % (36.0-47.0) Mean Corpuscular Volume 87 fL (79-100) Mean Corpuscular Hemoglobin 28 pg (25-35) Mean Corpuscular Hemoglobin Concent 33 g/dL (31-37) Red Cell Distribution Width 15.0 % (11.5-14.5) Platelet Count 185 x10^3/uL (140-400) Neutrophils (%) (Auto) 52 % (31-73) Lymphocytes (%) (Auto) 37 % (24-48) Monocytes (%) (Auto) 6 % (0-9) Eosinophils (%) (Auto) 4 % (0-3) Basophils (%) (Auto) 1 % (0-3) Neutrophils # (Auto) 3.7 x10^3uL (1.8-7.7) Lymphocytes # (Auto) 2.7 x10^3/uL (1.0-4.8) Monocytes # (Auto) 0.4 x10^3/uL (0.0-1.1) Eosinophils # (Auto) 0.3 x10^3/uL (0.0-0.7) Basophils # (Auto) 0.0 x10^3/uL (0.0-0.2) Sodium Level 139 mmol/L (136-145) Potassium Level 4.0 mmol/L (3.5-5.1) Chloride Level 103 mmol/L (98-107) Carbon Dioxide Level 24 mmol/L (21-32) Anion Gap 12 (6-14) Blood Urea Nitrogen 23 mg/dL (7-20) Creatinine 0.6 mg/dL (0.6-1.0) Estimated GFR (Cockcroft-Gault) 101.0 Glucose Level 115 mg/dL (70-99) Calcium Level 9.3 mg/dL (8.5-10.1) Test 01/13/19 11:14 Glucose (Fingerstick) 154 mg/dL (70-99) Laboratory Tests Test 01/12/19 15:41 01/12/19 16:53 01/12/19 20:51 01/13/19 07:31 Glucose (Fingerstick) 109 mg/dL (70-99) 130 mg/dL (70-99) 128 mg/dL (70-99) White Blood Count 7.2 x10^3/uL (4.0-11.0) Red Blood Count 4.51 x10^6/uL (3.50-5.40) Hemoglobin 12.7 g/dL (12.0-15.5) Hematocrit 39.1 % (36.0-47.0) Mean Corpuscular Volume 87 fL (79-100) Mean Corpuscular Hemoglobin 28 pg (25-35) Mean Corpuscular Hemoglobin Concent 33 g/dL (31-37) Red Cell Distribution Width 15.0 % (11.5-14.5) Platelet Count 185 x10^3/uL (140-400) Neutrophils (%) (Auto) 52 % (31-73) Lymphocytes (%) (Auto) 37 % (24-48) Monocytes (%) (Auto) 6 % (0-9) Eosinophils (%) (Auto) 4 % (0-3) Basophils (%) (Auto) 1 % (0-3) Neutrophils # (Auto) 3.7 x10^3uL (1.8-7.7) Lymphocytes # (Auto) 2.7 x10^3/uL (1.0-4.8) Monocytes # (Auto) 0.4 x10^3/uL (0.0-1.1) Eosinophils # (Auto) 0.3 x10^3/uL (0.0-0.7) Basophils # (Auto) 0.0 x10^3/uL (0.0-0.2) Sodium Level 139 mmol/L (136-145) Potassium Level 4.0 mmol/L (3.5-5.1) Chloride Level 103 mmol/L (98-107) Carbon Dioxide Level 24 mmol/L (21-32) Anion Gap 12 (6-14) Blood Urea Nitrogen 23 mg/dL (7-20) Creatinine 0.6 mg/dL (0.6-1.0) Estimated GFR (Cockcroft-Gault) 101.0 Glucose Level 115 mg/dL (70-99) Calcium Level 9.3 mg/dL (8.5-10.1) Test 01/13/19 11:14 Glucose (Fingerstick) 154 mg/dL (70-99) Medications Current Medications Ondansetron HCl (Zofran) 4 mg PRN Q4HRS PRN IV NAUSEA/VOMITING; Start 01/12/19 at 14:45 Zolpidem Tartrate (Ambien) 5 mg PRN QHS PRN PO INSOMNIA; Start 01/12/19 at 14: 45 Acetaminophen (Tylenol) 650 mg PRN Q4HRS PRN PO TEMP OVER 100.4F OR MILD PAIN; Start 01/12/19 at 14:45 Sodium Monofluorophosphate (Fleet Adult) 133 ml PRN DAILY PRN AL CONSTIPATION; Start 01/12/19 at 14:45 Docusate Sodium (Colace) 100 mg PRN BID PRN PO CONSTIPATION; Start 01/12/19 at 14:45 Albuterol Sulfate (Ventolin Neb Soln) 2.5 mg PRN Q4HRS PRN NEB SHORTNESS OF BREATH; Start 01/12/19 at 14:45; Status Cancel Albuterol/ Ipratropium (Duoneb) 3 ml Q4HRS NEB Last administered on 01/12/19at 16:30; Start 01/12/19 at 16:00; Stop 01/13/19 at 12:15; Status DC Guaifenesin (Robitussin) 200 mg PRN Q4HRS PRN PO COUGH; Start 01/12/19 at 14:45 Lorazepam (Ativan) 0.5 mg PRN Q4HRS PRN PO ANXIETY / AGITATION; Start 01/12/19 at 14:45 Insulin Glargine (Lantus) 12 units QHS SQ Last administered on 01/12/19at 21:15 ; Start 01/12/19 at 21:00 Insulin Human Lispro (HumaLOG) 0-7 UNITS TIDWMEALS SQ ; Start 01/12/19 at 17:00 Dextrose (Dextrose 50%-Water Syringe) 12.5 gm PRN Q15MIN PRN IV SEE COMMENTS; Start 01/12/19 at 14:45 Aspirin (Ecotrin) 81 mg DAILYWBKFT PO Last administered on 01/13/19at 08:00; Start 01/12/19 at 16:00 Atorvastatin Calcium (Lipitor) 20 mg QHS PO Last administered on 01/12/19at 21: 06; Start 01/12/19 at 21:00 Acetaminophen/ Hydrocodone Bitart (Lortab 5/325) 1 tab PRN Q6HRS PRN PO MOD- SEVERE PAIN; Start 01/12/19 at 14:45 Lactobacillus Rhamnosus (Culturelle) 1 cap BID PO Last administered on at 09:46; Start 01/12/19 at 21:00 Levothyroxine Sodium (Synthroid) 112 mcg DAILY07 PO Last administered on at 06:34; Start 01/12/19 at 16:00 Losartan Potassium (Cozaar) 25 mg DAILY PO Last administered on 01/13/19at 09:48 ; Start 01/12/19 at 16:00 Non-Formulary Medication (Canagliflozin (Invokana)) 300 mg DAILY PO ; Start 08/23 at 09:00; Status UNV Vancomycin HCl (Vanco Per Pharmacy) 1 each PRN DAILY PRN MC SEE COMMENTS; Start 01/13/19 at 11:00 Piperacillin Sod/ Tazobactam Sod 3.375 gm/Sodium Chloride 50 ml @ 100 mls/hr Q6HRS IV ; Start 01/13/19 at 12:00 Vancomycin HCl 1.75 gm/Sodium Chloride 500 ml @ 250 mls/hr 1X ONCE IV ; Start 01/13/19 at 11:00; Stop 01/13/19 at 12:59 Albuterol/ Ipratropium (Duoneb) 3 ml PRN Q4HRS PRN NEB SHORTNESS OF BREATH; Start 01/13/19 at 12:30 Active Scripts Active Doxycycline Monohydrate 100 Mg Capsule 1 Cap PO BID 7 Days Culturelle (Lactobacillus Rhamnosus Gg) 1 Each Cap.sprink 1 Cap PO BID 7 Days Hydrocodone-Apap 5-325 (Hydrocodone Bit/Acetaminophen) 1 Tab Tablet 1 Tab PO PRN Q6HRS PRN 6 Days Aspirin Ec (Aspirin) 81 Mg Tablet.dr 81 Mg PO DAILYWBKFT 30 Days Atorvastatin Calcium 40 Mg Tablet 20 Mg PO QHS Levothyroxine Sodium 112 Mcg Tablet 112 Mcg PO DAILY07 Reported Metformin Hcl 1,000 Mg Tablet 1,000 Mg PO BID Invokana (Canagliflozin) 300 Mg Tablet 300 Mg PO DAILY Losartan Potassium 50 Mg Tablet 25 Mg PO DAILY Vitals/I & O Vital Sign - Last 24 Hours 01/12/19 01/12/19 01/12/19 01/12/19 15:00 17:33 19:00 20:00 Temp 98.1 98.0 98.1 98.0 Pulse 83 94 Resp 17 16 B/P (MAP) 139/54 (82) 117/59 (78) Pulse Ox 97 98 O2 Delivery Room Air Room Air Room Air 01/12/19 01/13/19 01/13/19 01/13/19 23:00 03:00 07:00 08:00 Temp 97.8 98.1 98.3 97.8 98.1 98.3 Pulse 86 78 77 Resp 14 15 17 B/P (MAP) 169/70 (103) 128/66 (86) 141/76 (97) Pulse Ox 96 97 97 O2 Delivery Room Air Room Air Room Air Room Air 01/13/19 01/13/19 09:48 11:00 Temp 98.2 98.2 Pulse 77 74 Resp 18 B/P (MAP) 141/76 153/72 (99) Pulse Ox 97 O2 Delivery Room Air Intake and Output 01/12/19 01/12/19 01/13/19 15:00 23:00 07:00 Intake Total 180 ml 350 ml Balance 180 ml 350 ml BRADEN PAREDES MD Jan 13, 2019 12:38
[2019-01-13] MEDS: PIPERACILLIN/TAZOBACTAM 3.375 GM in IV NORMAL SALINE 50ML 50 ML IV SCH ×2 (13:30→17:41)
[2019-01-13 15:00] VITALS: BP 119/60
[2019-01-13 19:00] VITALS: BP 152/63
[2019-01-13] MEDS: ATORVASTATIN CALCIUM 20 MG TABLET PO SCH (20:47)
[2019-01-13] MEDS: INSULIN GLARGINE 300 UNITS/3 ML INSULN.PEN. SQ SCH (20:52)
[2019-01-13 23:00] VITALS: BP 129/64
[2019-01-14] MEDS: PIPERACILLIN/TAZOBACTAM 3.375 GM in IV NORMAL SALINE 50ML 50 ML IV SCH ×2 (00:13→06:10)
[2019-01-14 03:00] VITALS: BP 137/65
[2019-01-14] MEDS ORDERED: VANCOMYCIN 750 MG in IV NORMAL SALINE 250ML 250 ML IV SCH (03:30)
[2019-01-14 04:32] LABS: CREATININE 0.8 mg/dL (0.6-1.0); GFR 72.4
[2019-01-14] MEDS: LEVOTHYROXINE 112 MCG TABLET PO SCH (06:10)
[2019-01-14 07:00] VITALS: BP 115/64
--- NOTE | 2019-01-14 07:44 | RAD ---
CHEST AP ONLY Clinical Indication: line placement Comparison: None. Findings: Right-sided PICC terminates overlying the superior cavoatrial junction. The cardiomediastinal silhouette is normal. Lungs are clear. There is no pneumothorax. No pleural effusion is appreciated. No acute bone abnormality. IMPRESSION: No acute cardiopulmonary process. Right-sided PICC is in place on basis of frontal view provided. Electronically signed by: Jet Lance MD (01/14/2019 7:41 AM) [facility]
[2019-01-14] MEDS: INSULIN LISPRO 300 UNITS/3 ML INSULN.PEN. SQ SCH ×2 (08:00→12:00)
[2019-01-14] MEDS: LACTOBACILLUS RHAMNOSUS GG 1 CAPSULE. PO SCH (08:47)
[2019-01-14] MEDS: ASPIRIN ENTERIC COATED 81 MG TABLET.DR. PO SCH (08:47)
[2019-01-14] MEDS: LOSARTAN POTASSIUM 25 MG TABLET. PO SCH (08:47)
[2019-01-14 11:00] VITALS: BP 128/55
--- NOTE | 2019-01-14 11:24 | PDOC3 ---
Discharge Summary Visit Information Date of Admission: Jan 12, 2019 Date of Discharge: Jan 14, 2019 Admitting Diagnosis Comment: popliteal artery atherectomy and angioplasty on 10/29/2018. osteomyelitis on the right MT joint. Initially, right BKA on 11/08/2018. Strep oralis bacteremia on 10/22/2018. Klebsiella oxytoca as well as penicillin sensitive Enterococcus wounds Sepsis, indwelling wound vac RT. Brief Hospital Course Allergies Allergies Coded Allergies Type Severity Reaction Last Updated Verified I S O L A T I O N *CONTACT* Allergy Unknown 01/11/19 Yes No Known Medication Allergies Allergy Unknown 01/11/19 Yes Vital Signs Vital Signs Date Time Temp Pulse Resp B/P (MAP) Pulse Ox O2 Delivery O2 Flow Rate FiO2 01/14/19 08:47 67 115/64 01/14/19 08:00 Room Air 01/14/19 07:00 98.2 16 98 98.2 Lab Results Laboratory Tests Test 01/12/19 15:41 01/12/19 16:53 01/12/19 20:51 01/13/19 07:31 Glucose (Fingerstick) 109 mg/dL (70-99) 130 mg/dL (70-99) 128 mg/dL (70-99) White Blood Count 7.2 x10^3/uL (4.0-11.0) Red Blood Count 4.51 x10^6/uL (3.50-5.40) Hemoglobin 12.7 g/dL (12.0-15.5) Hematocrit 39.1 % (36.0-47.0) Mean Corpuscular Volume 87 fL (79-100) Mean Corpuscular Hemoglobin 28 pg (25-35) Mean Corpuscular Hemoglobin Concent 33 g/dL (31-37) Red Cell Distribution Width 15.0 % (11.5-14.5) Platelet Count 185 x10^3/uL (140-400) Neutrophils (%) (Auto) 52 % (31-73) Lymphocytes (%) (Auto) 37 % (24-48) Monocytes (%) (Auto) 6 % (0-9) Eosinophils (%) (Auto) 4 % (0-3) Basophils (%) (Auto) 1 % (0-3) Neutrophils # (Auto) 3.7 x10^3uL (1.8-7.7) Lymphocytes # (Auto) 2.7 x10^3/uL (1.0-4.8) Monocytes # (Auto) 0.4 x10^3/uL (0.0-1.1) Eosinophils # (Auto) 0.3 x10^3/uL (0.0-0.7) Basophils # (Auto) 0.0 x10^3/uL (0.0-0.2) Sodium Level 139 mmol/L (136-145) Potassium Level 4.0 mmol/L (3.5-5.1) Chloride Level 103 mmol/L (98-107) Carbon Dioxide Level 24 mmol/L (21-32) Anion Gap 12 (6-14) Blood Urea Nitrogen 23 mg/dL (7-20) Creatinine 0.6 mg/dL (0.6-1.0) Estimated GFR (Cockcroft-Gault) 101.0 Glucose Level 115 mg/dL (70-99) Calcium Level 9.3 mg/dL (8.5-10.1) Test 01/13/19 11:14 01/13/19 16:36 01/13/19 20:41 01/14/19 03:45 Glucose (Fingerstick) 154 mg/dL (70-99) 164 mg/dL (70-99) 137 mg/dL (70-99) Creatinine 0.8 mg/dL (0.6-1.0) Estimated GFR (Cockcroft-Gault) 72.4 Test 01/14/19 07:41 Glucose (Fingerstick) 120 mg/dL (70-99) Laboratory Tests Test 01/13/19 16:36 01/13/19 20:41 01/14/19 03:45 01/14/19 07:41 Glucose (Fingerstick) 164 mg/dL (70-99) 137 mg/dL (70-99) 120 mg/dL (70-99) Creatinine 0.8 mg/dL (0.6-1.0) Estimated GFR (Cockcroft-Gault) 72.4 Brief Hospital Course Ms. Trujillo is a 63 old white female who has a long, complicated history with that right leg. Please refer to my above final diagnosis. Very well-known to Ortho and ID. She came in because of right stump infection and pain. We have arranged for PICC line and IV antibiotics wound long term health. She is comfortable with that. Consults performed Ortho and ID Procedures performed none, just wound VAC and PICC line insertion DC time less than 30 minutes, she did not need any pain meds from me FF up ID as instrcuted Discharge Information Condition at Discharge: Improved, Stable Follow Up: Weeks (ID as instrcuted) Disposition/Orders: D/C to Home w/ HH Scheduled Aspirin (Aspirin Ec) 81 Mg Tablet., 81 MG PO DAILYWBKFT for antiplatelet for 30 Days, #30 Prescribed by: NAOMIE DENIS MD on 11/11/18924 Last Action: Continued on 01/12/191446 by NAOMIE DENIS MD Atorvastatin Calcium (Atorvastatin Calcium) 40 Mg Tablet, 20 MG PO QHS, #30 Ref 1 Prescribed by: VAL GALEANO on 04/07/161136 Last Action: Continued on 01/12/191446 by NAOMIE DENIS MD Canagliflozin (Invokana) 300 Mg Tablet, 300 MG PO DAILY for diabetes, (Reported) Entered as Reported by: RAJANI JACKSON on 01/04/19204 Last Action: Converted on 01/12/191447 by NAOMIE DENIS MD Doxycycline Monohydrate (Doxycycline Monohydrate) 100 Mg Capsule, 1 CAP PO BID for MRSA Wound for 7 Days, #14 Prescribed by: TAYLOR COLON MD on 01/07/19 103 Last Action: HELD on 01/12/191446 by NAOMIE DENIS MD Lactobacillus Rhamnosus Gg (Culturelle) 1 Each Cap.sprink, 1 CAP PO BID for Diarrhea for 7 Days, #14 Prescribed by: TAYLOR COLON MD on 01/07/19 103 Last Action: Continued on 01/12/191447 by NAOMIE DENIS MD Levothyroxine Sodium (Levothyroxine Sodium) 112 Mcg Tablet, 112 MCG PO DAILY07, #30 Ref 1 Prescribed by: VAL GALEANO on 04/07/161136 Last Action: Continued on 01/12/191447 by NAOMIE DENIS MD Losartan Potassium (Losartan Potassium) 50 Mg Tablet, 25 MG PO DAILY for HYPERTENSION, (Reported) Entered as Reported by: RAJANI JACKSON on 01/04/19204 Last Action: Continued on 01/12/191447 by NAOMIE DENIS MD Metformin Hcl (Metformin Hcl) 1,000 Mg Tablet, 1,000 MG PO BID for ANTI-DIABETIC , Ref 0 (Reported) Entered as Reported by: RAJANI JACKSON on 01/04/19204 Last Action: HELD on 01/12/191446 by NAOMIE DENIS MD Scheduled PRN Hydrocodone Bit/Acetaminophen (Hydrocodone-Apap 5-325 ) 1 Tab Tablet, 1 TAB PO PRN Q6HRS PRN for PAIN for 6 Days, #8 Prescribed by: TAYLOR COLON MD on 01/06/19 0856 Last Action: Continued on 01/12/191446 by MD REGGIE HUI CHERRIE Y MD Jan 14, 2019 11:24
--- NOTE | 2019-01-14 12:02 | PDOC ---
Infectious Disease Note Subjective Subjective feeling good ROS ROS no n/v/d/sob Vital Sign Vital Signs Vital Signs Date Time Temp Pulse Resp B/P (MAP) Pulse Ox O2 Delivery O2 Flow Rate FiO2 01/14/19 08:47 67 115/64 01/14/19 08:00 Room Air 01/14/19 07:00 98.2 16 98 98.2 Physical Exam PHYSICAL EXAM CONSTITUTIONAL: She is very pleasant, cooperative, in no acute distress. comfortable HEENT: Pupils equal and reactive. Normal conjunctivae. Oral cavity, pharynx is clear. NECK: Supple, no JVD. LUNGS: Clear to auscultation bilaterally. HEART: S1, S2. ABDOMEN: Soft, nontender, nondistended, positive bowel sounds. EXTREMITIES: No clubbing, cyanosis. Her right stump is now dressed with a wound vac and looks clean,, two wounds to bone,,, rt lateral is much better, no bone exposed, the inferior has bone palpable SKIN: Warm to touch without rash. NEUROLOGIC: She is nonfocal and appropriate. PSYCHIATRIC: Affect is pleasant Labs Lab Laboratory Tests Test 01/13/19 16:36 01/13/19 20:41 01/14/19 03:45 01/14/19 07:41 Glucose (Fingerstick) 164 mg/dL (70-99) 137 mg/dL (70-99) 120 mg/dL (70-99) Creatinine 0.8 mg/dL (0.6-1.0) Estimated GFR (Cockcroft-Gault) 72.4 Test 01/14/19 11:29 Glucose (Fingerstick) 146 mg/dL (70-99) Micro ANAEROBIC-AEROBIC CULTURE Final Final report MRSA ISOLATED, CALLED AND FAXED TO DR. NESS'S OFFICE 01/10/19 DW MT * This is a corrected result. * A prior result that was reported as final has been changed. ANAEROBIC RES 1 Final Comment No anaerobic growth in 72 hours. AEROBIC CULT Final Final report AEROBIC RES 1 Final Comment Methicillin - resistant Staphylococcus aureus 4+ Based on resistance to oxacillin this isolate would be resistant to all currently available beta-lactam antimicrobial agents, with the exception of the newer cephalosporins with anti-MRSA activity, such as Ceftaroline ANTIMICROBIAL SUSCEPTIBILITY Final Comment S = Susceptible; I = Intermediate; R = Resistant P = Positive; N = Negative MICS are expressed in micrograms per mL Antibiotic RSLT#1 RSLT#2 RSLT#3 RSLT#4 Ciprofloxacin R>=8 Clindamycin R>=8 Erythromycin R>=8 CONTINUED ON NEXT PAGE RUN DATE: 01/12/19 PAGE 2 RUN TIME: 110 [facility] [address] [place] [address] Ryan Reinoso M.D., Drug Department Worker SPEC: [id number] PATIENT: CHAVO GAYLE [id number] ( Continued) Procedure Result ANTIMICROBIAL SUSCEPTIBILITY Final (continued) Gentamicin S<=0.5 Levofloxacin R>=8 Linezolid S =1 Oxacillin R>=4 Penicillin R>=0.5 Rifampin S<=0.5 Tetracycline S<=1 Trimethoprim/Sulfa S<=10 Vancomycin S<=0.5 GRAM STAIN Final Final report GRAM STAIN RES 1 Final Comment No white blood cells seen. GRAM STAIN RES 2 Final Comment Few gram positive cocci Performed at: DA - [facility] [address], [place], [place] [id number] [employer] Shift Lead: JEFFREY Hamilton MD, Phone: [phone] Objective Assessment 1. Right stump dehiscence status post right below knee amputation on 11/08/2018 two wounds now , to bone 2. Peripheral arterial disease, status post atherectomy and angioplasty. 3. History of Strep oralis bacteremia. 4. History of Klebsiella and Enterococcus as mentioned above. 5. Type 2 diabetes. 6. Tobacco abuse and tobaccoism. 7. Hypertension. 8. Hyperlipidemia. Plan Plan of Care supportive care wound vac picc d/w vascular surgery d/c on dapto and invanz,,, duration 2-6 wks depending on exposed bone and tissue at followups f/u with us in 2 wks d/w pt and in detail, pros and cons, side effects of picc and antibiotics discussed wkly cbc, bun/cr, sed rate and cpk DAVID NESS MD Jan 14, 2019 12:02
[2019-01-14] MEDS ORDERED: DAPTOmycin (GENERIC) IVPB 500 MG in IV NORMAL SALINE 50ML 50 ML IV ONE (13:00)
[2019-01-14] MEDS ORDERED: ERTAPENEM 1GM IVPB (GENERIC) 50 ML IV ONE (13:00)
--- NOTE | 2019-01-14 13:33 | SNU/HH DC ---
DISCHARGE WITH HOME HEALTH DISCHARGE INFORMATION: Discharge Date: Jan 14, 2019 Condition on Discharge: Stable CODE STATUS: Code Status: Full HOME HEALTH: Face to Face: I certify this patient is under my care and that I, or a nurse practitioner or physician's apartment assistant manager working with me, had a face to face encounter that meets the physician face to face encounter requirements with this patient on []. RN For Eval/Treatment: Yes Physical Therapy For: Evalulation/Treatment Occupational Therapy For: Evaluation/Treatment Home Health Aide For: Self-care IMAGING ADMINISTRATOR For: Community Resources Pt Meets Homebound Status: Other: (iv abx, wound vac leg, ryt) POST DISCHARGE ORDERS: Activity Instructions for Disc: Resume previous activity, Activity as tolerated Weight Bearing Status after Di: As tolerated Bathing Instructions: Shower-keep dressing dry DIET AFTER DISCHARGE: ADA Wound/Incision Care: Change dressing CHECKS AFTER DISCHARGE: Checks after discharge: Check blood press - daily, Check blood sugar, ac/hs FOLLOW-UP: PCP to follow Home Health: ID and ortho as instructed TREATMENT/EQUIPMENT ORDERS: Adaptive Equipment Issued: Wheelchair Infusion Equipment, home use: PICC Line CERTIFICATION STATEMENT: Certification Statement: Certification Statement: Based on the above finding, I certify that this patient is confined to the home and needs intermittent senior care care, physical therapy and/or speech therapy, or continues to need occupational therapy.~ This patient is under my care, and I have initiated the establishment of the plan of care.~ This patient will be followed by myself or a community physician who will periodically review the plan of care. Home Meds Active Scripts Doxycycline Monohydrate (DOXYCYCLINE MONOHYDRATE) 100 Mg Capsule, 1 CAP PO BID for MRSA Wound for 7 Days, #14 CAP Prov:TAYLOR COLON MD 01/07/19 Lactobacillus Rhamnosus Gg (CULTURELLE) 1 Each Cap.sprink, 1 CAP PO BID for Diarrhea for 7 Days, #14 CAP Prov:TAYLOR COLON MD 01/07/19 Hydrocodone Bit/Acetaminophen (HYDROCODONE-APAP 5-325 ) 1 Tab Tablet, 1 TAB PO PRN Q6HRS PRN for PAIN for 6 Days, #8 TAB Prov:TAYLOR COLON MD 01/06/19 Aspirin (ASPIRIN EC) 81 Mg Tablet.dr, 81 MG PO DAILYWBKFT for antiplatelet for 30 Days, #30 TAB.SR Prov:NAOMIE DENIS MD 11/11/18 Atorvastatin Calcium (ATORVASTATIN CALCIUM) 40 Mg Tablet, 20 MG PO QHS, #30 1 Refill Prov:VAL GALEANO MD 04/07/16 Levothyroxine Sodium (LEVOTHYROXINE SODIUM) 112 Mcg Tablet, 112 MCG PO DAILY07, #30 1 Refill Prov:VAL GALEANO MD 04/07/16 Reported Medications Metformin Hcl (METFORMIN HCL) 1,000 Mg Tablet, 1000 MG PO BID for ANTI-DIABETIC , TAB 0 Refills 01/04/19 Canagliflozin (INVOKANA) 300 Mg Tablet, 300 MG PO DAILY for diabetes, TAB 01/04/19 Losartan Potassium (LOSARTAN POTASSIUM) 50 Mg Tablet, 25 MG PO DAILY for HYPERTENSION, TAB 01/04/19 BRADEN PAREDES MD Jan 14, 2019 13:33
== END 2019-01-14 15:18 | disposition home health service (06) | DRG 564 ==
LOC: 5 NORTH 13:49
PROVIDERS: ADMIT Internal Medicine; ATTEND Internal Medicine
PROC: 02HV33Z Insertion of Infusion Device into Superior Vena Cava, Percutaneous Approach (ICD-10-PCS; principal; 2019-01-14)
DX: T87.81 Dehiscence of amputation stump (principal); A41.9 Sepsis, unspecified organism; T87.41 Infection of amputation stump, right upper extremity; E11.9 Type 2 diabetes mellitus without complications; I10 Essential (primary) hypertension; E78.5 Hyperlipidemia, unspecified; E03.9 Hypothyroidism, unspecified; Y83.5 Amputation of limb(s) as the cause of abnormal reaction of the patient, or of later complication, without mention of misadventure at the time of the procedure; E11.51 Type 2 diabetes mellitus with diabetic peripheral angiopathy without gangrene; F17.200 Nicotine dependence, unspecified, uncomplicated; B96.1 Klebsiella pneumoniae [K. pneumoniae] as the cause of diseases classified elsewhere; Z89.511 Acquired absence of right leg below knee; Z82.49 Family history of ischemic heart disease and other diseases of the circulatory system; Z79.4 Long term (current) use of insulin
CPT/HCPCS: 36415; 36569; 71045; 80048; 82565; 82962; 85025; 85651; 99406; J0878; J1335; J1815; J2543; J3370; J7040; J7050; J7620; J7030

== ENCOUNTER → 2019-03-24 | Outpatient (CLI) | payer OTHER ==
[~2019-03-24] MED LIST changes: -PANT40TA5 PO; +PANT40TA77 PO
--- NOTE | 2019-03-24 16:43 | RAD ---
Examination: Ultrasound soft tissue of the right below knee amputation site HISTORY: History of right stump area swelling COMPARISON: None available. Findings/ impression: Ultrasound of the soft tissue in the amputated region on the right demonstrates mild soft tissue edema or cellulitis without focal fluid collection. Electronically signed by: Joseph Manzanares MD (03/24/2019 4:40 PM) [place] [id number]
== END | disposition home or self-care (01) ==
LOC: US 13:28
PROVIDERS: ATTEND Emergency Medicine Undersea and Hyperbaric Medicine
DX: S81.801A Unspecified open wound, right lower leg, initial encounter (principal); M79.89 Other specified soft tissue disorders; X58.XXXA Exposure to other specified factors, initial encounter; Y93.89 Activity, other specified; Y92.89 Other specified places as the place of occurrence of the external cause; Y99.8 Other external cause status; Z89.511 Acquired absence of right leg below knee
CPT/HCPCS: 76881

== ENCOUNTER 2019-05-06 13:35 | Inpatient (IN) | payer OTHER ==
[~2019-05-06] VITALS: Ht 175.3 cm; Wt 76.9 kg
--- NOTE | 2019-05-06 14:45 | PDOC ---
Progress Note-Wound Care SUBJECTIVE Ms. Trujillo is a 62 yo diabetic female who had a right BKA in early November and had been recovering at home with home health when her home health nurse called vascular surgeon about wound dehiscence. She was admitted to [facility] Jan 04-[address] Pina performed I&D right BKA stump occluding muscle and fascia. Sh e was treated with NPWT. She was discharged on Po Doxy for 7 days per ID. She was readmitted to [facility] for necrotic wound bed and exposed bone 01/12/19. Veraflo for 36 hours. DC'd on Daptomycin and Invanz for MRSA. Ms. Trujillo is admitted today for infected right BKA surgical site. We have followed her in the wound care clinic due to delayed wound healing. The last 3-4 weeks she has had two pin-hole tunnels persist in the incision lines, otherwise the surgical site had closed. There were no s/s infection, however due to the failure to completely close, we did an US which showed tissue edema but no abscess or fluid collection. Today, the anterior portion of the incision site opened and there was purulosanguinous drainage per home health nurse. On exam in our office she had a 1 cm opening with a 2 mm tunnel which probed 1.5 cm deep, with a firm base, possibly bone. The other tissue within the wound base appears viable. She has a hx of PAD s/p right superficial femoral artery/popliteal artery atherectomy and angioplasty on 10/29/2018. RLE arterial US at that time showed 50% stenosis within the right popliteal artery and right peroneal artery. PCP: Bonilla Yancey MD Est GFR 72.4 on 01/04/19 OBJECTIVE Physical Exam: On exam in our office she had a 1 cm opening with a 2 mm tunnel which probed 1.5 cm deep, with a firm base, possibly bone. The other tissue within the wound base appears viable. Periwound has some erythema, no induration or abnormal warmth. ASSESSMENT Ms. Trujillo is admitted for infected right BKA surgical site. We have followed her in the wound care clinic for several months since her BKA due to delayed wound healing. She had MRSA in the wound and has been treated with several rounds of Zyvox. The last 3-4 weeks she has had two pin-hole tunnels persist in the incision lines, otherwise the surgical site had closed. There were no s/s infection, however due to the failure to completely close, we did an US which showed tissue edema but no abscess or fluid collection. Today, the anterior portion of the incision site opened and there was purulosanguinous drainage per home health nurse. ROS ROS: No fever, no GI changes WOUND Location of Modifier: Right Body Site: Leg Drainage Description: Purulent Odor: None/Absent PLAN Admit for IV antibiotics, ID consult, MRI, Vascular Surgery consult. Dr. Diallo saw the pt with me in the wound care clinic and agrees with current plan. MARLEE ALARCON MD May 06, 2019 14:45
[2019-05-06] MEDS ORDERED: VANCOMYCIN 1GM IVPB FOR OMNI 250 ML IV STA (14:50)
[2019-05-06] MEDS ORDERED: VANCOMYCIN 2 GM in IV NORMAL SALINE 500ML BAG 500 ML IV ONE (15:15)
[2019-05-06 16:03] LABS: BASO # 0.1 x10^3/uL (0.0-0.2); BASO % 1 % (0-3); EOS # 0.4 x10^3/uL (0.0-0.7); EOS % 8 % (0-3); HEMATOCRIT 37.5 % (36.0-47.0); HEMOGLOBIN 12.3 g/dL (12.0-15.5); LYMPH # 1.7 x10^3/uL (1.0-4.8); LYMPH % 30 % (24-48); MEAN CORPUSCULAR HEMOGLOBIN 28 pg (25-35); MEAN CORPUSCULAR HGB CONC 33 g/dL (31-37); MEAN CORPUSCULAR VOLUME 86 fL (79-100); MONO # 0.4 x10^3/uL (0.0-1.1); MONO % 6 % (0-9); NEUT # 3.1 x10^3/uL (1.8-7.7); NEUT % 55 % (31-73); PLATELET COUNT 206 x10^3/uL (140-400); RED BLOOD COUNT 4.37 x10^6/uL (3.50-5.40); RED CELL DISTRIBUTION WIDTH 18.9 % (11.5-14.5); WHITE BLOOD COUNT 5.6 x10^3/uL (4.0-11.0)
[2019-05-06 16:16] LABS: ALBUMIN 3.5 g/dL (3.4-5.0); ALBUMIN/GLOBULIN RATIO 0.9 (1.0-1.7); CALCIUM 9.4 mg/dL (8.5-10.1); CREATININE 0.8 mg/dL (0.6-1.0); GFR 72.4; POTASSIUM 4.3 mmol/L (3.5-5.1); TOTAL BILIRUBIN 0.3 mg/dL (0.2-1.0); TOTAL PROTEIN 7.5 g/dL (6.4-8.2)
[2019-05-06 17:51] VITALS: BP 132/73
[2019-05-06 19:00] VITALS: BP 130/58
[2019-05-06] MEDS ORDERED: GADOTERATE 7.5 MMOL/15ML VIAL. IVP ONE (19:00)
--- NOTE | 2019-05-06 19:05 | NUR ---
NURSING NOTE Pt off floor to go for MRI.
--- NOTE | 2019-05-06 20:45 | NUR ---
NURSING NOTE Pt back to floor from MRI. Pt voided in toilet, then assisted back to bed via WC. Assessment completed, pt denies pain at this time. Dr. Fermin saw pt downstairs in MRI. Call light in reach, bsc next to bed. Pt denies any further needs. Will monitor.
[2019-05-06 23:08] VITALS: BP 120/63
[2019-05-06] MEDS ORDERED: HYDROcodone/APAP 5/325MG 1 TAB TABLET PO PRN (23:30)
--- NOTE | 2019-05-06 23:37 | RAD ---
EXAM: MRI RIGHT KNEE WITHOUT AND WITH IV CONTRAST DATE: 05/06/2019 3:04 PM CLINICAL INDICATION: COMPARISON: None. TECHNIQUE: Multiplanar, multisequence MRI of the right knee was performed before and after the administration of intravenous gadolinium contrast. FINDINGS: Changes of wlmbp-plj-dgrr amputation are seen. Changes of soft tissue ulceration at the anterior, inferior margin of the amputation site with tract extending to the subjacent bone. There is mild confluent loss of the normal marrow fat with cortical erosion immediately subjacent to the ulceration consistent with acute osteomyelitis. Diffuse edema of the musculature, possibly postsurgical or myositis. Diffuse soft tissue edema is nonspecific, though cellulitis would have similar appearance. Limited evaluation of the knee joint. IMPRESSION: Changes of right myanx-rxs-epbv amputation with soft tissue ulceration at the anterior-inferior right tibia with sinus tract to the subjacent bone and associated bony changes is consistent with acute osteomyelitis. Electronically signed by: Brian Gottlieb MD (05/06/2019 11:35 PM) [facility]
--- NOTE | 2019-05-07 00:34 | HP ---
ADMIT DATE: 05/06/2019 CHIEF COMPLAINT: Right BKA with wound. HISTORY OF PRESENT ILLNESS: The patient is a pleasant 63-year-old female who underwent a right BKA in November of this year. Since then, she has been having problems. She has had a dehiscence. She actually was admitted in January and Dr. Gusman performed an incision and drainage and since then, she has been seen at the Wound Care Clinic. She was then readmitted later in January with necrotic wound with bone exposed. She was then discharged on daptomycin and Invanz for MRSA. Today, she was at the wound clinic. The wound seems to be worse. Dr. Paniagua called me. I agreed to admit the patient. We are going to consult her vascular surgeon, Infectious Disease and Wound Care Clinic. PAST MEDICAL HISTORY: Peripheral vascular disease, the above-mentioned right BKA with complications, hypertension, hyperlipidemia, chronic pain, arthritis, anxiety, diabetes, hypothyroidism. ALLERGIES: SILVER. FAMILY HISTORY: Coronary artery disease. SOCIAL HISTORY: She does not drink, smoke or take drugs. MEDICATIONS: Reviewed. She is on atorvastatin, losartan, aspirin, hydrocodone, lactobacillus, metformin, Synthroid and Invokana. REVIEW OF SYSTEMS: GENERAL: No history of weight change, weakness or fevers. SKIN: No bruising, hair changes or rashes. EYES: No blurred, double or loss of vision. NOSE AND THROAT: No history of nosebleeds, hoarseness or sore throat. HEART: No history of palpitations, chest pain or shortness of breath on exertion. LUNGS: Denies cough, hemoptysis, wheezing or shortness of breath. GASTROINTESTINAL: Denies changes in appetite, nausea, vomiting, diarrhea or constipation. GENITOURINARY: No history of frequency, urgency, hesitancy or nocturia. NEUROLOGIC: Denies history of numbness, tingling, tremor or weakness. PSYCHIATRIC: No history of panic, anxiety or depression. ENDOCRINE: No history of heat or cold intolerance, polyuria or polydipsia. EXTREMITIES: Denies muscle weakness, joint pain, pain on walking or stiffness, but she complains of right leg pain. PHYSICAL EXAMINATION: VITALS: Within normal limits and are stable. GENERAL: No apparent distress. Alert and oriented. HEENT: Head is normocephalic, atraumatic, pupils were equally round and reactive to light and accommodation. NECK: Supple, no JVD, no thyromegaly was noted. LUNGS: Clear to auscultation in all lung hedrick without rhonchi or wheezing. HEART: RRR, S1, S2 present. Peripheral pulses intact, no obvious murmurs were noted. ABDOMEN: Soft, nontender. Positive bowel sounds no organomegaly, normal bowel sounds. EXTREMITIES: Without any cyanosis, clubbing, or edema. Pedal pulses intact, Homans sign is negative. Right leg has a BKA with clean, dry and intact dressing. NEUROLOGIC: Normal speech, normal tone. A & O x3, moves all extremities, no obvious focal deficits. PSYCHIATRIC: Normal affect, normal mood. Stable. SKIN: No ulcerations or rashes, good skin turgor, no jaundice. VASCULAR: Good capillary refill, neurovascular bundle appears to be intact. ASSESSMENT AND PLAN: Postoperative right below the knee amputation with infection and complications. The patient has been admitted. We will consult Infectious Disease, Vascular Surgery and Wound Care Clinic, home meds, PT, OT aggressive wound care, DVT prophylaxis. BRIT BOWMAN DO DR: RYLIE/robbi JOB#: [id number] / [id number]
[2019-05-07 03:00] VITALS: BP 107/54
[2019-05-07] MEDS: LEVOTHYROXINE 112 MCG TABLET PO SCH (06:36)
[2019-05-07 06:43] VITALS: BP 104/54
[2019-05-07] MEDS: LACTOBACILLUS RHAMNOSUS GG 1 CAPSULE. PO SCH ×2 (08:40→20:52)
[2019-05-07] MEDS: ASPIRIN ENTERIC COATED 81 MG TABLET.DR. PO SCH (08:40)
[2019-05-07] MEDS: metFORMIN 500 MG TABLET PO SCH ×2 (08:40→17:02)
[2019-05-07] MEDS: LOSARTAN POTASSIUM 25 MG TABLET. PO SCH (08:41)
--- NOTE | 2019-05-07 08:43 | NUR ---
Pt is aware we do not have invokana, she will have her bring her home meds.
[2019-05-07] MEDS ORDERED: DEXTROSE 50% 25 GM / 50ML DISP.SYRIN. IV PRN (10:00)
[2019-05-07] MEDS ORDERED: MORPHINE SULFATE 2 MG/ML VIAL. IV PRN (10:00)
[2019-05-07] MEDS ORDERED: ZOLPIDEM 5 MG TABLET. PO PRN (10:00)
[2019-05-07] MEDS ORDERED: HYDROcodone/APAP 5/325MG 1 TAB TABLET PO PRN (10:00)
[2019-05-07] MEDS ORDERED: IV DEXTROSE 5% 250 ML BAG. IV PRN (10:00)
[2019-05-07] MEDS ORDERED: CALCIUM CARBONATE 500 MG TAB.CHEW PO PRN (10:00)
--- NOTE | 2019-05-07 10:04 | PDOC2 ---
CONSULT Date of Consult Date of Consult DATE: 05/07/19 TIME: 09:55 Reason for Consult Reason for Consult: Open ulcer, right below-knee amputation site Referring Physician Referring Physician: Identification/Chief Complaint Chief Complaint Open wound right below-knee amputation History of Present Illness Reason for Visit: 63-year-old female initially presented in November 2018 with an open right forefoot wound. She underwent partial forefoot debridement, this did not heal. She underwent subsequent arteriographic evaluation, atherectomy, and balloon angioplasty. Her forefoot wound extended with cellulitis and infection into her distal calf. She underwent a right below-knee amputation. She's had multiple problems with her below-knee amputation site, she has been treated with wound VAC therapy and antibiotics. She was admitted to the hospital yesterday because of new drainage from the midportion of the wound. She has been placed on antibiotics and vascular consult ation was requested. Past Medical History Cardiovascular: HTN, Hyperlipidemia Endocrine: Diabetes, Hypothyroidism Past Surgical History Past Surgical History Right below-knee amputation Family History Family History: Hypertension Social History ALCOHOL: none Drugs: None Lives: with Family Current Medications Current Medications Current Medications Vancomycin HCl 250 ml @ 250 mls/hr 1X STAT IV ; Start 05/06/19 at 14:50; Stop 05/06/19 at 15:49; Status UNV Vancomycin HCl 2 gm/Sodium Chloride 500 ml @ 250 mls/hr ONCE ONCE IV Last administered on 05/06/19at 21:12; Start 05/06/19 at 15:15; Stop 05/06/19 at 17:14; Status DC Gadoterate Meglumine (Dotarem) 15 ml 1X ONCE IVP Last administered on 05/06/19at 20:11; Start 05/06/19 at 19:00; Stop 05/06/19 at 19:01; Status DC Aspirin (Ecotrin) 81 mg DAILYWBKFT PO Last administered on 05/07/19at 08:40; Start 05/07/19 at 08:00 Atorvastatin Calcium (Lipitor) 20 mg QHS PO ; Start 05/07/19 at 21:00 Acetaminophen/ Hydrocodone Bitart (Lortab 5/325) 1 tab PRN Q6HRS PRN PO MODERATE PAIN 4-6; Start 05/06/19 at 23:30 Lactobacillus Rhamnosus (Culturelle) 1 cap BID PO Last administered on 05/07/19at 08:40; Start 05/07/19 at 09:00 Levothyroxine Sodium (Synthroid) 112 mcg DAILY07 PO Last administered on 05/07/19at 06:36; Start 05/07/19 at 07:00 Losartan Potassium (Cozaar) 25 mg DAILY PO Last administered on 05/07/19at 08:41; Start 05/07/19 at 09:00 Non-Formulary Medication (Canagliflozin (Invokana)) 300 mg DAILY PO ; Start 05/07/19 at 09:00; Status UNV Metformin HCl (Glucophage) 1,000 mg BIDWMEALS PO Last administered on 05/07/19at 08:40; Start 05/07/19 at 08:00 Insulin Human Lispro (HumaLOG) 0-9 UNITS TIDWMEALS SQ ; Start 05/07/19 at 12:00 Dextrose (Dextrose 50%-Water Syringe) 12.5 gm PRN Q15MIN PRN IV SEE COMMENTS; Start 05/07/19 at 10:00 Dextrose 250 ml PRN Q15MIN PRN IV SEE COMMENTS; Start 05/07/19 at 10:00; Status UNV Acetaminophen/ Hydrocodone Bitart (Lortab 5/325) 1 tab PRN Q4HRS PRN PO PAIN; Start 05/07/19 at 10:00; Status UNV Morphine Sulfate (Morphine Sulfate) 2 mg PRN Q2HR PRN IV PAIN; Start 05/07/19 at 10:00; Status UNV Zolpidem Tartrate (Ambien) 5 mg PRN QHS PRN PO INSOMNIA; Start 05/07/19 at 10:00; Status UNV Calcium Carbonate/ Glycine (Tums) 500 mg PRN AFTMEALHC PRN PO INDIGESTION; Start 05/07/19 at 10:00; Status UNV Active Scripts Active Culturelle (Lactobacillus Rhamnosus Gg) 1 Each Cap.sprink 1 Cap PO BID 7 Days Hydrocodone-Apap 5-325 (Hydrocodone Bit/Acetaminophen) 1 Tab Tablet 1 Tab PO PRN Q6HRS PRN 6 Days Aspirin Ec (Aspirin) 81 Mg Tablet. 81 Mg PO DAILYWBKFT 30 Days Atorvastatin Calcium 40 Mg Tablet 20 Mg PO QHS Levothyroxine Sodium 112 Mcg Tablet 112 Mcg PO DAILY07 Reported Metformin Hcl 1,000 Mg Tablet 1,000 Mg PO BID Invokana (Canagliflozin) 300 Mg Tablet 300 Mg PO DAILY Losartan Potassium 50 Mg Tablet 25 Mg PO DAILY Allergies Allergies: Coded Allergies: silver (Unverified Allergy, Intermediate, wound dressing/preparations, 05/06/19) I S O L A T I O N *CONTACT* (Verified Allergy, Unknown, 01/11/19) mrsa No Known Medication Allergies (Verified Allergy, Unknown, 01/11/19) Physical Exam Physical Exam Excellent range of motion of the right knee. There is no significant cellulitis at the site of the open wound. The wound is examined. There is palpable bone at the base of the wound but no significant cavity. Wound cultures in the depth of the wound were taken. Vitals VITALS Vital Signs Date Time Temp Pulse Resp B/P (MAP) Pulse Ox O2 Delivery O2 Flow Rate FiO2 05/07/19 08:41 84 104/54 05/07/19 06:43 97.8 20 100 Room Air 97.8 Labs Labs Laboratory Tests Test 05/06/19 15:40 05/06/19 21:11 05/07/19 07:44 White Blood Count 5.6 x10^3/uL (4.0-11.0) Red Blood Count 4.37 x10^6/uL (3.50-5.40) Hemoglobin 12.3 g/dL (12.0-15.5) Hematocrit 37.5 % (36.0-47.0) Mean Corpuscular Volume 86 fL (79-100) Mean Corpuscular Hemoglobin 28 pg (25-35) Mean Corpuscular Hemoglobin Concent 33 g/dL (31-37) Red Cell Distribution Width 18.9 % (11.5-14.5) Platelet Count 206 x10^3/uL (140-400) Neutrophils (%) (Auto) 55 % (31-73) Lymphocytes (%) (Auto) 30 % (24-48) Monocytes (%) (Auto) 6 % (0-9) Eosinophils (%) (Auto) 8 % (0-3) Basophils (%) (Auto) 1 % (0-3) Neutrophils # (Auto) 3.1 x10^3/uL (1.8-7.7) Lymphocytes # (Auto) 1.7 x10^3/uL (1.0-4.8) Monocytes # (Auto) 0.4 x10^3/uL (0.0-1.1) Eosinophils # (Auto) 0.4 x10^3/uL (0.0-0.7) Basophils # (Auto) 0.1 x10^3/uL (0.0-0.2) Sodium Level 142 mmol/L (136-145) Potassium Level 4.3 mmol/L (3.5-5.1) Chloride Level 106 mmol/L (98-107) Carbon Dioxide Level 26 mmol/L (21-32) Anion Gap 10 (6-14) Blood Urea Nitrogen 24 mg/dL (7-20) Creatinine 0.8 mg/dL (0.6-1.0) Estimated GFR (Cockcroft-Gault) 72.4 BUN/Creatinine Ratio 30 (6-20) Glucose Level 152 mg/dL (70-99) Calcium Level 9.4 mg/dL (8.5-10.1) Total Bilirubin 0.3 mg/dL (0.2-1.0) Aspartate Amino Transf (AST/SGOT) 13 U/L (15-37) Alanine Aminotransferase (ALT/SGPT) 24 U/L (14-59) Alkaline Phosphatase 81 U/L (46-116) Total Protein 7.5 g/dL (6.4-8.2) Albumin 3.5 g/dL (3.4-5.0) Albumin/Globulin Ratio 0.9 (1.0-1.7) Glucose (Fingerstick) 150 mg/dL (70-99) 133 mg/dL (70-99) Laboratory Tests Test 05/06/19 15:40 05/06/19 21:11 05/07/19 07:44 White Blood Count 5.6 x10^3/uL (4.0-11.0) Red Blood Count 4.37 x10^6/uL (3.50-5.40) Hemoglobin 12.3 g/dL (12.0-15.5) Hematocrit 37.5 % (36.0-47.0) Mean Corpuscular Volume 86 fL (79-100) Mean Corpuscular Hemoglobin 28 pg (25-35) Mean Corpuscular Hemoglobin Concent 33 g/dL (31-37) Red Cell Distribution Width 18.9 % (11.5-14.5) Platelet Count 206 x10^3/uL (140-400) Neutrophils (%) (Auto) 55 % (31-73) Lymphocytes (%) (Auto) 30 % (24-48) Monocytes (%) (Auto) 6 % (0-9) Eosinophils (%) (Auto) 8 % (0-3) Basophils (%) (Auto) 1 % (0-3) Neutrophils # (Auto) 3.1 x10^3/uL (1.8-7.7) Lymphocytes # (Auto) 1.7 x10^3/uL (1.0-4.8) Monocytes # (Auto) 0.4 x10^3/uL (0.0-1.1) Eosinophils # (Auto) 0.4 x10^3/uL (0.0-0.7) Basophils # (Auto) 0.1 x10^3/uL (0.0-0.2) Sodium Level 142 mmol/L (136-145) Potassium Level 4.3 mmol/L (3.5-5.1) Chloride Level 106 mmol/L (98-107) Carbon Dioxide Level 26 mmol/L (21-32) Anion Gap 10 (6-14) Blood Urea Nitrogen 24 mg/dL (7-20) Creatinine 0.8 mg/dL (0.6-1.0) Estimated GFR (Cockcroft-Gault) 72.4 BUN/Creatinine Ratio 30 (6-20) Glucose Level 152 mg/dL (70-99) Calcium Level 9.4 mg/dL (8.5-10.1) Total Bilirubin 0.3 mg/dL (0.2-1.0) Aspartate Amino Transf (AST/SGOT) 13 U/L (15-37) Alanine Aminotransferase (ALT/SGPT) 24 U/L (14-59) Alkaline Phosphatase 81 U/L (46-116) Total Protein 7.5 g/dL (6.4-8.2) Albumin 3.5 g/dL (3.4-5.0) Albumin/Globulin Ratio 0.9 (1.0-1.7) Glucose (Fingerstick) 150 mg/dL (70-99) 133 mg/dL (70-99) Assessment/Plan Assessment/Plan Open wound with a previous right below-knee amputation site with exposed bone at the base. Discussed the significance of this finding with the patient. 3 options for treatment are available. 1. We could continue antibiotic therapy and reinitiate wound VAC to this small wound with THAT the antibiotics will sterilize the bone which is palpable at the base of the wound and allow for healing. 2. More extensive operative debridement with removal of obviously infected bone and placement of wound VAC and continued antibiotic therapy. If the infected bone sequestrum is removed I think that the chances for long-term healing are improved. 3. Formal revision of below-knee amputation with excision of the distal tibia and primary closure His options were reviewed with the patient. For now we'll reinitiate wound VAC therapy for disease on (Thursday) and continue to see how the patient progresses. KIRT BARRERA MD May 07, 2019 10:04
[2019-05-07 11:17] VITALS: BP 131/51
--- NOTE | 2019-05-07 11:22 | PDOC ---
PROGRESS NOTES Chief Complaint Chief Complaint OM RT stump BKA RT DM 2 good control History of Present Illness History of Present Illness NO pain, MRI proves OM MRI: Changes of right [id number] amputation with soft tissue ulceration at the anterior-inferior right tibia with sinus tract to the subjacent bone and associated bony changes is consistent with acute osteomyelitis. Dw ID Mid level Known to wound care pMG PLAn: will need 6 weeks IV abx and pICC, or surgical intervention - INvolve vasc sx too if not yet on case NO pain HOme emds reconciled SSi Hgba1c.... dw her nad I have provided to her MRI result copy Vitals Vitals Vital Signs Date Time Temp Pulse Resp B/P (MAP) Pulse Ox O2 Delivery O2 Flow Rate FiO2 05/07/19 11:17 97.5 83 16 131/51 (77) Room Air 97.5 05/07/19 06:43 100 Physical Exam General: Alert, Oriented X3, Cooperative, No acute distress Heart: Regular rate, Normal S1, Normal S2, No murmurs Lungs: Clear, Other Abdomen: Normal bowel sounds, Soft Skin: Other (rt bka stump, no open wounds or drainage) Labs LABS Laboratory Tests Test 05/06/19 15:40 05/06/19 21:11 05/07/19 07:44 White Blood Count 5.6 x10^3/uL (4.0-11.0) Red Blood Count 4.37 x10^6/uL (3.50-5.40) Hemoglobin 12.3 g/dL (12.0-15.5) Hematocrit 37.5 % (36.0-47.0) Mean Corpuscular Volume 86 fL (79-100) Mean Corpuscular Hemoglobin 28 pg (25-35) Mean Corpuscular Hemoglobin Concent 33 g/dL (31-37) Red Cell Distribution Width 18.9 % (11.5-14.5) Platelet Count 206 x10^3/uL (140-400) Neutrophils (%) (Auto) 55 % (31-73) Lymphocytes (%) (Auto) 30 % (24-48) Monocytes (%) (Auto) 6 % (0-9) Eosinophils (%) (Auto) 8 % (0-3) Basophils (%) (Auto) 1 % (0-3) Neutrophils # (Auto) 3.1 x10^3/uL (1.8-7.7) Lymphocytes # (Auto) 1.7 x10^3/uL (1.0-4.8) Monocytes # (Auto) 0.4 x10^3/uL (0.0-1.1) Eosinophils # (Auto) 0.4 x10^3/uL (0.0-0.7) Basophils # (Auto) 0.1 x10^3/uL (0.0-0.2) Sodium Level 142 mmol/L (136-145) Potassium Level 4.3 mmol/L (3.5-5.1) Chloride Level 106 mmol/L (98-107) Carbon Dioxide Level 26 mmol/L (21-32) Anion Gap 10 (6-14) Blood Urea Nitrogen 24 mg/dL (7-20) Creatinine 0.8 mg/dL (0.6-1.0) Estimated GFR (Cockcroft-Gault) 72.4 BUN/Creatinine Ratio 30 (6-20) Glucose Level 152 mg/dL (70-99) Calcium Level 9.4 mg/dL (8.5-10.1) Total Bilirubin 0.3 mg/dL (0.2-1.0) Aspartate Amino Transf (AST/SGOT) 13 U/L (15-37) Alanine Aminotransferase (ALT/SGPT) 24 U/L (14-59) Alkaline Phosphatase 81 U/L (46-116) Total Protein 7.5 g/dL (6.4-8.2) Albumin 3.5 g/dL (3.4-5.0) Albumin/Globulin Ratio 0.9 (1.0-1.7) Glucose (Fingerstick) 150 mg/dL (70-99) 133 mg/dL (70-99) Comment Review of Relevant I have reviewed the following items nikole (where applicable) has been applied. Labs Laboratory Tests Test 05/06/19 15:40 05/06/19 21:11 05/07/19 07:44 White Blood Count 5.6 x10^3/uL (4.0-11.0) Red Blood Count 4.37 x10^6/uL (3.50-5.40) Hemoglobin 12.3 g/dL (12.0-15.5) Hematocrit 37.5 % (36.0-47.0) Mean Corpuscular Volume 86 fL (79-100) Mean Corpuscular Hemoglobin 28 pg (25-35) Mean Corpuscular Hemoglobin Concent 33 g/dL (31-37) Red Cell Distribution Width 18.9 % (11.5-14.5) Platelet Count 206 x10^3/uL (140-400) Neutrophils (%) (Auto) 55 % (31-73) Lymphocytes (%) (Auto) 30 % (24-48) Monocytes (%) (Auto) 6 % (0-9) Eosinophils (%) (Auto) 8 % (0-3) Basophils (%) (Auto) 1 % (0-3) Neutrophils # (Auto) 3.1 x10^3/uL (1.8-7.7) Lymphocytes # (Auto) 1.7 x10^3/uL (1.0-4.8) Monocytes # (Auto) 0.4 x10^3/uL (0.0-1.1) Eosinophils # (Auto) 0.4 x10^3/uL (0.0-0.7) Basophils # (Auto) 0.1 x10^3/uL (0.0-0.2) Sodium Level 142 mmol/L (136-145) Potassium Level 4.3 mmol/L (3.5-5.1) Chloride Level 106 mmol/L (98-107) Carbon Dioxide Level 26 mmol/L (21-32) Anion Gap 10 (6-14) Blood Urea Nitrogen 24 mg/dL (7-20) Creatinine 0.8 mg/dL (0.6-1.0) Estimated GFR (Cockcroft-Gault) 72.4 BUN/Creatinine Ratio 30 (6-20) Glucose Level 152 mg/dL (70-99) Calcium Level 9.4 mg/dL (8.5-10.1) Total Bilirubin 0.3 mg/dL (0.2-1.0) Aspartate Amino Transf (AST/SGOT) 13 U/L (15-37) Alanine Aminotransferase (ALT/SGPT) 24 U/L (14-59) Alkaline Phosphatase 81 U/L (46-116) Total Protein 7.5 g/dL (6.4-8.2) Albumin 3.5 g/dL (3.4-5.0) Albumin/Globulin Ratio 0.9 (1.0-1.7) Glucose (Fingerstick) 150 mg/dL (70-99) 133 mg/dL (70-99) Laboratory Tests Test 05/06/19 15:40 05/06/19 21:11 05/07/19 07:44 White Blood Count 5.6 x10^3/uL (4.0-11.0) Red Blood Count 4.37 x10^6/uL (3.50-5.40) Hemoglobin 12.3 g/dL (12.0-15.5) Hematocrit 37.5 % (36.0-47.0) Mean Corpuscular Volume 86 fL (79-100) Mean Corpuscular Hemoglobin 28 pg (25-35) Mean Corpuscular Hemoglobin Concent 33 g/dL (31-37) Red Cell Distribution Width 18.9 % (11.5-14.5) Platelet Count 206 x10^3/uL (140-400) Neutrophils (%) (Auto) 55 % (31-73) Lymphocytes (%) (Auto) 30 % (24-48) Monocytes (%) (Auto) 6 % (0-9) Eosinophils (%) (Auto) 8 % (0-3) Basophils (%) (Auto) 1 % (0-3) Neutrophils # (Auto) 3.1 x10^3/uL (1.8-7.7) Lymphocytes # (Auto) 1.7 x10^3/uL (1.0-4.8) Monocytes # (Auto) 0.4 x10^3/uL (0.0-1.1) Eosinophils # (Auto) 0.4 x10^3/uL (0.0-0.7) Basophils # (Auto) 0.1 x10^3/uL (0.0-0.2) Sodium Level 142 mmol/L (136-145) Potassium Level 4.3 mmol/L (3.5-5.1) Chloride Level 106 mmol/L (98-107) Carbon Dioxide Level 26 mmol/L (21-32) Anion Gap 10 (6-14) Blood Urea Nitrogen 24 mg/dL (7-20) Creatinine 0.8 mg/dL (0.6-1.0) Estimated GFR (Cockcroft-Gault) 72.4 BUN/Creatinine Ratio 30 (6-20) Glucose Level 152 mg/dL (70-99) Calcium Level 9.4 mg/dL (8.5-10.1) Total Bilirubin 0.3 mg/dL (0.2-1.0) Aspartate Amino Transf (AST/SGOT) 13 U/L (15-37) Alanine Aminotransferase (ALT/SGPT) 24 U/L (14-59) Alkaline Phosphatase 81 U/L (46-116) Total Protein 7.5 g/dL (6.4-8.2) Albumin 3.5 g/dL (3.4-5.0) Albumin/Globulin Ratio 0.9 (1.0-1.7) Glucose (Fingerstick) 150 mg/dL (70-99) 133 mg/dL (70-99) Medications Current Medications Vancomycin HCl 250 ml @ 250 mls/hr 1X STAT IV ; Start 05/06/19 at 14:50; Stop 05/06/19 at 15:49; Status UNV Vancomycin HCl 2 gm/Sodium Chloride 500 ml @ 250 mls/hr ONCE ONCE IV Last administered on 05/06/19at 21:12; Start 05/06/19 at 15:15; Stop 05/06/19 at 17:14; Status DC Gadoterate Meglumine (Dotarem) 15 ml 1X ONCE IVP Last administered on 05/06/19at 20:11; Start 05/06/19 at 19:00; Stop 05/06/19 at 19:01; Status DC Aspirin (Ecotrin) 81 mg DAILYWBKFT PO Last administered on 05/07/19at 08:40; Start 05/07/19 at 08:00 Atorvastatin Calcium (Lipitor) 20 mg QHS PO ; Start 05/07/19 at 21:00 Acetaminophen/ Hydrocodone Bitart (Lortab 5/325) 1 tab PRN Q6HRS PRN PO MODERATE PAIN 4-6; Start 05/06/19 at 23:30; Stop 05/07/19 at 09:59; Status DC Lactobacillus Rhamnosus (Culturelle) 1 cap BID PO Last administered on 05/07/19at 08:40; Start 05/07/19 at 09:00 Levothyroxine Sodium (Synthroid) 112 mcg DAILY07 PO Last administered on 05/07/19at 06:36; Start 05/07/19 at 07:00 Losartan Potassium (Cozaar) 25 mg DAILY PO Last administered on 05/07/19at 08:41; Start 05/07/19 at 09:00 Non-Formulary Medication (Canagliflozin (Invokana)) 300 mg DAILY PO ; Start 05/07/19 at 09:00; Status UNV Metformin HCl (Glucophage) 1,000 mg BIDWMEALS PO Last administered on 05/07/19at 08:40; Start 05/07/19 at 08:00 Insulin Human Lispro (HumaLOG) 0-9 UNITS TIDWMEALS SQ ; Start 05/07/19 at 12:00 Dextrose (Dextrose 50%-Water Syringe) 12.5 gm PRN Q15MIN PRN IV SEE COMMENTS; Start 05/07/19 at 10:00 Dextrose 250 ml PRN Q15MIN PRN IV SEE COMMENTS; Start 05/07/19 at 10:00 Acetaminophen/ Hydrocodone Bitart (Lortab 5/325) 1 tab PRN Q4HRS PRN PO MODERATE PAIN; Start 05/07/19 at 10:00 Morphine Sulfate (Morphine Sulfate) 2 mg PRN Q2HR PRN IV PAIN; Start 05/07/19 at 10:00 Zolpidem Tartrate (Ambien) 5 mg PRN QHS PRN PO INSOMNIA; Start 05/07/19 at 10:00 Calcium Carbonate/ Glycine (Tums) 500 mg PRN AFTMEALHC PRN PO INDIGESTION; Start 05/07/19 at 10:00 Active Scripts Active Culturelle (Lactobacillus Rhamnosus Gg) 1 Each Cap.sprink 1 Cap PO BID 7 Days Hydrocodone-Apap 5-325 (Hydrocodone Bit/Acetaminophen) 1 Tab Tablet 1 Tab PO PRN Q6HRS PRN 6 Days Aspirin Ec (Aspirin) 81 Mg Tablet. 81 Mg PO DAILYWBKFT 30 Days Atorvastatin Calcium 40 Mg Tablet 20 Mg PO QHS Levothyroxine Sodium 112 Mcg Tablet 112 Mcg PO DAILY07 Reported Metformin Hcl 1,000 Mg Tablet 1,000 Mg PO BID Invokana (Canagliflozin) 300 Mg Tablet 300 Mg PO DAILY Losartan Potassium 50 Mg Tablet 25 Mg PO DAILY Vitals/I & O Vital Sign - Last 24 Hours 05/06/19 05/06/19 05/06/19 05/06/19 16:15 17:51 19:00 20:45 Temp 97.6 97.9 97.6 97.9 Pulse 74 80 Resp 16 18 B/P (MAP) 132/73 (92) 130/58 (82) Pulse Ox 99 O2 Delivery Room Air Room Air Room Air Room Air 05/06/19 05/07/19 05/07/19 05/07/19 23:08 03:00 06:43 08:00 Temp 97.5 98.0 97.8 97.5 98.0 97.8 Pulse 85 84 Resp 20 16 20 B/P (MAP) 120/63 (82) 107/54 (71) 104/54 (71) Pulse Ox 100 98 100 O2 Delivery Room Air Room Air Room Air Room Air 05/07/19 05/07/19 08:41 11:17 Temp 97.5 97.5 Pulse 84 83 Resp 16 B/P (MAP) 104/54 131/51 (77) O2 Delivery Room Air Intake and Output 05/06/19 05/06/19 05/07/19 14:59 22:59 06:59 Intake Total 770 ml Balance 770 ml BRADEN PAREDES MD May 07, 2019 11:22
[2019-05-07] MEDS: INSULIN LISPRO 300 UNITS/3 ML INSULN.PEN. SQ SCH ×2 (12:53→17:00)
[2019-05-07] MEDS: VANCOMYCIN PER PHARMACY MC PRN (13:51)
--- NOTE | 2019-05-07 14:05 | PDOC ---
Infectious Disease Note Vital Sign Vital Signs Vital Signs Date Time Temp Pulse Resp B/P (MAP) Pulse Ox O2 Delivery O2 Flow Rate FiO2 05/07/19 11:17 97.5 83 16 131/51 (77) Room Air 97.5 05/07/19 06:43 100 Labs Lab Laboratory Tests Test 05/06/19 15:40 05/06/19 21:11 05/07/19 07:44 05/07/19 10:20 White Blood Count 5.6 x10^3/uL (4.0-11.0) Red Blood Count 4.37 x10^6/uL (3.50-5.40) Hemoglobin 12.3 g/dL (12.0-15.5) Hematocrit 37.5 % (36.0-47.0) Mean Corpuscular Volume 86 fL (79-100) Mean Corpuscular Hemoglobin 28 pg (25-35) Mean Corpuscular Hemoglobin Concent 33 g/dL (31-37) Red Cell Distribution Width 18.9 % (11.5-14.5) Platelet Count 206 x10^3/uL (140-400) Neutrophils (%) (Auto) 55 % (31-73) Lymphocytes (%) (Auto) 30 % (24-48) Monocytes (%) (Auto) 6 % (0-9) Eosinophils (%) (Auto) 8 % (0-3) Basophils (%) (Auto) 1 % (0-3) Neutrophils # (Auto) 3.1 x10^3/uL (1.8-7.7) Lymphocytes # (Auto) 1.7 x10^3/uL (1.0-4.8) Monocytes # (Auto) 0.4 x10^3/uL (0.0-1.1) Eosinophils # (Auto) 0.4 x10^3/uL (0.0-0.7) Basophils # (Auto) 0.1 x10^3/uL (0.0-0.2) Sodium Level 142 mmol/L (136-145) Potassium Level 4.3 mmol/L (3.5-5.1) Chloride Level 106 mmol/L (98-107) Carbon Dioxide Level 26 mmol/L (21-32) Anion Gap 10 (6-14) Blood Urea Nitrogen 24 mg/dL (7-20) Creatinine 0.8 mg/dL (0.6-1.0) Estimated GFR (Cockcroft-Gault) 72.4 BUN/Creatinine Ratio 30 (6-20) Glucose Level 152 mg/dL (70-99) Calcium Level 9.4 mg/dL (8.5-10.1) Total Bilirubin 0.3 mg/dL (0.2-1.0) Aspartate Amino Transf (AST/SGOT) 13 U/L (15-37) Alanine Aminotransferase (ALT/SGPT) 24 U/L (14-59) Alkaline Phosphatase 81 U/L (46-116) Total Protein 7.5 g/dL (6.4-8.2) Albumin 3.5 g/dL (3.4-5.0) Albumin/Globulin Ratio 0.9 (1.0-1.7) Glucose (Fingerstick) 150 mg/dL (70-99) 133 mg/dL (70-99) Erythrocyte Sedimentation Rate 12 (0-25) Objective Assessment Nonhealing stump wound with acute osteomyelitis right BKA h/o Klebsiella, enterococcus (PCN-S) and MRSA wound infection DM PAD s/p revascularization, 10/2018 Plan Plan of Care Patient wants to avoid surgery and try another round of IV abx instead. She understands the wound may not heal with abx alone. Continue vancomycin and add Zosyn Monitor renal function closely Wound culture - spec in lab per nursing PICC placement Consult social security benefits interviewer Thank you [id number] Patient seen and examined. Chart reviewed in detail. Case discussed with DIRECTOR BIOMEDICAL ENGINEERING. Agree with above plan. SHILPI CLARK APRN May 07, 2019 14:05 MILA AKHTAR MD May 07, 2019 20:35
[2019-05-07] MEDS: PIPERACILLIN/TAZOBACTAM 3.375 GM in IV NORMAL SALINE 50ML 50 ML IV SCH ×3 (14:23→23:10)
[2019-05-07] MEDS: VANCOMYCIN 1 GM in IV NORMAL SALINE 250ML 250 ML IV SCH (15:02)
[2019-05-07 15:06] VITALS: BP 143/69
--- NOTE | 2019-05-07 16:00 | CONS ---
DATE OF CONSULTATION: 05/07/2019 REFERRING PHYSICIAN: Dr. Paniagua. REASON FOR CONSULTATION: Infected below-knee amputation site. HISTORY OF PRESENT ILLNESS: This patient is a 63-year-old female with a history of having a diabetic ulcer and osteomyelitis of the right metatarsal joint for which she underwent an open ray amputation in October of 2018 along with a right superficial femoral artery and popliteal artery arthrectomy and angioplasty. She eventually underwent a right below knee amputation in November as the wound progressed. Cultures at that time grew Klebsiella oxytoca and penicillin sensitive Enterococcus faecalis. About 2 months later, she was readmitted for stump dehiscence, bone exposure and MRSA infection. She was taken to the OR and underwent an I and D of muscle and fascia with wound VAC placement. She completed a course of daptomycin and Invanz outpatient followed by doxycycline and Augmentin. She continued to follow with [facility]. The wound almost completely healed except for 2 pin size holes along the incisional line. An ultrasound in March showed mild soft tissue edema or cellulitis without focal fluid collection. The patient says she completed 2 rounds of Zyvox without improvement. Yesterday one of the pin size holes opened up and drained pus. An MRI revealed an anterior inferior right tibia soft tissue ulceration with sinus tract to the subjacent bone and associated bony changes consistent with acute osteomyelitis. A culture was taken. She was given a one-time dose of vancomycin. ID has been asked to consult for further antibiotic management. The patient says that she has been feeling well. She denies fevers, chills, sweats or body aches. She denies having any drainage of the right stump until yesterday nor any redness or swelling. She was seen by Dr. Godfrey and given three options for treatment. She does not want to undergo any further surgery and has opted for IV antibiotics in hopes of treating the infection and healing the wound completely. PAST MEDICAL HISTORY: As mentioned above, strep oralis bacteremia, diabetes mellitus type 2., hypothyroidism, hypertension, hyperlipidemia. PAST SURGICAL HISTORY: As mentioned above, right below-the knee amputation in 11/08/2018. SOCIAL HISTORY: The patient is and lives at home. Former smoker. FAMILY HISTORY: Positive for hypertension. ALLERGIES: SILVER. MEDICATIONS: One time dose of vancomycin. Other medications are available and have been reviewed on the DEC. PHYSICAL EXAMINATION: VITAL SIGNS: Temperature 97.5, blood pressure 131/51, heart rate 83, respiratory rate 16, pulse oximetry is 100% on room air. BMI 25. GENERAL: The patient is sitting on the side of the bed, alert and smiling. HEENT: Pupils equally round, reactive. Normal conjunctivae. Oral cavity: Pharynx is pink and moist. No thrush. NECK: Supple. LUNGS: Clear to auscultation. HEART: S1 and S2. ABDOMEN: Soft and nontender with bowel sounds present. EXTREMITIES: No gross edema or cyanosis. Right stump wound is currently packed. No surrounding redness (palpable bone at the base without significant cavity noted and wound culture taken per vascular). SKIN: Warm to touch. No signs of rash. NEUROLOGIC: Alert and oriented x 3. PERIPHERAL: IV looks okay. LABORATORY DATA: Recent WBC 5.6, hemoglobin 12.3, platelets 206,000. Sed rate 12. Creatinine 0.8, BUN is 24. Electrolytes are unremarkable. Glucose 133, total bilirubin 0.3, AST 13, ALT 24, albumin 3.5. Blood cultures are pending. MRI per HPI. IMPRESSION: 1. Nonhealing wound with acute osteomyelitis of right below-knee amputation. 2. History of Klebsiella, penicillin sensitive Enterococcus, and MRSA wound infection. 3. Diabetes mellitus type 2. 4. Peripheral arterial disease, status post previous history of revascularization in 10/2018. PLAN: The patient wants to avoid surgery and try another round of IV antibiotics. She understands the wound may not heal with antibiotics alone. Continue the vancomycin and add Zosyn. Monitor renal function closely. We will order anaerobic -- aerobic culture. Specimen is already in the lab. She will need a PICC placement. We will consult social media sr strategy manager. Thank you, Dr. Paniagua for asking us to participate in this patient's care. Should you have further questions or concerns, please call. MILA AKHTAR MD DR: KANE/robbi JOB#: [id number] / [id number] OLIVERIO
[2019-05-07 19:00] VITALS: BP 156/70
[2019-05-07] MEDS: ATORVASTATIN CALCIUM 20 MG TABLET PO SCH (20:52)
[2019-05-07 23:17] VITALS: BP 128/93
[2019-05-08 01:09] LABS: HEMOGLOBIN A1C 6.8 % (4.8-5.6)
[2019-05-08 03:06] VITALS: BP 107/64
[2019-05-08] MEDS: VANCOMYCIN 1 GM in IV NORMAL SALINE 250ML 250 ML IV SCH ×2 (03:06→15:30)
[2019-05-08] MEDS: PIPERACILLIN/TAZOBACTAM 3.375 GM in IV NORMAL SALINE 50ML 50 ML IV SCH ×4 (06:23→23:25)
[2019-05-08 07:00] VITALS: BP 137/68
[2019-05-08] MEDS: INSULIN LISPRO 300 UNITS/3 ML INSULN.PEN. SQ SCH ×3 (08:00→16:59)
[2019-05-08] MEDS: LOSARTAN POTASSIUM 25 MG TABLET. PO SCH (08:35)
[2019-05-08] MEDS: LEVOTHYROXINE 112 MCG TABLET PO SCH (08:35)
[2019-05-08] MEDS: ASPIRIN ENTERIC COATED 81 MG TABLET.DR. PO SCH (08:35)
[2019-05-08] MEDS: LACTOBACILLUS RHAMNOSUS GG 1 CAPSULE. PO SCH ×2 (08:35→21:03)
[2019-05-08] MEDS: metFORMIN 500 MG TABLET PO SCH ×2 (08:35→17:04)
--- NOTE | 2019-05-08 09:18 | PDOC ---
Infectious Disease Note Subjective Subjective Comfortable, denies pain/F/C?N/V/D ROS ROS per HPI Vital Sign Vital Signs Vital Signs Date Time Temp Pulse Resp B/P (MAP) Pulse Ox O2 Delivery O2 Flow Rate FiO2 05/08/19 08:35 81 137/68 05/08/19 07:00 98.2 15 96 Room Air 98.2 Physical Exam PHYSICAL EXAM GENERAL: Sitting the chair, alert, smiling HEENT: Pupils equally round, reactive. Normal conjunctivae. Oral cavity: Pharynx is pink and moist. No thrush. NECK: Supple. LUNGS: Clear to auscultation. HEART: S1 and S2. ABDOMEN: Soft and nontender with bowel sounds present. EXTREMITIES: No gross edema or cyanosis. Right stump wound is currently packed. No surrounding redness (palpable bone at the base without significant cavity noted and wound culture taken per vascular). SKIN: Warm to touch. No signs of rash. NEUROLOGIC: Alert and oriented x 3. PERIPHERAL: IV looks okay. Labs Lab Laboratory Tests Test 05/07/19 10:20 05/07/19 11:02 05/07/19 17:01 05/08/19 07:45 Erythrocyte Sedimentation Rate 12 (0-25) Hemoglobin A1c 6.8 % (4.8-5.6) Glucose (Fingerstick) 159 mg/dL (70-99) 124 mg/dL (70-99) 123 mg/dL (70-99) Micro Microbiology 05/06/19 Blood Culture - Preliminary, Resulted NO GROWTH AFTER 1 DAY Objective Assessment Nonhealing stump wound with acute osteomyelitis right BKA h/o Klebsiella, enterococcus (PCN-S) and MRSA wound infection DM PAD s/p revascularization, 10/2018 Plan Plan of Care Patient wants to avoid surgery and try another round of IV abx instead. She understands the wound may not heal with abx alone. Continue vancomycin and add Zosyn Monitor renal function closely. Today's labs pending f/ou wound cultures PICC placement Consult social media marketing analyst consulted Patient seen and examined. Chart reviewed in detail. Case discussed with COMPUTING TUTOR. Agree with above plan. SHILPI CLARK APRN May 08, 2019 09:18 MILA AKHTAR MD May 08, 2019 16:37
--- NOTE | 2019-05-08 10:11 | PDOC ---
PROGRESS NOTES Chief Complaint Chief Complaint OM RT stump BKA RT DM 2 good control History of Present Illness History of Present Illness NO pain, MRI proves OM ESR 12 NO fever, no leukocytosis MRI: Changes of right [id number] amputation with soft tissue ulceration at the anterior-inferior right tibia with sinus tract to the subjacent bone and associated bony changes is consistent with acute osteomyelitis. Dw ID Mid level Known to wound care pMG PLAn: WOund care wound vac per VAsc sx IV abx vanc zosyn per ID BS great Vitals Vitals Vital Signs Date Time Temp Pulse Resp B/P (MAP) Pulse Ox O2 Delivery O2 Flow Rate FiO2 05/08/19 08:35 81 137/68 05/08/19 07:00 98.2 15 96 Room Air 98.2 Physical Exam Physical Exam GENERAL: Sitting the chair, alert, smiling HEENT: Pupils equally round, reactive. Normal conjunctivae. Oral cavity: Pharynx is pink and moist. No thrush. NECK: Supple. LUNGS: Clear to auscultation. HEART: S1 and S2. ABDOMEN: Soft and nontender with bowel sounds present. EXTREMITIES: No gross edema or cyanosis. Right stump wound is currently packed. No surrounding redness (palpable bone at the base without significant cavity noted and wound culture taken per vascular). SKIN: Warm to touch. No signs of rash. NEUROLOGIC: Alert and oriented x 3. PERIPHERAL: IV looks okay. General: Alert, Oriented X3, Cooperative, No acute distress Heart: Regular rate, Normal S1, Normal S2, No murmurs Lungs: Clear, Other Abdomen: Normal bowel sounds, Soft, No tenderness Extremities: No clubbing, No cyanosis, No edema, Normal pulses Skin: No rashes, No breakdown, Other (rt bka stump, no open wounds or drainage) Labs LABS Laboratory Tests Test 05/07/19 10:20 05/07/19 11:02 05/07/19 17:01 05/08/19 07:45 Erythrocyte Sedimentation Rate 12 (0-25) Hemoglobin A1c 6.8 % (4.8-5.6) Glucose (Fingerstick) 159 mg/dL (70-99) 124 mg/dL (70-99) 123 mg/dL (70-99) Review of Systems Review of Systems A 14 point ROS was completed with the following noted as positive: Other systems reviewed and negative. \CONSTITUTIONAL: No fever or chills EYES: No recent changes SKIN: No rash or itching CARDIOVASCULAR: No chest pain, syncope, palpitations, or edema RESPIRATORY: No SOB or cough GASTROINTESTINAL: No nausea, vomiting or abdominal pain NEUROLOGICAL: No headaches or weakness ENDOCRINE: No cold or heat intolerance GENITOURINARY: No urgency or frequency of urination MUSCULOSKELETAL: No back pain or joint pain LYMPHATICS: No enlarged lymph nodes PSYCHIATRIC: No anxiety or depression Comment Review of Relevant I have reviewed the following items nikole (where applicable) has been applied. Labs Laboratory Tests Test 05/06/19 15:40 05/06/19 21:11 05/07/19 07:44 05/07/19 10:20 White Blood Count 5.6 x10^3/uL (4.0-11.0) Red Blood Count 4.37 x10^6/uL (3.50-5.40) Hemoglobin 12.3 g/dL (12.0-15.5) Hematocrit 37.5 % (36.0-47.0) Mean Corpuscular Volume 86 fL (79-100) Mean Corpuscular Hemoglobin 28 pg (25-35) Mean Corpuscular Hemoglobin Concent 33 g/dL (31-37) Red Cell Distribution Width 18.9 % (11.5-14.5) Platelet Count 206 x10^3/uL (140-400) Neutrophils (%) (Auto) 55 % (31-73) Lymphocytes (%) (Auto) 30 % (24-48) Monocytes (%) (Auto) 6 % (0-9) Eosinophils (%) (Auto) 8 % (0-3) Basophils (%) (Auto) 1 % (0-3) Neutrophils # (Auto) 3.1 x10^3/uL (1.8-7.7) Lymphocytes # (Auto) 1.7 x10^3/uL (1.0-4.8) Monocytes # (Auto) 0.4 x10^3/uL (0.0-1.1) Eosinophils # (Auto) 0.4 x10^3/uL (0.0-0.7) Basophils # (Auto) 0.1 x10^3/uL (0.0-0.2) Sodium Level 142 mmol/L (136-145) Potassium Level 4.3 mmol/L (3.5-5.1) Chloride Level 106 mmol/L (98-107) Carbon Dioxide Level 26 mmol/L (21-32) Anion Gap 10 (6-14) Blood Urea Nitrogen 24 mg/dL (7-20) Creatinine 0.8 mg/dL (0.6-1.0) Estimated GFR (Cockcroft-Gault) 72.4 BUN/Creatinine Ratio 30 (6-20) Glucose Level 152 mg/dL (70-99) Calcium Level 9.4 mg/dL (8.5-10.1) Total Bilirubin 0.3 mg/dL (0.2-1.0) Aspartate Amino Transf (AST/SGOT) 13 U/L (15-37) Alanine Aminotransferase (ALT/SGPT) 24 U/L (14-59) Alkaline Phosphatase 81 U/L (46-116) Total Protein 7.5 g/dL (6.4-8.2) Albumin 3.5 g/dL (3.4-5.0) Albumin/Globulin Ratio 0.9 (1.0-1.7) Glucose (Fingerstick) 150 mg/dL (70-99) 133 mg/dL (70-99) Erythrocyte Sedimentation Rate 12 (0-25) Hemoglobin A1c 6.8 % (4.8-5.6) Test 05/07/19 11:02 05/07/19 17:01 05/08/19 07:45 Glucose (Fingerstick) 159 mg/dL (70-99) 124 mg/dL (70-99) 123 mg/dL (70-99) Laboratory Tests Test 05/07/19 10:20 05/07/19 11:02 05/07/19 17:01 05/08/19 07:45 Erythrocyte Sedimentation Rate 12 (0-25) Hemoglobin A1c 6.8 % (4.8-5.6) Glucose (Fingerstick) 159 mg/dL (70-99) 124 mg/dL (70-99) 123 mg/dL (70-99) Microbiology 05/06/19 Blood Culture - Preliminary, Resulted NO GROWTH AFTER 1 DAY Medications Current Medications Vancomycin HCl 250 ml @ 250 mls/hr 1X STAT IV ; Start 05/06/19 at 14:50; Stop 05/06/19 at 15:49; Status UNV Vancomycin HCl 2 gm/Sodium Chloride 500 ml @ 250 mls/hr ONCE ONCE IV Last administered on 05/06/19 21:12; Start 05/06/19 at 15:15; Stop 05/06/19 at 17:14; Status DC Gadoterate Meglumine (Dotarem) 15 ml 1X ONCE IVP Last administered on 05/06/19 20:11; Start 05/06/19 at 19:00; Stop 05/06/19 at 19:01; Status DC Aspirin (Ecotrin) 81 mg DAILYWBKFT PO Last administered on 05/08/19 08:35; Start 05/07/19 at 08:00 Atorvastatin Calcium (Lipitor) 20 mg QHS PO Last administered on 05/07/19 20:52; Start 05/07/19 at 21:00 Acetaminophen/ Hydrocodone Bitart (Lortab 5/325) 1 tab PRN Q6HRS PRN PO MODERATE PAIN 4-6; Start 05/06/19 at 23:30; Stop 05/07/19 at 09:59; Status DC Lactobacillus Rhamnosus (Culturelle) 1 cap BID PO Last administered on 05/08/19 08:35; Start 05/07/19 at 09:00 Levothyroxine Sodium (Synthroid) 112 mcg DAILY07 PO Last administered on 05/08/19 08:35; Start 05/07/19 at 07:00 Losartan Potassium (Cozaar) 25 mg DAILY PO Last administered on 05/08/19 08:35; Start 05/07/19 at 09:00 Non-Formulary Medication (Canagliflozin (Invokana)) 300 mg DAILY PO Last administered on 05/08/19 08:34; Start 05/07/19 at 09:00 Metformin HCl (Glucophage) 1,000 mg BIDWMEALS PO Last administered on 05/08/19 08:35; Start 05/07/19 at 08:00 Insulin Human Lispro (HumaLOG) 0-9 UNITS TIDWMEALS SQ Last administered on 05/07/19 12:53; Start 05/07/19 at 12:00 Dextrose (Dextrose 50%-Water Syringe) 12.5 gm PRN Q15MIN PRN IV SEE COMMENTS; Start 05/07/19 at 10:00 Dextrose 250 ml PRN Q15MIN PRN IV SEE COMMENTS; Start 05/07/19 at 10:00 Acetaminophen/ Hydrocodone Bitart (Lortab 5/325) 1 tab PRN Q4HRS PRN PO MODERATE PAIN; Start 05/07/19 at 10:00 Morphine Sulfate (Morphine Sulfate) 2 mg PRN Q2HR PRN IV PAIN; Start 05/07/19 at 10:00 Zolpidem Tartrate (Ambien) 5 mg PRN QHS PRN PO INSOMNIA; Start 05/07/19 at 10:00 Calcium Carbonate/ Glycine (Tums) 500 mg PRN AFTMEALHC PRN PO INDIGESTION; Start 05/07/19 at 10:00 Vancomycin HCl (Vanco Per Pharmacy) 1 each PRN DAILY PRN MC SEE COMMENTS Last administered on 05/07/19at 13:51; Start 05/07/19 at 13:15 Piperacillin Sod/ Tazobactam Sod 3.375 gm/Sodium Chloride 50 ml @ 100 mls/hr Q6HRS IV Last administered on 05/08/19at 06:23; Start 05/07/19 at 14:00 Vancomycin HCl 1 gm/Sodium Chloride 250 ml @ 250 mls/hr Q12H IV Last administered on 05/08/19at 03:06; Start 05/07/19 at 14:00 Vancomycin HCl (Vancomycin Trough Level) 1 each 1X ONCE MC ; Start 05/09/19 at 01:30; Stop 05/09/19 at 01:31 Active Scripts Active Culturelle (Lactobacillus Rhamnosus Gg) 1 Each Cap.sprink 1 Cap PO BID 7 Days Hydrocodone-Apap 5-325 (Hydrocodone Bit/Acetaminophen) 1 Tab Tablet 1 Tab PO PRN Q6HRS PRN 6 Days Aspirin Ec (Aspirin) 81 Mg Tablet.dr 81 Mg PO DAILYWBKFT 30 Days Atorvastatin Calcium 40 Mg Tablet 20 Mg PO QHS Levothyroxine Sodium 112 Mcg Tablet 112 Mcg PO DAILY07 Reported Metformin Hcl 1,000 Mg Tablet 1,000 Mg PO BID Invokana (Canagliflozin) 300 Mg Tablet 300 Mg PO DAILY Losartan Potassium 50 Mg Tablet 25 Mg PO DAILY Vitals/I & O Vital Sign - Last 24 Hours 05/07/19 05/07/19 05/07/19 05/07/19 11:17 15:06 19:00 20:00 Temp 97.5 98.5 98.2 97.5 98.5 98.2 Pulse 83 81 89 Resp 16 17 16 B/P (MAP) 131/51 (77) 143/69 (93) 156/70 (98) Pulse Ox 97 98 O2 Delivery Room Air Room Air Room Air Room Air 05/07/19 05/08/19 05/08/19 05/08/19 23:17 03:06 07:00 08:35 Temp 98.6 98.2 98.2 98.6 98.2 98.2 Pulse 97 81 81 81 Resp 16 16 15 B/P (MAP) 128/93 (105) 107/64 (78) 137/68 (91) 137/68 Pulse Ox 96 97 96 O2 Delivery Room Air Room Air Room Air Intake and Output 05/07/19 05/07/19 05/08/19 15:00 23:00 07:00 Intake Total 370 ml 870 ml 450 ml Balance 370 ml 870 ml 450 ml BRADEN PAREDES MD May 08, 2019 10:11
[2019-05-08 11:50] VITALS: BP 118/65
[2019-05-08 13:11] LABS: CREATININE 0.9 mg/dL (0.6-1.0); GFR 63.2
[2019-05-08] MEDS: VANCOMYCIN PER PHARMACY MC PRN (13:27)
[2019-05-08 15:30] VITALS: BP 128/68
[2019-05-08 19:00] VITALS: BP 146/77
[2019-05-08] MEDS: ATORVASTATIN CALCIUM 20 MG TABLET PO SCH (21:02)
[2019-05-08 23:00] VITALS: BP 140/78
[2019-05-09 01:30] LABS: BASO % 1 % (0-3); EOS # 0.4 x10^3/uL (0.0-0.7); EOS % 10 % (0-3); HEMATOCRIT 36.1 % (36.0-47.0); HEMOGLOBIN 11.9 g/dL (12.0-15.5); LYMPH # 1.4 x10^3/uL (1.0-4.8); LYMPH % 35 % (24-48); MEAN CORPUSCULAR HEMOGLOBIN 28 pg (25-35); MEAN CORPUSCULAR HGB CONC 33 g/dL (31-37); MEAN CORPUSCULAR VOLUME 86 fL (79-100); MONO # 0.5 x10^3/uL (0.0-1.1); MONO % 11 % (0-9); NEUT # 1.7 x10^3/uL (1.8-7.7); NEUT % 43 % (31-73); PLATELET COUNT 183 x10^3/uL (140-400); RED CELL DISTRIBUTION WIDTH 19.2 % (11.5-14.5)
[2019-05-09 01:34] LABS: CALCIUM 9.1 mg/dL (8.5-10.1); CREATININE 0.9 mg/dL (0.6-1.0); GFR 63.2; POTASSIUM 4.4 mmol/L (3.5-5.1)
[2019-05-09 01:41] LABS: VANC TR 19.9 mcg/mL (10.0-20.0)
[2019-05-09] MEDS: VANCOMYCIN PER PHARMACY MC PRN (02:37)
--- NOTE | 2019-05-09 02:38 | NUR ---
Pharmacy Vancomycin Dosing Note S:Consulted to monitor and dose vancomycin started 05/07/19. O:CHAVO GAYLE is a 63 year old F with Osteomyelitis . Height: 5 feet, 9 inches Weight: 76.078991 kg [place] Body Weight: 66.20 Adjusted Body Weight: 70.12 Dosing Weight: Actual Other Antibiotics: ZOSYN LABS: Last BUN: 24 Last Creatinine: 0.9 Creatinine Clearance: 80 mL/min Last WBC: 5.6 Last Procalcitonin: NO Tmax (past 24 hours): 97.5 L Microbiology: 05/07 PENDING I/O: /3 Drug Levels: Last Trough level: 19.9 on 05/09/19 at 0130 Last dose given 05/06/19 at 2112 Vancomycin Dosing: Loading Dose: 2000 mg x1 Dosing Weight: Actual Target Trough: 15-20 A: Based on: TROUGH P: 1. Continue Vancomycin 1000 mg IV q12h 2. Follow up Trough level IF NEEDED 3. Pharmacy will continue to monitor, follow and adjust therapy as needed. WOLF MORRELL RPH, 05/09/19 0238 Signed: 05/09/19 at 023 by WOLF MORRELL RPH PHA
[2019-05-09] MEDS: VANCOMYCIN 1 GM in IV NORMAL SALINE 250ML 250 ML IV SCH ×2 (02:40→14:41)
[2019-05-09 02:41] VITALS: BP 133/86
[2019-05-09] MEDS: PIPERACILLIN/TAZOBACTAM 3.375 GM in IV NORMAL SALINE 50ML 50 ML IV SCH ×3 (06:10→17:04)
[2019-05-09 07:13] VITALS: BP 139/67
[2019-05-09] MEDS: INSULIN LISPRO 300 UNITS/3 ML INSULN.PEN. SQ SCH ×3 (07:46→16:50)
[2019-05-09] MEDS: ASPIRIN ENTERIC COATED 81 MG TABLET.DR. PO SCH (07:48)
[2019-05-09] MEDS: metFORMIN 500 MG TABLET PO SCH ×2 (07:48→16:22)
[2019-05-09] MEDS: LEVOTHYROXINE 112 MCG TABLET PO SCH (07:48)
--- NOTE | 2019-05-09 08:17 | NUR ---
CATHY consulted for [facility] abx. Chart reviewed and pt lives at home with family. Pt was on service with [facility], , fax: [phone] and [facility], phone: [phone], fax: [phone]. Pt also has full coverage for home infusion. CATHY will continue to follow. Addendum: 05/09/19 at 1518 by JENIFFER MORGAN Clinicals faxed to [facility] and [facility]. Discussed with JESSICA.
[2019-05-09] MEDS: LACTOBACILLUS RHAMNOSUS GG 1 CAPSULE. PO SCH ×2 (08:25→21:23)
[2019-05-09] MEDS: LOSARTAN POTASSIUM 25 MG TABLET. PO SCH (08:25)
--- NOTE | 2019-05-09 09:45 | PDOC ---
PROGRESS NOTES Chief Complaint Chief Complaint OM RT stump BKA RT DM 2 soft tissue ulceration at the anterior-inferior right tibia with sinus tract to the subjacent bone and associated bony changes is consistent with acute osteomyelitis. Open wound right BKA stump down to bone. Discussed options for care prefers Wound vac and Antibiotic therapy. if therapy fails then we may need to proceed with surgical intervention. She expressed understanding of the plan of care. 37 min pt exam, chart review, > 50% of time spent with exam, chart review, pt care coordination History of Present Illness History of Present Illness NO pain, MRI proves OM ESR 12 NO fever, no leukocytosis MRI: Changes of right qbbqz-ark-nquk amputation with soft tissue ulceration at the anterior-inferior right tibia with sinus tract to the subjacent bone and associated bony changes is consistent with acute osteomyelitis. Dw ID Mid level Known to wound care pMG PLAn: WOund care wound vac per [facility] sx Continue vancomycin and add Zosyn BS great Vitals Vitals Vital Signs Date Time Temp Pulse Resp B/P (MAP) Pulse Ox O2 Delivery O2 Flow Rate FiO2 05/09/19 08:25 75 139/67 05/09/19 08:00 Room Air 05/09/19 07:13 98.0 16 95 98.0 Physical Exam Physical Exam GENERAL: Sitting the bed, alert, HEENT: Pupils equally round, reactive. Normal conjunctivae. Oral cavity: Pharynx is pink and moist. No thrush. NECK: Supple. LUNGS: Clear to auscultation. HEART: S1 and S2. ABDOMEN: Soft and nontender with bowel sounds present. EXTREMITIES: No gross edema or cyanosis. Right stump wound is currently packed. No surrounding redness (palpable bone at the base without significant cavity noted and wound culture taken per vascular). SKIN: Warm to touch. No signs of rash. NEUROLOGIC: Alert and oriented x 3. PERIPHERAL: IV looks okay. General: Alert, Oriented X3, Cooperative, No acute distress Heart: Regular rate, Normal S1, Normal S2, No murmurs Lungs: Clear, Other Abdomen: Normal bowel sounds, Soft, No tenderness Extremities: No clubbing, No cyanosis, No edema, Normal pulses Skin: No rashes, No breakdown, Other (rt bka stump, no open wounds or drainage) Labs LABS REG DR: BRIT BOWMAN III DO : 1955 BED: 1 DIS: STATUS: ADM IN TLOC: SPEC #: [id number] DANN: 05/06/19 STATUS: RES REQ #: [id number] RECD: 05/06/[address]: MARLEE ALARCON MD SOURCE: BLOOD ENTR: 05/06/19-1500 [facility] DR: BRIT BOWMAN III, DO [facility]: SONJA SILVA MD, SHAWN P MD MACKAY, GLENN A MD ORDERED: BCULT Procedure Result BLOOD CULTURE Preliminary NO GROWTH AFTER 2 DAYS : 1955 LOCATION: [address] [place] [address] AGE: 63 SEX: F EXAM STATUS: ADM IN ORD. PHYSICIAN: MARLEE ALARCON MD REASON: Open surgical site right BKA, 15mL DOTAREM PROCEDURE: LOWER EXT NON JOINT WO/W RT EXAM: MRI RIGHT KNEE WITHOUT AND WITH IV CONTRAST DATE: 05/06/2019 3:04 PM CLINICAL INDICATION: COMPARISON: None. TECHNIQUE: Multiplanar, multisequence MRI of the right knee was performed before and after the administration of intravenous gadolinium contrast. FINDINGS: Changes of qvqaf-bna-gsjr amputation are seen. Changes of soft tissue ulceration at the anterior, inferior margin of the amputation site with tract extending to the subjacent bone. There is mild confluent loss of the normal marrow fat with cortical erosion immediately subjacent to the ulceration consistent with acute osteomyelitis. Diffuse edema of the musculature, possibly postsurgical or myositis. Diffuse soft tissue edema is nonspecific, though cellulitis would have similar appearance. Limited evaluation of the knee joint. IMPRESSION: Changes of right jmumn-ptx-mwmx amputation with soft tissue ulceration at the anterior-inferior right tibia with sinus tract to the subjacent bone and associated bony changes is consistent with acute osteomyelitis. Electronically signed by: Brian Greenberg MD (05/06/2019 11:35 PM) [id number] DICTATED and SIGNED BY: BRIAN GREENBERG MD DATE: 05/06/19 2337 Laboratory Tests Test 05/08/19 12:34 05/08/19 12:46 05/08/19 16:11 05/08/19 21:02 Creatinine 0.9 mg/dL (0.6-1.0) Estimated GFR (Cockcroft-Gault) 63.2 Glucose (Fingerstick) 110 mg/dL (70-99) 153 mg/dL (70-99) 103 mg/dL (70-99) Test 05/09/19 01:15 05/09/19 07:15 White Blood Count 4.0 x10^3/uL (4.0-11.0) Red Blood Count 4.20 x10^6/uL (3.50-5.40) Hemoglobin 11.9 g/dL (12.0-15.5) Hematocrit 36.1 % (36.0-47.0) Mean Corpuscular Volume 86 fL (79-100) Mean Corpuscular Hemoglobin 28 pg (25-35) Mean Corpuscular Hemoglobin Concent 33 g/dL (31-37) Red Cell Distribution Width 19.2 % (11.5-14.5) Platelet Count 183 x10^3/uL (140-400) Neutrophils (%) (Auto) 43 % (31-73) Lymphocytes (%) (Auto) 35 % (24-48) Monocytes (%) (Auto) 11 % (0-9) Eosinophils (%) (Auto) 10 % (0-3) Basophils (%) (Auto) 1 % (0-3) Neutrophils # (Auto) 1.7 x10^3/uL (1.8-7.7) Lymphocytes # (Auto) 1.4 x10^3/uL (1.0-4.8) Monocytes # (Auto) 0.5 x10^3/uL (0.0-1.1) Eosinophils # (Auto) 0.4 x10^3/uL (0.0-0.7) Basophils # (Auto) 0.0 x10^3/uL (0.0-0.2) Sodium Level 144 mmol/L (136-145) Potassium Level 4.4 mmol/L (3.5-5.1) Chloride Level 108 mmol/L (98-107) Carbon Dioxide Level 27 mmol/L (21-32) Anion Gap 9 (6-14) Blood Urea Nitrogen 21 mg/dL (7-20) Creatinine 0.9 mg/dL (0.6-1.0) Estimated GFR (Cockcroft-Gault) 63.2 Glucose Level 130 mg/dL (70-99) Calcium Level 9.1 mg/dL (8.5-10.1) Vancomycin Level Trough 19.9 mcg/mL (10.0-20.0) Vancomycin Last Dose Date Vancomycin Last Dose Time Glucose (Fingerstick) 137 mg/dL (70-99) Assessment and Plan Assessmemt and Plan Problems Medical Problems: (1) DM2 (diabetes mellitus, type 2) Status: Chronic (2) Non-healing wound of amputation stump Status: Chronic (3) Osteomyelitis of right lower extremity Status: Acute (4) PAD (peripheral artery disease) Status: Chronic soft tissue ulceration at the anterior-inferior right tibia with sinus tract to the subjacent bone and associated bony changes is consistent with acute osteomyelitis. Comment Review of Relevant I have reviewed the following items nikole (where applicable) has been applied. Labs Laboratory Tests Test 05/07/19 10:20 05/07/19 11:02 05/07/19 17:01 05/08/19 07:45 Erythrocyte Sedimentation Rate 12 (0-25) Hemoglobin A1c 6.8 % (4.8-5.6) Glucose (Fingerstick) 159 mg/dL (70-99) 124 mg/dL (70-99) 123 mg/dL (70-99) Test 05/08/19 12:34 05/08/19 12:46 05/08/19 16:11 05/08/19 21:02 Creatinine 0.9 mg/dL (0.6-1.0) Estimated GFR (Cockcroft-Gault) 63.2 Glucose (Fingerstick) 110 mg/dL (70-99) 153 mg/dL (70-99) 103 mg/dL (70-99) Test 05/09/19 01:15 05/09/19 07:15 White Blood Count 4.0 x10^3/uL (4.0-11.0) Red Blood Count 4.20 x10^6/uL (3.50-5.40) Hemoglobin 11.9 g/dL (12.0-15.5) Hematocrit 36.1 % (36.0-47.0) Mean Corpuscular Volume 86 fL (79-100) Mean Corpuscular Hemoglobin 28 pg (25-35) Mean Corpuscular Hemoglobin Concent 33 g/dL (31-37) Red Cell Distribution Width 19.2 % (11.5-14.5) Platelet Count 183 x10^3/uL (140-400) Neutrophils (%) (Auto) 43 % (31-73) Lymphocytes (%) (Auto) 35 % (24-48) Monocytes (%) (Auto) 11 % (0-9) Eosinophils (%) (Auto) 10 % (0-3) Basophils (%) (Auto) 1 % (0-3) Neutrophils # (Auto) 1.7 x10^3/uL (1.8-7.7) Lymphocytes # (Auto) 1.4 x10^3/uL (1.0-4.8) Monocytes # (Auto) 0.5 x10^3/uL (0.0-1.1) Eosinophils # (Auto) 0.4 x10^3/uL (0.0-0.7) Basophils # (Auto) 0.0 x10^3/uL (0.0-0.2) Sodium Level 144 mmol/L (136-145) Potassium Level 4.4 mmol/L (3.5-5.1) Chloride Level 108 mmol/L (98-107) Carbon Dioxide Level 27 mmol/L (21-32) Anion Gap 9 (6-14) Blood Urea Nitrogen 21 mg/dL (7-20) Creatinine 0.9 mg/dL (0.6-1.0) Estimated GFR (Cockcroft-Gault) 63.2 Glucose Level 130 mg/dL (70-99) Calcium Level 9.1 mg/dL (8.5-10.1) Vancomycin Level Trough 19.9 mcg/mL (10.0-20.0) Vancomycin Last Dose Date Vancomycin Last Dose Time Glucose (Fingerstick) 137 mg/dL (70-99) Laboratory Tests Test 05/08/19 12:34 05/08/19 12:46 05/08/19 16:11 05/08/19 21:02 Creatinine 0.9 mg/dL (0.6-1.0) Estimated GFR (Cockcroft-Gault) 63.2 Glucose (Fingerstick) 110 mg/dL (70-99) 153 mg/dL (70-99) 103 mg/dL (70-99) Test 05/09/19 01:15 05/09/19 07:15 White Blood Count 4.0 x10^3/uL (4.0-11.0) Red Blood Count 4.20 x10^6/uL (3.50-5.40) Hemoglobin 11.9 g/dL (12.0-15.5) Hematocrit 36.1 % (36.0-47.0) Mean Corpuscular Volume 86 fL (79-100) Mean Corpuscular Hemoglobin 28 pg (25-35) Mean Corpuscular Hemoglobin Concent 33 g/dL (31-37) Red Cell Distribution Width 19.2 % (11.5-14.5) Platelet Count 183 x10^3/uL (140-400) Neutrophils (%) (Auto) 43 % (31-73) Lymphocytes (%) (Auto) 35 % (24-48) Monocytes (%) (Auto) 11 % (0-9) Eosinophils (%) (Auto) 10 % (0-3) Basophils (%) (Auto) 1 % (0-3) Neutrophils # (Auto) 1.7 x10^3/uL (1.8-7.7) Lymphocytes # (Auto) 1.4 x10^3/uL (1.0-4.8) Monocytes # (Auto) 0.5 x10^3/uL (0.0-1.1) Eosinophils # (Auto) 0.4 x10^3/uL (0.0-0.7) Basophils # (Auto) 0.0 x10^3/uL (0.0-0.2) Sodium Level 144 mmol/L (136-145) Potassium Level 4.4 mmol/L (3.5-5.1) Chloride Level 108 mmol/L (98-107) Carbon Dioxide Level 27 mmol/L (21-32) Anion Gap 9 (6-14) Blood Urea Nitrogen 21 mg/dL (7-20) Creatinine 0.9 mg/dL (0.6-1.0) Estimated GFR (Cockcroft-Gault) 63.2 Glucose Level 130 mg/dL (70-99) Calcium Level 9.1 mg/dL (8.5-10.1) Vancomycin Level Trough 19.9 mcg/mL (10.0-20.0) Vancomycin Last Dose Date Vancomycin Last Dose Time Glucose (Fingerstick) 137 mg/dL (70-99) Microbiology 05/06/19 Blood Culture - Preliminary, Resulted NO GROWTH AFTER 2 DAYS Medications Current Medications Vancomycin HCl 250 ml @ 250 mls/hr 1X STAT IV ; Start 05/06/19 at 14:50; Stop 05/06/19 at 15:49; Status UNV Vancomycin HCl 2 gm/Sodium Chloride 500 ml @ 250 mls/hr ONCE ONCE IV Last administered on 05/06/19at 21:12; Start 05/06/19 at 15:15; Stop 05/06/19 at 17:14; Status DC Gadoterate Meglumine (Dotarem) 15 ml 1X ONCE IVP Last administered on 05/06/19at 20:11; Start 05/06/19 at 19:00; Stop 05/06/19 at 19:01; Status DC Aspirin (Ecotrin) 81 mg DAILYWBKFT PO Last administered on 05/09/19at 07:48; Start 05/07/19 at 08:00 Atorvastatin Calcium (Lipitor) 20 mg QHS PO Last administered on 05/08/19 21:02; Start 05/07/19 at 21:00 Acetaminophen/ Hydrocodone Bitart (Lortab 5/325) 1 tab PRN Q6HRS PRN PO MODERATE PAIN 4-6; Start 05/06/19 at 23:30; Stop 05/07/19 at 09:59; Status DC Lactobacillus Rhamnosus (Culturelle) 1 cap BID PO Last administered on 05/09/19 08:25; Start 05/07/19 at 09:00 Levothyroxine Sodium (Synthroid) 112 mcg DAILY07 PO Last administered on 05/09/19 07:48; Start 05/07/19 at 07:00 Losartan Potassium (Cozaar) 25 mg DAILY PO Last administered on 05/09/19 08:25; Start 05/07/19 at 09:00 Non-Formulary Medication (Canagliflozin (Invokana)) 300 mg DAILY PO Last administered on 05/09/19 08:26; Start 05/07/19 at 09:00 Metformin HCl (Glucophage) 1,000 mg BIDWMEALS PO Last administered on 05/09/19 07:48; Start 05/07/19 at 08:00 Insulin Human Lispro (HumaLOG) 0-9 UNITS TIDWMEALS SQ Last administered on 05/07/19at 12:53; Start 05/07/19 at 12:00 Dextrose (Dextrose 50%-Water Syringe) 12.5 gm PRN Q15MIN PRN IV SEE COMMENTS; Start 05/07/19 at 10:00 Dextrose 250 ml PRN Q15MIN PRN IV SEE COMMENTS; Start 05/07/19 at 10:00 Acetaminophen/ Hydrocodone Bitart (Lortab 5/325) 1 tab PRN Q4HRS PRN PO M ODERATE PAIN; Start 05/07/19 at 10:00 Morphine Sulfate (Morphine Sulfate) 2 mg PRN Q2HR PRN IV PAIN; Start 05/07/19 at 10:00 Zolpidem Tartrate (Ambien) 5 mg PRN QHS PRN PO INSOMNIA; Start 05/07/19 at 10:00 Calcium Carbonate/ Glycine (Tums) 500 mg PRN AFTMEALHC PRN PO INDIGESTION; Start 05/07/19 at 10:00 Vancomycin HCl (Vanco Per Pharmacy) 1 each PRN DAILY PRN MC SEE COMMENTS Last a dministered on 05/09/19at 02:37; Start 05/07/19 at 13:15 Piperacillin Sod/ Tazobactam Sod 3.375 gm/Sodium Chloride 50 ml @ 100 mls/hr Q6HRS IV Last administered on 05/09/19at 06:10; Start 05/07/19 at 14:00 Vancomycin HCl 1 gm/Sodium Chloride 250 ml @ 250 mls/hr Q12H IV Last administered on 05/09/19at 02:40; Start 05/07/19 at 14:00 Vancomycin HCl (Vancomycin Trough Level) 1 each 1X ONCE MC Last administered on 05/09/19at 01:18; Start 05/09/19 at 01:30; Stop 05/09/19 at 01:31; Status DC Active Scripts Active Culturelle (Lactobacillus Rhamnosus Gg) 1 Each Cap.sprink 1 Cap PO BID 7 Days Hydrocodone-Apap 5-325 (Hydrocodone Bit/Acetaminophen) 1 Tab Tablet 1 Tab PO PRN Q6HRS PRN 6 Days Aspirin Ec (Aspirin) 81 Mg Tablet.dr 81 Mg PO DAILYWBKFT 30 Days Atorvastatin Calcium 40 Mg Tablet 20 Mg PO QHS Levothyroxine Sodium 112 Mcg Tablet 112 Mcg PO DAILY07 Reported Metformin Hcl 1,000 Mg Tablet 1,000 Mg PO BID Invokana (Canagliflozin) 300 Mg Tablet 300 Mg PO DAILY Losartan Potassium 50 Mg Tablet 25 Mg PO DAILY Vitals/I & O Vital Sign - Last 24 Hours 05/08/19 05/08/19 05/08/19 05/08/19 11:50 15:30 19:00 20:00 Temp 98.0 98.0 97.9 98.0 98.0 97.9 Pulse 81 77 81 Resp 17 16 18 B/P (MAP) 118/65 (82) 128/68 (88) 146/77 (100) Pulse Ox 96 99 98 O2 Delivery Room Air Room Air Room Air Room Air 05/08/19 05/09/19 05/09/19 05/09/19 23:00 02:41 07:13 08:00 Temp 98.0 97.8 98.0 98.0 97.8 98.0 Pulse 73 70 75 Resp 16 16 16 B/P (MAP) 140/78 (98) 133/86 (102) 139/67 (91) Pulse Ox 98 98 95 O2 Delivery Room Air Room Air Room Air Room Air 05/09/19 08:25 Pulse 75 B/P (MAP) 139/67 Intake and Output 05/08/19 05/08/19 05/09/19 14:59 22:59 06:59 Intake Total 120 ml 650 ml 250 ml Balance 120 ml 650 ml 250 ml OMAR DUGAN MD May 09, 2019 09:45
--- NOTE | 2019-05-09 10:01 | PDOC ---
Provider Note Provider Note Vascular S: Patient without complaints. Denies any right stump pain. Denies any nausea or vomiting, tolerating diet. PICC planned for today. O: Awake and alert VSS, afebrile HRR Non-labored respirations Right stump dressing dry. Removed, packing in place. Surrounding erythema and swelling minimal, improved. MRI: Changes of right dnqkd-mur-zzpk amputation with soft tissue ulceration at the anterior-inferior right tibia with sinus tract to the subjacent bone and associated bony changes is consistent with acute osteomyelitis. A/P: Atherosclerosis right lower extremity, s/p right BKA Open wound right BKA stump down to bone. Discussed options for care per Dr. Godfrey with the patient, at this time the patient prefers Wound vac and Antibiotic therapy. Discussed with patient that if therapy fails then we may need to proceed with surgical intervention. She expressed understanding of the plan of care. PICC planned for today. Antibiotics per ID. Continue wound vac therapy, follow up weekly in C. Will continue to monitor. If therapy fails then may proceed with surgical intervention. Continue Aspirin therapy. Follow up with Dr. William 05/27 11:50 SS for discharge planning, home vac and antibiotics. Will follow peripherally. CHARLI KRUGER APRN May 09, 2019 10:01
--- NOTE | 2019-05-09 10:02 | PDOC ---
Infectious Disease Note Subjective Subjective Doing alright No complaints/concerns voiced Remains afebrile Vital Sign Vital Signs Vital Signs Date Time Temp Pulse Resp B/P (MAP) Pulse Ox O2 Delivery O2 Flow Rate FiO2 05/09/19 08:25 75 139/67 05/09/19 08:00 Room Air 05/09/19 07:13 98.0 16 95 98.0 Physical Exam PHYSICAL EXAM GENERAL: Lying down, alert, NAD HEENT: Pupils equally round, reactive. Normal conjunctivae. Oral cavity: Pharynx is pink and moist. No thrush. NECK: Supple. LUNGS: Clear to auscultation. HEART: S1 and S2. ABDOMEN: Soft and nontender with bowel sounds present. EXTREMITIES: No gross edema or cyanosis. Right stump wound bandaged - clean with nugauze packing - no gross erythema or warmth SKIN: Warm to touch. No signs of rash. NEUROLOGIC: Alert and oriented x 3. PICC RUE - clean Labs Lab Laboratory Tests Test 05/08/19 12:34 05/08/19 12:46 05/08/19 16:11 05/08/19 21:02 Creatinine 0.9 mg/dL (0.6-1.0) Estimated GFR (Cockcroft-Gault) 63.2 Glucose (Fingerstick) 110 mg/dL (70-99) 153 mg/dL (70-99) 103 mg/dL (70-99) Test 05/09/19 01:15 05/09/19 07:15 White Blood Count 4.0 x10^3/uL (4.0-11.0) Red Blood Count 4.20 x10^6/uL (3.50-5.40) Hemoglobin 11.9 g/dL (12.0-15.5) Hematocrit 36.1 % (36.0-47.0) Mean Corpuscular Volume 86 fL (79-100) Mean Corpuscular Hemoglobin 28 pg (25-35) Mean Corpuscular Hemoglobin Concent 33 g/dL (31-37) Red Cell Distribution Width 19.2 % (11.5-14.5) Platelet Count 183 x10^3/uL (140-400) Neutrophils (%) (Auto) 43 % (31-73) Lymphocytes (%) (Auto) 35 % (24-48) Monocytes (%) (Auto) 11 % (0-9) Eosinophils (%) (Auto) 10 % (0-3) Basophils (%) (Auto) 1 % (0-3) Neutrophils # (Auto) 1.7 x10^3/uL (1.8-7.7) Lymphocytes # (Auto) 1.4 x10^3/uL (1.0-4.8) Monocytes # (Auto) 0.5 x10^3/uL (0.0-1.1) Eosinophils # (Auto) 0.4 x10^3/uL (0.0-0.7) Basophils # (Auto) 0.0 x10^3/uL (0.0-0.2) Sodium Level 144 mmol/L (136-145) Potassium Level 4.4 mmol/L (3.5-5.1) Chloride Level 108 mmol/L (98-107) Carbon Dioxide Level 27 mmol/L (21-32) Anion Gap 9 (6-14) Blood Urea Nitrogen 21 mg/dL (7-20) Creatinine 0.9 mg/dL (0.6-1.0) Estimated GFR (Cockcroft-Gault) 63.2 Glucose Level 130 mg/dL (70-99) Calcium Level 9.1 mg/dL (8.5-10.1) Vancomycin Level Trough 19.9 mcg/mL (10.0-20.0) Vancomycin Last Dose Date Vancomycin Last Dose Time Glucose (Fingerstick) 137 mg/dL (70-99) Micro Microbiology 05/06/19 Blood Culture - Preliminary, Resulted NO GROWTH AFTER 2 DAY Objective Assessment Nonhealing stump wound with acute osteomyelitis right BKA h/o Klebsiella, enterococcus (PCN-S) and MRSA wound infection DM PAD s/p revascularization, 10/2018 Plan Plan of Care Patient wants to avoid surgery and try another round of IV abx instead. She understands the wound may not heal with abx alone. Continue vancomycin and add Zosyn for now Trough 19.9 Monitor renal function closely. Wound cultures still pending. D/w micro Consult social media senior associate consulted D/w Attending Co-Sign Attending Co-Sign The patient was seen and interviewed as well as examined at the bedside. The chart was reviewed. The case was discussed. Agree with the plan of care. SHILPI CLARK INSPECTOR [employer] CARRIER May 09, 2019 10:02 WILLIE MANN MD May 09, 2019 14:51
--- NOTE | 2019-05-09 10:41 | NUR ---
IP: Pt admitted with BKA stump wound. Pt has a hx of mrsa in that wound on 03/02/19. Pt to be in contact precautions.
[2019-05-09 11:00] VITALS: BP 129/61
[2019-05-09] MEDS ORDERED: LIDOCAINE WITH 8.4% SOD BICARB 3 ML DISP.SYRIN. ONE (13:40)
[2019-05-09] MEDS ORDERED: LIDOCAINE WITH 8.4% SOD BICARB 3 ML DISP.SYRIN. INJ ONE (14:15)
[2019-05-09 15:05] VITALS: BP 125/68
--- NOTE | 2019-05-09 16:42 | RAD ---
Exam: Fluoroscopic and ultrasound guided right percutaneous inserted central venous catheter placement 05/09/2019 4:38 PM .Indication: termite treater helper IV antibiotics. Technique: Informed oral and written consent were obtained. The right upper extremity was prepped and draped using sterile barrier technique. All elements of maximal sterile barrier technique including the use of a cap, mask, sterile gown, sterile gloves, large sterile sheet, appropriate hand hygiene, and 2% chlorhexidine for cutaneous antisepsis (or acceptable alternative antiseptic per current guidelines) were followed for this procedure.. Real-time ultrasound demonstrated a patent right basilic vein. The right upper extremity was prepped and draped in usual sterile fashion. 1% lidocaine used for local anesthesia. Using real-time ultrasound guidance the access needle percutaneously punctured the selected vein. Reference ultrasound images were saved to the medical record. A guidewire was advanced through the needle to the cavoatrial junction, and a peel-away sheath placed. The catheter was cut to length and inserted through the peel-away sheath. The final position of the catheter was confirmed by fluoroscopy, with tip at the cavoatrial junction. The wire and sheath were removed, and the catheter secured in place, and a sterile dressing was applied. Catheter was found to flush and aspirate normally. No immediate complications are identified. FLUORO TIME: 0.2 DOSE AREA PRODUCT: 0.2 Gycm2 Impression: Ultrasound and fluoroscopically guided placement of a right upper extremity PICC line.
--- NOTE | 2019-05-09 17:34 | NUR ---
Wound Care Wound care follow up for right BKA wound. Pt is a current pt that was admitted from clinic last week. Cleansed wound and applied wound vac with campos foam (pt is allergic to silver) with ostomy ring to roxane-wound. Vac set to 125 mmHg continuous pressure with good seal obtained. No other wounds noted on full skin inspection. WC will follow up on Thursday for vac dressing change. Please notify C if pt is discharging so we may place a home vac.
[2019-05-09 19:00] VITALS: BP 138/57
[2019-05-09] MEDS: ATORVASTATIN CALCIUM 20 MG TABLET PO SCH (21:23)
[2019-05-09 23:00] VITALS: BP 154/72
[2019-05-10] MEDS: PIPERACILLIN/TAZOBACTAM 3.375 GM in IV NORMAL SALINE 50ML 50 ML IV SCH ×3 (00:01→18:16)
[2019-05-10] MEDS: VANCOMYCIN 1 GM in IV NORMAL SALINE 250ML 250 ML IV SCH ×2 (02:18→15:08)
[2019-05-10 03:00] VITALS: BP 144/73
[2019-05-10 07:00] VITALS: BP 157/77
[2019-05-10] MEDS: metFORMIN 500 MG TABLET PO SCH ×2 (08:00→16:44)
[2019-05-10] MEDS: LOSARTAN POTASSIUM 25 MG TABLET. PO SCH (08:00)
[2019-05-10] MEDS: LEVOTHYROXINE 112 MCG TABLET PO SCH (08:00)
[2019-05-10] MEDS: LACTOBACILLUS RHAMNOSUS GG 1 CAPSULE. PO SCH ×2 (08:00→22:15)
[2019-05-10] MEDS: INSULIN LISPRO 300 UNITS/3 ML INSULN.PEN. SQ SCH ×3 (08:00→16:41)
[2019-05-10] MEDS: ASPIRIN ENTERIC COATED 81 MG TABLET.DR. PO SCH (08:00)
--- NOTE | 2019-05-10 09:41 | PDOC ---
PROGRESS NOTES Chief Complaint Chief Complaint OM RT stump BKA RT DM 2 soft tissue ulceration at the anterior-inferior right tibia with sinus tract to the subjacent bone and associated bony changes is consistent with acute osteomyelitis. Open wound right BKA stump down to bone. Nonhealing stump wound with acute osteomyelitis right BKA. GPC h/o Klebsiella, enterococcus (PCN-S) and MRSA wound infection DM Discussed options for care prefers Wound vac and Antibiotic therapy. if therapy fails then we may need to proceed with surgical intervention. 05/10 expressed understanding of the plan of care. wound vac in place SS for discharge planning, home vac and antibiotics. 29 min pt exam, chart review, > 50% of time spent with exam, chart review, pt care coordination History of Present Illness History of Present Illness NO pain, MRI proves OM ESR 12 NO fever, no leukocytosis MRI: Changes of right zthzl-upo-lhgf amputation with soft tissue ulceration at the anterior-inferior right tibia with sinus tract to the subjacent bone and associated bony changes is consistent with acute osteomyelitis. Dw ID Mid level Known to wound care pMG PLAn: WOund care wound vac per [facility] sx Continue vancomycin and add Zosyn BS great Vitals Vitals Vital Signs Date Time Temp Pulse Resp B/P (MAP) Pulse Ox O2 Delivery O2 Flow Rate FiO2 05/10/19 07:00 97.6 72 18 157/77 (103) 96 Room Air 97.6 Physical Exam Physical Exam GENERAL: Lying down, alert, NAD HEENT: Pupils equally round, reactive. Normal conjunctivae. Oral cavity: Pharynx is pink and moist. No thrush. NECK: Supple. LUNGS: Clear to auscultation. HEART: S1 and S2. ABDOMEN: Soft and nontender with bowel sounds present. EXTREMITIES: No gross edema or cyanosis. Right stump wound bandaged - clean with nugauze packing - no gross erythema or warmth SKIN: Warm to touch. No signs of rash. NEUROLOGIC: Alert and oriented x 3. PICC RUE - clean General: Alert, Oriented X3, Cooperative, No acute distress Heart: Regular rate, Normal S1, Normal S2, No murmurs Lungs: Clear, Other Abdomen: Normal bowel sounds, Soft, No tenderness Extremities: No clubbing, No cyanosis, No edema, Normal pulses Skin: No rashes, No breakdown, Other (rt bka stump, no open wounds or drainage) Labs LABS EXAM: MRI RIGHT KNEE WITHOUT AND WITH IV CONTRAST DATE: 05/06/2019 3:04 PM CLINICAL INDICATION: COMPARISON: None. TECHNIQUE: Multiplanar, multisequence MRI of the right knee was performed before and after the administration of intravenous gadolinium contrast. FINDINGS: Changes of rxkhk-uqb-qbht amputation are seen. Changes of soft tissue ulceration at the anterior, inferior margin of the amputation site with tract extending to the subjacent bone. There is mild confluent loss of the normal marrow fat with cortical erosion immediately subjacent to the ulceration consistent with acute osteomyelitis. Diffuse edema of the musculature, possibly postsurgical or myositis. Diffuse soft tissue edema is nonspecific, though cellulitis would have similar appearance. Limited evaluation of the knee joint. IMPRESSION: Changes of right dxxrf-qvt-fomw amputation with soft tissue ulceration at the anterior-inferior right tibia with sinus tract to the subjacent bone and associated bony changes is consistent with acute osteomyelitis. Electronically signed by: Brian Gottlieb MD (05/06/2019 11:35 PM) [facility] MEGHA BLUNT MD, GLENN A MD ORDERED: ANAER/AEROB/GS Procedure Result ------ ------ ANAEROBIC-AEROBIC CULTURE PENDING ANAEROBIC RES 1 PENDING AEROBIC CULT PENDING AEROBIC RES 1 PENDING GRAM STAIN Final Final report GRAM STAIN RES 1 Final Gram positive cocci Rare seen GRAM STAIN RES 2 Final Comment No white blood cells seen. Performed at: [facility], [place], [place] [id number] Preschool Assistant: JEFFREY Hamilton MD, Phone: [phone] Laboratory Tests Test 05/09/19 11:32 05/09/19 16:32 05/09/19 19:43 05/10/19 07:15 Glucose (Fingerstick) 120 mg/dL (70-99) 120 mg/dL (70-99) 195 mg/dL (70-99) 133 mg/dL (70-99) Assessment and Plan Assessmemt and Plan Problems Medical Problems: (1) DM2 (diabetes mellitus, type 2) Status: Chronic (2) Non-healing wound of amputation stump Status: Chronic (3) Osteomyelitis of right lower extremity Status: Acute (4) PAD (peripheral artery disease) Status: Chronic Comment Review of Relevant I have reviewed the following items nikole (where applicable) has been applied. Labs Laboratory Tests Test 05/08/19 12:34 05/08/19 12:46 05/08/19 16:11 05/08/19 21:02 Creatinine 0.9 mg/dL (0.6-1.0) Estimated GFR (Cockcroft-Gault) 63.2 Glucose (Fingerstick) 110 mg/dL (70-99) 153 mg/dL (70-99) 103 mg/dL (70-99) Test 05/09/19 01:15 05/09/19 07:15 05/09/19 11:32 05/09/19 16:32 White Blood Count 4.0 x10^3/uL (4.0-11.0) Red Blood Count 4.20 x10^6/uL (3.50-5.40) Hemoglobin 11.9 g/dL (12.0-15.5) Hematocrit 36.1 % (36.0-47.0) Mean Corpuscular Volume 86 fL (79-100) Mean Corpuscular Hemoglobin 28 pg (25-35) Mean Corpuscular Hemoglobin Concent 33 g/dL (31-37) Red Cell Distribution Width 19.2 % (11.5-14.5) Platelet Count 183 x10^3/uL (140-400) Neutrophils (%) (Auto) 43 % (31-73) Lymphocytes (%) (Auto) 35 % (24-48) Monocytes (%) (Auto) 11 % (0-9) Eosinophils (%) (Auto) 10 % (0-3) Basophils (%) (Auto) 1 % (0-3) Neutrophils # (Auto) 1.7 x10^3/uL (1.8-7.7) Lymphocytes # (Auto) 1.4 x10^3/uL (1.0-4.8) Monocytes # (Auto) 0.5 x10^3/uL (0.0-1.1) Eosinophils # (Auto) 0.4 x10^3/uL (0.0-0.7) Basophils # (Auto) 0.0 x10^3/uL (0.0-0.2) Sodium Level 144 mmol/L (136-145) Potassium Level 4.4 mmol/L (3.5-5.1) Chloride Level 108 mmol/L (98-107) Carbon Dioxide Level 27 mmol/L (21-32) Anion Gap 9 (6-14) Blood Urea Nitrogen 21 mg/dL (7-20) Creatinine 0.9 mg/dL (0.6-1.0) Estimated GFR (Cockcroft-Gault) 63.2 Glucose Level 130 mg/dL (70-99) Calcium Level 9.1 mg/dL (8.5-10.1) Vancomycin Level Trough 19.9 mcg/mL (10.0-20.0) Vancomycin Last Dose Date Vancomycin Last Dose Time Glucose (Fingerstick) 137 mg/dL (70-99) 120 mg/dL (70-99) 120 mg/dL (70-99) Test 05/09/19 19:43 05/10/19 07:15 Glucose (Fingerstick) 195 mg/dL (70-99) 133 mg/dL (70-99) Laboratory Tests Test 05/09/19 11:32 05/09/19 16:32 05/09/19 19:43 05/10/19 07:15 Glucose (Fingerstick) 120 mg/dL (70-99) 120 mg/dL (70-99) 195 mg/dL (70-99) 133 mg/dL (70-99) Microbiology 05/06/19 Anaerobic/Aerobic Culture, Resulted Pending 05/06/19 Anaerobic Culture Result 1 (RAYNA), Resulted Pending 05/06/19 Aerobic Culture, Resulted Pending 05/06/19 Aerobic Culture Result 1 (RAYNA), Resulted Pending 05/06/19 Gram Stain - Final, Resulted 05/06/19 Gram Stain Result 1 (RAYNA) - Final, Resulted 05/06/19 Gram Stain Result 2 (RAYNA) - Final, Resulted 05/06/19 Blood Culture - Preliminary, Resulted NO GROWTH AFTER 3 DAYS Medications Current Medications Vancomycin HCl 250 ml @ 250 mls/hr 1X STAT IV ; Start 05/06/19 at 14:50; Stop 05/06/19 at 15:49; Status UNV Vancomycin HCl 2 gm/Sodium Chloride 500 ml @ 250 mls/hr ONCE ONCE IV Last administered on 05/06/19 21:12; Start 05/06/19 at 15:15; Stop 05/06/19 at 17:14; Status DC Gadoterate Meglumine (Dotarem) 15 ml 1X ONCE IVP Last administered on 05/06/19 20:11; Start 05/06/19 at 19:00; Stop 05/06/19 at 19:01; Status DC Aspirin (Ecotrin) 81 mg DAILYWBKFT PO Last administered on 05/09/19 07:48; Start 05/07/19 at 08:00 Atorvastatin Calcium (Lipitor) 20 mg QHS PO Last administered on 05/09/19 21:23; Start 05/07/19 at 21:00 Acetaminophen/ Hydrocodone Bitart (Lortab 5/325) 1 tab PRN Q6HRS PRN PO MODERATE PAIN 4-6; Start 05/06/19 at 23:30; Stop 05/07/19 at 09:59; Status DC Lactobacillus Rhamnosus (Culturelle) 1 cap BID PO Last administered on 05/09/19 21:23; Start 05/07/19 at 09:00 Levothyroxine Sodium (Synthroid) 112 mcg DAILY07 PO Last administered on 05/09/19 07:48; Start 05/07/19 at 07:00 Losartan Potassium (Cozaar) 25 mg DAILY PO Last administered on 05/09/19 08:25; Start 05/07/19 at 09:00 Non-Formulary Medication (Canagliflozin (Invokana)) 300 mg DAILY PO Last administered on 05/09/19at 08:26; Start 05/07/19 at 09:00 Metformin HCl (Glucophage) 1,000 mg BIDWMEALS PO Last administered on 05/09/19at 16:22; Start 05/07/19 at 08:00 Insulin Human Lispro (HumaLOG) 0-9 UNITS TIDWMEALS SQ Last administered on 05/07/19at 12:53; Start 05/07/19 at 12:00 Dextrose (Dextrose 50%-Water Syringe) 12.5 gm PRN Q15MIN PRN IV SEE COMMENTS; Start 05/07/19 at 10:00 Dextrose 250 ml PRN Q15MIN PRN IV SEE COMMENTS; Start 05/07/19 at 10:00 Acetaminophen/ Hydrocodone Bitart (Lortab 5/325) 1 tab PRN Q4HRS PRN PO MODERATE PAIN; Start 05/07/19 at 10:00 Morphine Sulfate (Morphine Sulfate) 2 mg PRN Q2HR PRN IV PAIN; Start 05/07/19 at 10:00 Zolpidem Tartrate (Ambien) 5 mg PRN QHS PRN PO INSOMNIA; Start 05/07/19 at 10:00 Calcium Carbonate/ Glycine (Tums) 500 mg PRN AFTMEALHC PRN PO INDIGESTION; Start 05/07/19 at 10:00 Vancomycin HCl (Vanco Per Pharmacy) 1 each PRN DAILY PRN MC SEE COMMENTS Last administered on 05/09/19at 02:37; Start 05/07/19 at 13:15 Piperacillin Sod/ Tazobactam Sod 3.375 gm/Sodium Chloride 50 ml @ 100 mls/hr Q6HRS IV Last administered on 05/10/19at 00:01; Start 05/07/19 at 14:00 Vancomycin HCl 1 gm/Sodium Chloride 250 ml @ 250 mls/hr Q12H IV Last administered on 05/10/19at 02:18; Start 05/07/19 at 14:00 Vancomycin HCl (Vancomycin Trough Level) 1 each 1X ONCE MC Last administered on 05/09/19at 01:18; Start 05/09/19 at 01:30; Stop 05/09/19 at 01:31; Status DC Lidocaine/Sodium Bicarbonate (Buffered Lidocaine 1%) 3 ml STK-MED ONCE .ROUTE ; Start 05/09/19 at 13:40; Stop 05/09/19 at 13:41; Status DC Lidocaine/Sodium Bicarbonate (Buffered Lidocaine 1%) 3 ml 1X ONCE INJ Last administered on 05/09/19at 14:26; Start 05/09/19 at 14:15; Stop 05/09/19 at 14:16; Status DC Active Scripts Active Culturelle (Lactobacillus Rhamnosus Gg) 1 Each Cap.sprink 1 Cap PO BID 7 Days Hydrocodone-Apap 5-325 (Hydrocodone Bit/Acetaminophen) 1 Tab Tablet 1 Tab PO PRN Q6HRS PRN 6 Days Aspirin Ec (Aspirin) 81 Mg Tablet. 81 Mg PO DAILYWBKFT 30 Days Atorvastatin Calcium 40 Mg Tablet 20 Mg PO QHS Levothyroxine Sodium 112 Mcg Tablet 112 Mcg PO DAILY07 Reported Metformin Hcl 1,000 Mg Tablet 1,000 Mg PO BID Invokana (Canagliflozin) 300 Mg Tablet 300 Mg PO DAILY Losartan Potassium 50 Mg Tablet 25 Mg PO DAILY Vitals/I & O Vital Sign - Last 24 Hours 05/09/19 05/09/19 05/09/19 05/09/19 11:00 15:05 19:00 20:00 Temp 97.7 98.1 98.0 97.7 98.1 98.0 Pulse 79 80 79 Resp 16 16 18 B/P (MAP) 129/61 (83) 125/68 (87) 138/57 (84) Pulse Ox 98 98 97 O2 Delivery Room Air Room Air Room Air Room Air 05/09/19 05/10/19 05/10/19 23:00 03:00 07:00 Temp 98.1 98.0 97.6 98.1 98.0 97.6 Pulse 78 77 72 Resp 18 18 18 B/P (MAP) 154/72 (99) 144/73 (96) 157/77 (103) Pulse Ox 96 98 96 O2 Delivery Room Air Room Air Room Air Intake and Output 05/09/19 05/09/19 05/10/19 15:00 23:00 07:00 Intake Total 360 ml 780 ml 300 ml Balance 360 ml 780 ml 300 ml OMAR DUGAN MD May 10, 2019 09:41
[2019-05-10 09:58] LABS: BASO % 1 % (0-3); EOS # 0.5 x10^3/uL (0.0-0.7); EOS % 10 % (0-3); HEMATOCRIT 35.3 % (36.0-47.0); HEMOGLOBIN 11.8 g/dL (12.0-15.5); LYMPH # 1.5 x10^3/uL (1.0-4.8); LYMPH % 33 % (24-48); MEAN CORPUSCULAR HEMOGLOBIN 29 pg (25-35); MEAN CORPUSCULAR HGB CONC 33 g/dL (31-37); MEAN CORPUSCULAR VOLUME 86 fL (79-100); MONO # 0.4 x10^3/uL (0.0-1.1); MONO % 10 % (0-9); NEUT # 2.1 x10^3/uL (1.8-7.7); NEUT % 46 % (31-73); PLATELET COUNT 189 x10^3/uL (140-400); RED BLOOD COUNT 4.11 x10^6/uL (3.50-5.40); RED CELL DISTRIBUTION WIDTH 19.5 % (11.5-14.5); WHITE BLOOD COUNT 4.5 x10^3/uL (4.0-11.0)
[2019-05-10 10:22] LABS: ALBUMIN 3.1 g/dL (3.4-5.0); ALBUMIN/GLOBULIN RATIO 0.8 (1.0-1.7); CALCIUM 9.2 mg/dL (8.5-10.1); CREATININE 0.9 mg/dL (0.6-1.0); GFR 63.2; POTASSIUM 4.2 mmol/L (3.5-5.1); TOTAL BILIRUBIN 0.6 mg/dL (0.2-1.0); TOTAL PROTEIN 6.8 g/dL (6.4-8.2)
--- NOTE | 2019-05-10 10:23 | PDOC ---
Infectious Disease Note Subjective Subjective Hoping to go home soon Wound vac placed Denies F/C/S/pain/N/V/D ROS ROS per HPI Vital Sign Vital Signs Vital Signs Date Time Temp Pulse Resp B/P (MAP) Pulse Ox O2 Delivery O2 Flow Rate FiO2 05/10/19 07:00 97.6 72 18 157/77 (103) 96 Room Air 97.6 Physical Exam PHYSICAL EXAM GENERAL: Lying down, alert, NAD HEENT: Pupils equally round, reactive. Normal conjunctivae. Oral cavity cavity clear NECK: Supple. LUNGS: Clear to auscultation. HEART: S1 and S2. ABDOMEN: Soft and nontender with bowel sounds present. EXTREMITIES: No gross edema or cyanosis. Right stump wound vac in place. SKIN: Warm to touch. No signs of rash. NEUROLOGIC: Alert and oriented x 3. RUE-PICC (05/09) clean Labs Lab Laboratory Tests Test 05/09/19 11:32 05/09/19 16:32 05/09/19 19:43 05/10/19 07:15 Glucose (Fingerstick) 120 mg/dL (70-99) 120 mg/dL (70-99) 195 mg/dL (70-99) 133 mg/dL (70-99) Test 05/10/19 09:37 White Blood Count 4.5 x10^3/uL (4.0-11.0) Red Blood Count 4.11 x10^6/uL (3.50-5.40) Hemoglobin 11.8 g/dL (12.0-15.5) Hematocrit 35.3 % (36.0-47.0) Mean Corpuscular Volume 86 fL (79-100) Mean Corpuscular Hemoglobin 29 pg (25-35) Mean Corpuscular Hemoglobin Concent 33 g/dL (31-37) Red Cell Distribution Width 19.5 % (11.5-14.5) Platelet Count 189 x10^3/uL (140-400) Neutrophils (%) (Auto) 46 % (31-73) Lymphocytes (%) (Auto) 33 % (24-48) Monocytes (%) (Auto) 10 % (0-9) Eosinophils (%) (Auto) 10 % (0-3) Basophils (%) (Auto) 1 % (0-3) Neutrophils # (Auto) 2.1 x10^3/uL (1.8-7.7) Lymphocytes # (Auto) 1.5 x10^3/uL (1.0-4.8) Monocytes # (Auto) 0.4 x10^3/uL (0.0-1.1) Eosinophils # (Auto) 0.5 x10^3/uL (0.0-0.7) Basophils # (Auto) 0.0 x10^3/uL (0.0-0.2) Micro 05/06/19 Blood Culture - Preliminary, Resulted NO GROWTH AFTER 3 DAY Right stump GRAM STAIN RES 1 Final Gram positive cocci Objective Assessment Nonhealing stump wound with acute osteomyelitis right BKA. GPC h/o Klebsiella, enterococcus (PCN-S) and MRSA wound infection DM PAD s/p revascularization, 10/2018 Plan Plan of Care Patient wants to avoid surgery and try another round of IV abx instead. She understands the wound may not heal with abx alone. Continue vancomycin and Zosyn for now Trough 19.9 Monitor renal function closely. Awaiting culture results f/u appt with Dr. William on 05/27 D/w Wound care - felt bone on prior exam. d/w Attending Co-Sign Attending Co-Sign The patient was seen and interviewed as well as examined at the bedside. The chart was reviewed. The case was discussed. Agree with the plan of care. SHILPI CLARK APRN May 10, 2019 10:23 WILLIE MANN MD May 10, 2019 16:01
[2019-05-10 10:43] VITALS: BP 132/68
--- NOTE | 2019-05-10 10:47 | NUR ---
[facility] down this am. 0700, 0800, and 0900 medications given at 0800.
[2019-05-10 15:05] VITALS: BP 138/58
[2019-05-10] MEDS: VANCOMYCIN PER PHARMACY MC PRN (15:36)
--- NOTE | 2019-05-10 15:36 | NUR ---
SW following pt. ID awaiting on cultures. SW will arrange HH and home infusion upon dc.
[2019-05-10 19:00] VITALS: BP 126/79
[2019-05-10] MEDS: ATORVASTATIN CALCIUM 20 MG TABLET PO SCH (22:15)
[2019-05-10 23:00] VITALS: BP 140/63
[2019-05-11] MEDS: PIPERACILLIN/TAZOBACTAM 3.375 GM in IV NORMAL SALINE 50ML 50 ML IV SCH ×3 (00:51→12:36)
[2019-05-11 03:00] VITALS: BP 133/68
[2019-05-11] MEDS: VANCOMYCIN 750 MG in IV NORMAL SALINE 250ML 250 ML IV SCH ×2 (03:01→15:38)
[2019-05-11] MEDS: LEVOTHYROXINE 112 MCG TABLET PO SCH (06:05)
[2019-05-11 06:29] LABS: BASO % 1 % (0-3); EOS # 0.5 x10^3/uL (0.0-0.7); EOS % 10 % (0-3); HEMATOCRIT 35.7 % (36.0-47.0); HEMOGLOBIN 11.9 g/dL (12.0-15.5); LYMPH # 2.1 x10^3/uL (1.0-4.8); LYMPH % 40 % (24-48); MEAN CORPUSCULAR HEMOGLOBIN 29 pg (25-35); MEAN CORPUSCULAR HGB CONC 33 g/dL (31-37); MEAN CORPUSCULAR VOLUME 86 fL (79-100); MONO # 0.4 x10^3/uL (0.0-1.1); MONO % 8 % (0-9); NEUT # 2.1 x10^3/uL (1.8-7.7); NEUT % 41 % (31-73); PLATELET COUNT 206 x10^3/uL (140-400); RED BLOOD COUNT 4.15 x10^6/uL (3.50-5.40); RED CELL DISTRIBUTION WIDTH 18.7 % (11.5-14.5); WHITE BLOOD COUNT 5.2 x10^3/uL (4.0-11.0)
[2019-05-11 06:38] VITALS: BP 152/68
[2019-05-11 06:58] LABS: ALBUMIN 3.2 g/dL (3.4-5.0); ALBUMIN/GLOBULIN RATIO 0.9 (1.0-1.7); CALCIUM 9.1 mg/dL (8.5-10.1); CREATININE 0.9 mg/dL (0.6-1.0); GFR 63.2; POTASSIUM 4.1 mmol/L (3.5-5.1); TOTAL BILIRUBIN 0.5 mg/dL (0.2-1.0); TOTAL PROTEIN 6.9 g/dL (6.4-8.2)
[2019-05-11] MEDS: INSULIN LISPRO 300 UNITS/3 ML INSULN.PEN. SQ SCH ×2 (08:00→12:00)
[2019-05-11] MEDS: ASPIRIN ENTERIC COATED 81 MG TABLET.DR. PO SCH (08:41)
[2019-05-11] MEDS: LACTOBACILLUS RHAMNOSUS GG 1 CAPSULE. PO SCH (08:42)
[2019-05-11] MEDS: LOSARTAN POTASSIUM 25 MG TABLET. PO SCH (08:42)
[2019-05-11] MEDS: metFORMIN 500 MG TABLET PO SCH (08:42)
--- NOTE | 2019-05-11 10:35 | PDOC ---
PROGRESS NOTES Chief Complaint Chief Complaint discharge dx Osteomyelitis RT leg stump BKA RT remote DM 2 soft tissue ulceration at the anterior-inferior right tibia with sinus tract to the subjacent bone and associated bony changes is consistent with acute osteomyelitis. Open wound right BKA stump down to bone. Nonhealing stump wound with acute osteomyelitis right BKA. GPC h/o Klebsiella, enterococcus (PCN-S) and MRSA wound infection DM Discussed options for care prefers Wound vac and Antibiotic therapy. if therapy fails then we may need to proceed with surgical intervention. 05/10 expressed understanding of the plan of care. wound vac in place SS for discharge planning, home vac and antibiotics. Home on Vanc and Invanz iv PtcO2 less than 40 mmHg is consistent with poor wound healing. PtcO2 results on room air ranged from 53 - 75 mmHg indicating adequate arterial perfusion for wound healing. Response to O2 challenge indicates potential benefit from HBO tx. 34 min pt exam, chart review d/c planning, > 50% of time spent with exam, chart review, pt care coordination History of Present Illness History of Present Illness NO pain, MRI proves OM ESR 12 NO fever, no leukocytosis MRI: Changes of right imxov-[id number] amputation with soft tissue ulceration at the anterior-inferior right tibia with sinus tract to the subjacent bone and associated bony changes is consistent with acute osteomyelitis. Dw ID Mid level Known to wound care pMG PLAn: WOund care wound vac per [facility] sx Continue vancomycin and add Zosyn BS great Vitals Vitals Vital Signs Date Time Temp Pulse Resp B/P (MAP) Pulse Ox O2 Delivery O2 Flow Rate FiO2 05/11/19 08:42 85 114/72 05/11/19 06:38 98.7 18 97 Room Air 98.7 Physical Exam Physical Exam GENERAL: alert, NAD HEENT: Pupils equally round, reactive. Normal conjunctivae. Oral cavity cavity clear NECK: Supple. LUNGS: Clear to auscultation. HEART: S1 and S2. ABDOMEN: Soft and nontender with bowel sounds present. EXTREMITIES: No gross edema or cyanosis. Right stump wound vac in place. SKIN: Warm to touch. No signs of rash. NEUROLOGIC: Alert and oriented x 3. RUE-PICC (05/09) clean General: Alert, Oriented X3, Cooperative, No acute distress Heart: Regular rate, Normal S1, Normal S2, No murmurs Lungs: Clear, Other Abdomen: Normal bowel sounds, Soft, No tenderness Extremities: No clubbing, No cyanosis, No edema, Normal pulses Skin: No rashes, No breakdown, Other (rt bka stump, no open wounds or drainage) Labs LABS Laboratory Tests Test 05/10/19 11:14 05/10/19 16:20 05/10/19 20:14 05/11/19 06:10 Glucose (Fingerstick) 148 mg/dL (70-99) 131 mg/dL (70-99) 114 mg/dL (70-99) White Blood Count 5.2 x10^3/uL (4.0-11.0) Red Blood Count 4.15 x10^6/uL (3.50-5.40) Hemoglobin 11.9 g/dL (12.0-15.5) Hematocrit 35.7 % (36.0-47.0) Mean Corpuscular Volume 86 fL (79-100) Mean Corpuscular Hemoglobin 29 pg (25-35) Mean Corpuscular Hemoglobin Concent 33 g/dL (31-37) Red Cell Distribution Width 18.7 % (11.5-14.5) Platelet Count 206 x10^3/uL (140-400) Neutrophils (%) (Auto) 41 % (31-73) Lymphocytes (%) (Auto) 40 % (24-48) Monocytes (%) (Auto) 8 % (0-9) Eosinophils (%) (Auto) 10 % (0-3) Basophils (%) (Auto) 1 % (0-3) Neutrophils # (Auto) 2.1 x10^3/uL (1.8-7.7) Lymphocytes # (Auto) 2.1 x10^3/uL (1.0-4.8) Monocytes # (Auto) 0.4 x10^3/uL (0.0-1.1) Eosinophils # (Auto) 0.5 x10^3/uL (0.0-0.7) Basophils # (Auto) 0.0 x10^3/uL (0.0-0.2) Sodium Level 142 mmol/L (136-145) Potassium Level 4.1 mmol/L (3.5-5.1) Chloride Level 107 mmol/L (98-107) Carbon Dioxide Level 25 mmol/L (21-32) Anion Gap 10 (6-14) Blood Urea Nitrogen 21 mg/dL (7-20) Creatinine 0.9 mg/dL (0.6-1.0) Estimated GFR (Cockcroft-Gault) 63.2 BUN/Creatinine Ratio 23 (6-20) Glucose Level 136 mg/dL (70-99) Calcium Level 9.1 mg/dL (8.5-10.1) Total Bilirubin 0.5 mg/dL (0.2-1.0) Aspartate Amino Transf (AST/SGOT) 10 U/L (15-37) Alanine Aminotransferase (ALT/SGPT) 28 U/L (14-59) Alkaline Phosphatase 67 U/L (46-116) Total Protein 6.9 g/dL (6.4-8.2) Albumin 3.2 g/dL (3.4-5.0) Albumin/Globulin Ratio 0.9 (1.0-1.7) Test 05/11/19 07:51 Glucose (Fingerstick) 123 mg/dL (70-99) Assessment and Plan Assessmemt and Plan Problems Medical Problems: (1) DM2 (diabetes mellitus, type 2) Status: Chronic (2) Non-healing wound of amputation stump Status: Chronic (3) Osteomyelitis of right lower extremity Status: Acute (4) PAD (peripheral artery disease) Status: Chronic Comment Review of Relevant I have reviewed the following items nikole (where applicable) has been applied. Labs Laboratory Tests Test 05/09/19 11:32 05/09/19 16:32 05/09/19 19:43 05/10/19 07:15 Glucose (Fingerstick) 120 mg/dL (70-99) 120 mg/dL (70-99) 195 mg/dL (70-99) 133 mg/dL (70-99) Test 05/10/19 09:37 05/10/19 11:14 05/10/19 16:20 05/10/19 20:14 White Blood Count 4.5 x10^3/uL (4.0-11.0) Red Blood Count 4.11 x10^6/uL (3.50-5.40) Hemoglobin 11.8 g/dL (12.0-15.5) Hematocrit 35.3 % (36.0-47.0) Mean Corpuscular Volume 86 fL (79-100) Mean Corpuscular Hemoglobin 29 pg (25-35) Mean Corpuscular Hemoglobin Concent 33 g/dL (31-37) Red Cell Distribution Width 19.5 % (11.5-14.5) Platelet Count 189 x10^3/uL (140-400) Neutrophils (%) (Auto) 46 % (31-73) Lymphocytes (%) (Auto) 33 % (24-48) Monocytes (%) (Auto) 10 % (0-9) Eosinophils (%) (Auto) 10 % (0-3) Basophils (%) (Auto) 1 % (0-3) Neutrophils # (Auto) 2.1 x10^3/uL (1.8-7.7) Lymphocytes # (Auto) 1.5 x10^3/uL (1.0-4.8) Monocytes # (Auto) 0.4 x10^3/uL (0.0-1.1) Eosinophils # (Auto) 0.5 x10^3/uL (0.0-0.7) Basophils # (Auto) 0.0 x10^3/uL (0.0-0.2) Sodium Level 142 mmol/L (136-145) Potassium Level 4.2 mmol/L (3.5-5.1) Chloride Level 105 mmol/L (98-107) Carbon Dioxide Level 26 mmol/L (21-32) Anion Gap 11 (6-14) Blood Urea Nitrogen 19 mg/dL (7-20) Creatinine 0.9 mg/dL (0.6-1.0) Estimated GFR (Cockcroft-Gault) 63.2 BUN/Creatinine Ratio 21 (6-20) Glucose Level 195 mg/dL (70-99) Calcium Level 9.2 mg/dL (8.5-10.1) Total Bilirubin 0.6 mg/dL (0.2-1.0) Aspartate Amino Transf (AST/SGOT) 18 U/L (15-37) Alanine Aminotransferase (ALT/SGPT) 29 U/L (14-59) Alkaline Phosphatase 68 U/L (46-116) Total Protein 6.8 g/dL (6.4-8.2) Albumin 3.1 g/dL (3.4-5.0) Albumin/Globulin Ratio 0.8 (1.0-1.7) Glucose (Fingerstick) 148 mg/dL (70-99) 131 mg/dL (70-99) 114 mg/dL (70-99) Test 05/11/19 06:10 05/11/19 07:51 White Blood Count 5.2 x10^3/uL (4.0-11.0) Red Blood Count 4.15 x10^6/uL (3.50-5.40) Hemoglobin 11.9 g/dL (12.0-15.5) Hematocrit 35.7 % (36.0-47.0) Mean Corpuscular Volume 86 fL (79-100) Mean Corpuscular Hemoglobin 29 pg (25-35) Mean Corpuscular Hemoglobin Concent 33 g/dL (31-37) Red Cell Distribution Width 18.7 % (11.5-14.5) Platelet Count 206 x10^3/uL (140-400) Neutrophils (%) (Auto) 41 % (31-73) Lymphocytes (%) (Auto) 40 % (24-48) Monocytes (%) (Auto) 8 % (0-9) Eosinophils (%) (Auto) 10 % (0-3) Basophils (%) (Auto) 1 % (0-3) Neutrophils # (Auto) 2.1 x10^3/uL (1.8-7.7) Lymphocytes # (Auto) 2.1 x10^3/uL (1.0-4.8) Monocytes # (Auto) 0.4 x10^3/uL (0.0-1.1) Eosinophils # (Auto) 0.5 x10^3/uL (0.0-0.7) Basophils # (Auto) 0.0 x10^3/uL (0.0-0.2) Sodium Level 142 mmol/L (136-145) Potassium Level 4.1 mmol/L (3.5-5.1) Chloride Level 107 mmol/L (98-107) Carbon Dioxide Level 25 mmol/L (21-32) Anion Gap 10 (6-14) Blood Urea Nitrogen 21 mg/dL (7-20) Creatinine 0.9 mg/dL (0.6-1.0) Estimated GFR (Cockcroft-Gault) 63.2 BUN/Creatinine Ratio 23 (6-20) Glucose Level 136 mg/dL (70-99) Calcium Level 9.1 mg/dL (8.5-10.1) Total Bilirubin 0.5 mg/dL (0.2-1.0) Aspartate Amino Transf (AST/SGOT) 10 U/L (15-37) Alanine Aminotransferase (ALT/SGPT) 28 U/L (14-59) Alkaline Phosphatase 67 U/L (46-116) Total Protein 6.9 g/dL (6.4-8.2) Albumin 3.2 g/dL (3.4-5.0) Albumin/Globulin Ratio 0.9 (1.0-1.7) Glucose (Fingerstick) 123 mg/dL (70-99) Laboratory Tests Test 05/10/19 11:14 05/10/19 16:20 05/10/19 20:14 05/11/19 06:10 Glucose (Fingerstick) 148 mg/dL (70-99) 131 mg/dL (70-99) 114 mg/dL (70-99) White Blood Count 5.2 x10^3/uL (4.0-11.0) Red Blood Count 4.15 x10^6/uL (3.50-5.40) Hemoglobin 11.9 g/dL (12.0-15.5) Hematocrit 35.7 % (36.0-47.0) Mean Corpuscular Volume 86 fL (79-100) Mean Corpuscular Hemoglobin 29 pg (25-35) Mean Corpuscular Hemoglobin Concent 33 g/dL (31-37) Red Cell Distribution Width 18.7 % (11.5-14.5) Platelet Count 206 x10^3/uL (140-400) Neutrophils (%) (Auto) 41 % (31-73) Lymphocytes (%) (Auto) 40 % (24-48) Monocytes (%) (Auto) 8 % (0-9) Eosinophils (%) (Auto) 10 % (0-3) Basophils (%) (Auto) 1 % (0-3) Neutrophils # (Auto) 2.1 x10^3/uL (1.8-7.7) Lymphocytes # (Auto) 2.1 x10^3/uL (1.0-4.8) Monocytes # (Auto) 0.4 x10^3/uL (0.0-1.1) Eosinophils # (Auto) 0.5 x10^3/uL (0.0-0.7) Basophils # (Auto) 0.0 x10^3/uL (0.0-0.2) Sodium Level 142 mmol/L (136-145) Potassium Level 4.1 mmol/L (3.5-5.1) Chloride Level 107 mmol/L (98-107) Carbon Dioxide Level 25 mmol/L (21-32) Anion Gap 10 (6-14) Blood Urea Nitrogen 21 mg/dL (7-20) Creatinine 0.9 mg/dL (0.6-1.0) Estimated GFR (Cockcroft-Gault) 63.2 BUN/Creatinine Ratio 23 (6-20) Glucose Level 136 mg/dL (70-99) Calcium Level 9.1 mg/dL (8.5-10.1) Total Bilirubin 0.5 mg/dL (0.2-1.0) Aspartate Amino Transf (AST/SGOT) 10 U/L (15-37) Alanine Aminotransferase (ALT/SGPT) 28 U/L (14-59) Alkaline Phosphatase 67 U/L (46-116) Total Protein 6.9 g/dL (6.4-8.2) Albumin 3.2 g/dL (3.4-5.0) Albumin/Globulin Ratio 0.9 (1.0-1.7) Test 05/11/19 07:51 Glucose (Fingerstick) 123 mg/dL (70-99) Microbiology 05/06/19 Anaerobic/Aerobic Culture, Resulted Pending 05/06/19 Anaerobic Culture Result 1 (RAYNA), Resulted Pending 05/06/19 Aerobic Culture, Resulted Pending 05/06/19 Aerobic Culture Result 1 (RAYNA), Resulted Pending 05/06/19 Gram Stain - Final, Resulted 05/06/19 Gram Stain Result 1 (RAYNA) - Final, Resulted 05/06/19 Gram Stain Result 2 (RAYNA) - Final, Resulted 05/06/19 Blood Culture - Preliminary, Resulted NO GROWTH AFTER 4 DAYS Medications Current Medications Vancomycin HCl 250 ml @ 250 mls/hr 1X STAT IV ; Start 05/06/19 at 14:50; Stop 05/06/19 at 15:49; Status UNV Vancomycin HCl 2 gm/Sodium Chloride 500 ml @ 250 mls/hr ONCE ONCE IV Last administered on 05/06/19 21:12; Start 05/06/19 at 15:15; Stop 05/06/19 at 17:14; Status DC Gadoterate Meglumine (Dotarem) 15 ml 1X ONCE IVP Last administered on 05/06/19 20:11; Start 05/06/19 at 19:00; Stop 05/06/19 at 19:01; Status DC Aspirin (Ecotrin) 81 mg DAILYWBKFT PO Last administered on 05/11/19 08:42; Start 05/07/19 at 08:00 Atorvastatin Calcium (Lipitor) 20 mg QHS PO Last administered on 05/10/19 22:15; Start 05/07/19 at 21:00 Acetaminophen/ Hydrocodone Bitart (Lortab 5/325) 1 tab PRN Q6HRS PRN PO MODERATE PAIN 4-6; Start 05/06/19 at 23:30; Stop 05/07/19 at 09:59; Status DC Lactobacillus Rhamnosus (Culturelle) 1 cap BID PO Last administered on 05/11/19 08:42; Start 05/07/19 at 09:00 Levothyroxine Sodium (Synthroid) 112 mcg DAILY07 PO Last administered on 05/11/19 06:06; Start 05/07/19 at 07:00 Losartan Potassium (Cozaar) 25 mg DAILY PO Last administered on 05/11/19 08:42; Start 05/07/19 at 09:00 Non-Formulary Medication (Canagliflozin (Invokana)) 300 mg DAILY PO Last administered on 05/11/19 08:42; Start 05/07/19 at 09:00 Metformin HCl (Glucophage) 1,000 mg BIDWMEALS PO Last administered on 05/11/19 08:42; Start 05/07/19 at 08:00 Insulin Human Lispro (HumaLOG) 0-9 UNITS TIDWMEALS SQ Last administered on 05/07/19at 12:53; Start 05/07/19 at 12:00 Dextrose (Dextrose 50%-Water Syringe) 12.5 gm PRN Q15MIN PRN IV SEE COMMENTS; Start 05/07/19 at 10:00 Dextrose 250 ml PRN Q15MIN PRN IV SEE COMMENTS; Start 05/07/19 at 10:00 Acetaminophen/ Hydrocodone Bitart (Lortab 5/325) 1 tab PRN Q4HRS PRN PO MODERATE PAIN; Start 05/07/19 at 10:00 Morphine Sulfate (Morphine Sulfate) 2 mg PRN Q2HR PRN IV PAIN; Start 05/07/19 at 10:00 Zolpidem Tartrate (Ambien) 5 mg PRN QHS PRN PO INSOMNIA; Start 05/07/19 at 10:00 Calcium Carbonate/ Glycine (Tums) 500 mg PRN AFTMEALHC PRN PO INDIGESTION; Start 05/07/19 at 10:00 Vancomycin HCl (Vanco Per Pharmacy) 1 each PRN DAILY PRN MC SEE COMMENTS Last administered on 05/10/19at 15:38; Start 05/07/19 at 13:15 Piperacillin Sod/ Tazobactam Sod 3.375 gm/Sodium Chloride 50 ml @ 100 mls/hr Q6HRS IV Last administered on 05/11/19at 06:06; Start 05/07/19 at 14:00 Vancomycin HCl 1 gm/Sodium Chloride 250 ml @ 250 mls/hr Q12H IV Last administered on 05/10/19at 15:08; Start 05/07/19 at 14:00; Stop 05/10/19 at 23:59; Status DC Vancomycin HCl (Vancomycin Trough Level) 1 each 1X ONCE MC Last administered on 05/09/19at 01:18; Start 05/09/19 at 01:30; Stop 05/09/19 at 01:31; Status DC Lidocaine/Sodium Bicarbonate (Buffered Lidocaine 1%) 3 ml STK-MED ONCE .ROUTE ; Start 05/09/19 at 13:40; Stop 05/09/19 at 13:41; Status DC Lidocaine/Sodium Bicarbonate (Buffered Lidocaine 1%) 3 ml 1X ONCE INJ Last administered on 05/09/19at 14:26; Start 05/09/19 at 14:15; Stop 05/09/19 at 14:16; Status DC Vancomycin HCl 750 mg/Sodium Chloride 250 ml @ 250 mls/hr Q12H IV Last administered on 05/11/19at 03:01; Start 05/11/19 at 03:00 Active Scripts Active Culturelle (Lactobacillus Rhamnosus Gg) 1 Each Cap.sprink 1 Cap PO BID 7 Days Hydrocodone-Apap 5-325 (Hydrocodone Bit/Acetaminophen) 1 Tab Tablet 1 Tab PO PRN Q6HRS PRN 6 Days Aspirin Ec (Aspirin) 81 Mg Tablet. 81 Mg PO DAILYWBKFT 30 Days Atorvastatin Calcium 40 Mg Tablet 20 Mg PO QHS Levothyroxine Sodium 112 Mcg Tablet 112 Mcg PO DAILY07 Reported Metformin Hcl 1,000 Mg Tablet 1,000 Mg PO BID Invokana (Canagliflozin) 300 Mg Tablet 300 Mg PO DAILY Losartan Potassium 50 Mg Tablet 25 Mg PO DAILY Vitals/I & O Vital Sign - Last 24 Hours 05/10/19 05/10/19 05/10/19 05/10/19 10:43 10:47 15:05 19:00 Temp 97.7 97.8 98.0 97.7 97.8 98.0 Pulse 72 72 80 88 Resp 18 18 17 B/P (MAP) 132/68 (89) 157/74 138/58 (84) 126/79 (95) Pulse Ox 96 96 94 O2 Delivery Room Air Room Air Room Air 05/10/19 05/10/19 05/11/19 05/11/19 20:00 23:00 03:00 06:38 Temp 97.8 97.5 98.7 97.8 97.5 98.7 Pulse 68 72 75 Resp 18 17 18 B/P (MAP) 140/63 (88) 133/68 (89) 152/68 (96) Pulse Ox 97 97 97 O2 Delivery Room Air Room Air Room Air Room Air 05/11/19 08:42 Pulse 85 B/P (MAP) 114/72 Intake and Output 05/10/19 05/10/19 05/11/19 15:00 23:00 07:00 Intake Total 650 ml 550 ml 250 ml Balance 650 ml 550 ml 250 ml OMAR DUGAN MD May 11, 2019 10:35
[2019-05-11 11:00] VITALS: BP 122/71
--- NOTE | 2019-05-11 12:41 | PDOC ---
Infectious Disease Note Subjective Subjective Hoping to go home soon Feels good, no complaints Denies F/C/S/pain/N/V/D ROS ROS per HPI Vital Sign Vital Signs Vital Signs Date Time Temp Pulse Resp B/P (MAP) Pulse Ox O2 Delivery O2 Flow Rate FiO2 05/11/19 11:00 97.9 78 16 122/71 (88) 97 Room Air 97.9 Physical Exam PHYSICAL EXAM GENERAL: Sitting on the side on=of the bed, alert, eating HEENT: Pupils equally round, reactive. Normal conjunctivae. Oral cavity cavity clear NECK: Supple. LUNGS: Clear to auscultation. HEART: S1 and S2. ABDOMEN: Soft and nontender with bowel sounds present. EXTREMITIES: No gross edema or cyanosis. Right stump wound vac in place. SKIN: Warm to touch. No signs of rash. NEUROLOGIC: Alert and oriented x 3. RUE-PICC (05/09) clean Labs Lab Laboratory Tests Test 05/10/19 16:20 05/10/19 20:14 05/11/19 06:10 05/11/19 07:51 Glucose (Fingerstick) 131 mg/dL (70-99) 114 mg/dL (70-99) 123 mg/dL (70-99) White Blood Count 5.2 x10^3/uL (4.0-11.0) Red Blood Count 4.15 x10^6/uL (3.50-5.40) Hemoglobin 11.9 g/dL (12.0-15.5) Hematocrit 35.7 % (36.0-47.0) Mean Corpuscular Volume 86 fL (79-100) Mean Corpuscular Hemoglobin 29 pg (25-35) Mean Corpuscular Hemoglobin Concent 33 g/dL (31-37) Red Cell Distribution Width 18.7 % (11.5-14.5) Platelet Count 206 x10^3/uL (140-400) Neutrophils (%) (Auto) 41 % (31-73) Lymphocytes (%) (Auto) 40 % (24-48) Monocytes (%) (Auto) 8 % (0-9) Eosinophils (%) (Auto) 10 % (0-3) Basophils (%) (Auto) 1 % (0-3) Neutrophils # (Auto) 2.1 x10^3/uL (1.8-7.7) Lymphocytes # (Auto) 2.1 x10^3/uL (1.0-4.8) Monocytes # (Auto) 0.4 x10^3/uL (0.0-1.1) Eosinophils # (Auto) 0.5 x10^3/uL (0.0-0.7) Basophils # (Auto) 0.0 x10^3/uL (0.0-0.2) Sodium Level 142 mmol/L (136-145) Potassium Level 4.1 mmol/L (3.5-5.1) Chloride Level 107 mmol/L (98-107) Carbon Dioxide Level 25 mmol/L (21-32) Anion Gap 10 (6-14) Blood Urea Nitrogen 21 mg/dL (7-20) Creatinine 0.9 mg/dL (0.6-1.0) Estimated GFR (Cockcroft-Gault) 63.2 BUN/Creatinine Ratio 23 (6-20) Glucose Level 136 mg/dL (70-99) Calcium Level 9.1 mg/dL (8.5-10.1) Total Bilirubin 0.5 mg/dL (0.2-1.0) Aspartate Amino Transf (AST/SGOT) 10 U/L (15-37) Alanine Aminotransferase (ALT/SGPT) 28 U/L (14-59) Alkaline Phosphatase 67 U/L (46-116) Total Protein 6.9 g/dL (6.4-8.2) Albumin 3.2 g/dL (3.4-5.0) Albumin/Globulin Ratio 0.9 (1.0-1.7) Test 05/11/19 11:55 Glucose (Fingerstick) 126 mg/dL (70-99) Micro 05/06/19 Blood Culture - Preliminary, Resulted NO GROWTH AFTER 3 DAY Right stump GRAM STAIN RES 1 Final Gram positive cocci Objective Assessment Nonhealing stump wound with acute osteomyelitis right BKA. MRSA. anaerobic culture pending h/o Klebsiella, enterococcus (PCN-S) and MRSA wound infection DM PAD s/p revascularization, 10/2018 Plan Plan of Care Patient wants to avoid surgery and try another round of IV abx instead. She understands the wound may not heal with abx alone. vanc and Zosyn Trough 19.9 f/u appt with Dr. William on 05/27 D/w Wound care - felt bone on prior exam. Dr. Mann called lab [facility] for results. copy placed in chart -MRSA. Dapto susceptibility testing added, d/w micro. Home on Vanc and Invanz Will need F/u in a week to check cults. Discussed risks of Vanc and renal failure. Hope to de-escalate abx based on further cults/sensitivities Rx written Attending Co-Sign Attending Co-Sign The patient was seen and interviewed as well as examined at the bedside. The chart was reviewed. The case was discussed. Agree with the plan of care. SHILPI CLARK APRN May 11, 2019 12:41 WILLIE MANN MD May 11, 2019 12:58
[2019-05-11] MEDS: ERTAPENEM 1 GM in IV NORMAL SALINE 50ML 50 ML IV ONE ×2 (13:30→15:37)
--- NOTE | 2019-05-11 14:45 | PDOC ---
Provider Note Provider Note Vascular S: Patient without complaints. Denies any right stump pain. Denies any nausea or vomiting, tolerating diet. Getting TCOM's currently. O: Awake and alert VSS, afebrile HRR PICC in place right arm Non-labored respirations Right stump with mostly healed incision, small wound overlying otherwise healed incision anteriorly. Depth about 2-4mm, good granulation tissue throughout, no surrounding erythema or swelling, no drainage. MRI: 05/06/19 Changes of right [id number] amputation with soft tissue ulceration at the anterior-inferior right tibia with sinus tract to the subjacent bone and associated bony changes is consistent with acute osteomyelitis. A/P: Atherosclerosis right lower extremity, s/p right BKA with Open wound right BKA stump down to bone. Wound looks clean today.Continued discussion with patient regarding plan of care. She elects to continue wound vac therapy, HBO and joint terminal attack controller IV Abx treatment. Discussed with patient that if therapy fails then we may need to proceed with surgical intervention. She expressed understanding and agreed. Will need to continue IV Antibiotics per ID. Continue wound vac therapy, change 3 x week. Follow up weekly in [facility], she will also be doing daily HBO. She will also follow up with us in office. 05/27 at 11:50 Continue Aspirin therapy. Ok for discharge from vascular standpoint with above arrangements. ANA WOO May 11, 2019 14:45
--- NOTE | 2019-05-11 14:57 | PDOC ---
TCOM NOTE TCOM of RLE performed today. Leads 1-5 placed below the knee and distal to the amputation site. PtcO2 less than 40 mmHg is consistent with poor wound healing. PtcO2 results on room air ranged from 53 - 75 mmHg indicating adequate arterial perfusion for wound healing. Response to O2 challenge indicates potential benefit from HBO tx. MARLEE ALARCON MD May 11, 2019 14:57
[2019-05-11 15:00] VITALS: BP 125/68
--- NOTE | 2019-05-11 15:38 | PDOC3 ---
Discharge Summary Date of Admission: May 07, 2019 Date of Discharge: May 11, 2019 Follow-Up: 1-2 days Admitting Diagnosis comment: discharge dx Osteomyelitis RT leg stump BKA RT remote DM 2 soft tissue ulceration at the anterior-inferior right tibia with sinus tract to the subjacent bone and associated bony changes is consistent with acute osteomyelitis. Open wound right BKA stump down to bone. Nonhealing stump wound with acute osteomyelitis right BKA. GPC h/o Klebsiella, enterococcus (PCN-S) and MRSA wound infection DM Discussed options for care prefers Wound vac and Antibiotic therapy. if therapy fails then we may need to proceed with surgical intervention. 05/10 expressed understanding of the plan of care. wound vac in place SS for discharge planning, home vac and antibiotics. Home on Vanc and Invanz iv PtcO2 less than 40 mmHg is consistent with poor wound healing. PtcO2 results on room air ranged from 53 - 75 mmHg indicating adequate arterial perfusion for wound healing. Response to O2 challenge indicates potential benefit from HBO tx. will plan daily wound clinic visits 34 min pt exam, chart review d/c planning, > 50% of time spent with exam, chart review, pt care coordination History of Present Illness History of Present Illness NO pain, MRI proves OM ESR 12 NO fever, no leukocytosis MRI: Changes of right [id number] amputation with soft tissue ulceration at the anterior-inferior right tibia with sinus tract to the subjacent bone and associated bony changes is consistent with acute osteomyelitis. Dw ID Mid level Known to wound care pMG PLAn: WOund care wound vac per [facility] sx Continue vancomycin and add Zosyn BS great Vitals Vitals Vital Signs Date Time Temp Pulse Resp B/P (MAP) Pulse Ox O2 Delivery O2 Flow Rate FiO2 05/11/19 08:42 85 114/72 05/11/19 06:38 98.7 18 97 Room Air 98.7 Physical Exam Physical Exam GENERAL: alert, NAD HEENT: Pupils equally round, reactive. Normal conjunctivae. Oral cavity cavity clear NECK: Supple. LUNGS: Clear to auscultation. HEART: S1 and S2. ABDOMEN: Soft and nontender with bowel sounds present. EXTREMITIES: No gross edema or cyanosis. Right stump wound vac in place. SKIN: Warm to touch. No signs of rash. NEUROLOGIC: Alert and oriented x 3. RUE-PICC (05/09) clean General: Alert, Oriented X3, Cooperative, No acute distress Heart: Regular rate, Normal S1, Normal S2, No murmurs Lungs: Clear, Other Abdomen: Normal bowel sounds, Soft, No tenderness Extremities: No clubbing, No cyanosis, No edema, Normal pulses Skin: No rashes, No breakdown, Other (rt bka stump, no open wounds or drainage) FINAL DIAGNOSIS Problems Medical Problems: (1) DM2 (diabetes mellitus, type 2) Status: Chronic (2) Non-healing wound of amputation stump Status: Chronic (3) Osteomyelitis of right lower extremity Status: Acute (4) PAD (peripheral artery disease) Status: Chronic Brief Hospital Course Ms. Trujillo is a 63 old [sex] who presented with [ osteomyelitis of leg stump, acute] CONDITION AT DISCHARGE: Improved Discharge Medications Current Medications Vancomycin HCl 250 ml @ 250 mls/hr 1X STAT IV ; Start 05/06/19 at 14:50; Stop 05/06/19 at 15:49; Status UNV Vancomycin HCl 2 gm/Sodium Chloride 500 ml @ 250 mls/hr ONCE ONCE IV Last administered on 05/06/19at 21:12; Start 05/06/19 at 15:15; Stop 05/06/19 at 17:14; Status DC Gadoterate Meglumine (Dotarem) 15 ml 1X ONCE IVP Last administered on 05/06/19at 20:11; Start 05/06/19 at 19:00; Stop 05/06/19 at 19:01; Status DC Aspirin (Ecotrin) 81 mg DAILYWBKFT PO Last administered on 05/11/19at 08:42; Start 05/07/19 at 08:00 Atorvastatin Calcium (Lipitor) 20 mg QHS PO Last administered on 05/10/19at 22:15; Start 05/07/19 at 21:00 Acetaminophen/ Hydrocodone Bitart (Lortab 5/325) 1 tab PRN Q6HRS PRN PO MODERATE PAIN 4-6; Start 05/06/19 at 23:30; Stop 05/07/19 at 09:59; Status DC Lactobacillus Rhamnosus (Culturelle) 1 cap BID PO Last administered on 05/11/19at 08:42; Start 05/07/19 at 09:00 Levothyroxine Sodium (Synthroid) 112 mcg DAILY07 PO Last administered on 05/11/19 06:06; Start 05/07/19 at 07:00 Losartan Potassium (Cozaar) 25 mg DAILY PO Last administered on 05/11/19at 08:42; Start 05/07/19 at 09:00 Non-Formulary Medication (Canagliflozin (Invokana)) 300 mg DAILY PO Last administered on 05/11/19 08:42; Start 05/07/19 at 09:00 Metformin HCl (Glucophage) 1,000 mg BIDWMEALS PO Last administered on 05/11/19 08:42; Start 05/07/19 at 08:00 Insulin Human Lispro (HumaLOG) 0-9 UNITS TIDWMEALS SQ Last administered on 05/07/19at 12:53; Start 05/07/19 at 12:00 Dextrose (Dextrose 50%-Water Syringe) 12.5 gm PRN Q15MIN PRN IV SEE COMMENTS; Start 05/07/19 at 10:00 Dextrose 250 ml PRN Q15MIN PRN IV SEE COMMENTS; Start 05/07/19 at 10:00 Acetaminophen/ Hydrocodone Bitart (Lortab 5/325) 1 tab PRN Q4HRS PRN PO MODERATE PAIN; Start 05/07/19 at 10:00 Morphine Sulfate (Morphine Sulfate) 2 mg PRN Q2HR PRN IV PAIN; Start 05/07/19 at 10:00 Zolpidem Tartrate (Ambien) 5 mg PRN QHS PRN PO INSOMNIA; Start 05/07/19 at 10:00 Calcium Carbonate/ Glycine (Tums) 500 mg PRN AFTMEALHC PRN PO INDIGESTION; Start 05/07/19 at 10:00 Vancomycin HCl (Vanco Per Pharmacy) 1 each PRN DAILY PRN MC SEE COMMENTS Last administered on 05/10/19at 15:38; Start 05/07/19 at 13:15 Piperacillin Sod/ Tazobactam Sod 3.375 gm/Sodium Chloride 50 ml @ 100 mls/hr Q6HRS IV Last administered on 05/11/19at 12:36; Start 05/07/19 at 14:00; Stop 05/11/19 at 12:57; Status DC Vancomycin HCl 1 gm/Sodium Chloride 250 ml @ 250 mls/hr Q12H IV Last administered on 05/10/19at 15:08; Start 05/07/19 at 14:00; Stop 05/10/19 at 23:59; Status DC Vancomycin HCl (Vancomycin Trough Level) 1 each 1X ONCE MC Last administered on 05/09/19at 01:18; Start 05/09/19 at 01:30; Stop 05/09/19 at 01:31; Status DC Lidocaine/Sodium Bicarbonate (Buffered Lidocaine 1%) 3 ml STK-MED ONCE .ROUTE ; Start 05/09/19 at 13:40; Stop 05/09/19 at 13:41; Status DC Lidocaine/Sodium Bicarbonate (Buffered Lidocaine 1%) 3 ml 1X ONCE INJ Last administered on 05/09/19at 14:26; Start 05/09/19 at 14:15; Stop 05/09/19 at 14:16; Status DC Vancomycin HCl 750 mg/Sodium Chloride 250 ml @ 250 mls/hr Q12H IV Last administered on 05/11/19at 03:01; Start 05/11/19 at 03:00 Ertapenem 1 gm/ Sodium Chloride 50 ml @ 100 mls/hr 1X ONCE IV ; Start 05/11/19 at 13:30; Stop 05/11/19 at 13:59; Status DC Active Scripts Active Culturelle (Lactobacillus Rhamnosus Gg) 1 Each Cap.sprink 1 Cap PO BID 7 Days Hydrocodone-Apap 5-325 (Hydrocodone Bit/Acetaminophen) 1 Tab Tablet 1 Tab PO PRN Q6HRS PRN 6 Days Aspirin Ec (Aspirin) 81 Mg Tablet. 81 Mg PO DAILYWBKFT 30 Days Atorvastatin Calcium 40 Mg Tablet 20 Mg PO QHS Levothyroxine Sodium 112 Mcg Tablet 112 Mcg PO DAILY07 Reported Metformin Hcl 1,000 Mg Tablet 1,000 Mg PO BID Invokana (Canagliflozin) 300 Mg Tablet 300 Mg PO DAILY Losartan Potassium 50 Mg Tablet 25 Mg PO DAILY Vital Signs Vital Signs Date Time Temp Pulse Resp B/P (MAP) Pulse Ox O2 Delivery O2 Flow Rate FiO2 05/11/19 11:00 97.9 78 16 122/71 (88) 97 Room Air 97.9 Labs Laboratory Tests Test 05/09/19 16:32 05/09/19 19:43 05/10/19 07:15 05/10/19 09:37 Glucose (Fingerstick) 120 mg/dL (70-99) 195 mg/dL (70-99) 133 mg/dL (70-99) White Blood Count 4.5 x10^3/uL (4.0-11.0) Red Blood Count 4.11 x10^6/uL (3.50-5.40) Hemoglobin 11.8 g/dL (12.0-15.5) Hematocrit 35.3 % (36.0-47.0) Mean Corpuscular Volume 86 fL (79-100) Mean Corpuscular Hemoglobin 29 pg (25-35) Mean Corpuscular Hemoglobin Concent 33 g/dL (31-37) Red Cell Distribution Width 19.5 % (11.5-14.5) Platelet Count 189 x10^3/uL (140-400) Neutrophils (%) (Auto) 46 % (31-73) Lymphocytes (%) (Auto) 33 % (24-48) Monocytes (%) (Auto) 10 % (0-9) Eosinophils (%) (Auto) 10 % (0-3) Basophils (%) (Auto) 1 % (0-3) Neutrophils # (Auto) 2.1 x10^3/uL (1.8-7.7) Lymphocytes # (Auto) 1.5 x10^3/uL (1.0-4.8) Monocytes # (Auto) 0.4 x10^3/uL (0.0-1.1) Eosinophils # (Auto) 0.5 x10^3/uL (0.0-0.7) Basophils # (Auto) 0.0 x10^3/uL (0.0-0.2) Sodium Level 142 mmol/L (136-145) Potassium Level 4.2 mmol/L (3.5-5.1) Chloride Level 105 mmol/L (98-107) Carbon Dioxide Level 26 mmol/L (21-32) Anion Gap 11 (6-14) Blood Urea Nitrogen 19 mg/dL (7-20) Creatinine 0.9 mg/dL (0.6-1.0) Estimated GFR (Cockcroft-Gault) 63.2 BUN/Creatinine Ratio 21 (6-20) Glucose Level 195 mg/dL (70-99) Calcium Level 9.2 mg/dL (8.5-10.1) Total Bilirubin 0.6 mg/dL (0.2-1.0) Aspartate Amino Transf (AST/SGOT) 18 U/L (15-37) Alanine Aminotransferase (ALT/SGPT) 29 U/L (14-59) Alkaline Phosphatase 68 U/L (46-116) Total Protein 6.8 g/dL (6.4-8.2) Albumin 3.1 g/dL (3.4-5.0) Albumin/Globulin Ratio 0.8 (1.0-1.7) Test 05/10/19 11:14 05/10/19 16:20 05/10/19 20:14 05/11/19 06:10 Glucose (Fingerstick) 148 mg/dL (70-99) 131 mg/dL (70-99) 114 mg/dL (70-99) White Blood Count 5.2 x10^3/uL (4.0-11.0) Red Blood Count 4.15 x10^6/uL (3.50-5.40) Hemoglobin 11.9 g/dL (12.0-15.5) Hematocrit 35.7 % (36.0-47.0) Mean Corpuscular Volume 86 fL (79-100) Mean Corpuscular Hemoglobin 29 pg (25-35) Mean Corpuscular Hemoglobin Concent 33 g/dL (31-37) Red Cell Distribution Width 18.7 % (11.5-14.5) Platelet Count 206 x10^3/uL (140-400) Neutrophils (%) (Auto) 41 % (31-73) Lymphocytes (%) (Auto) 40 % (24-48) Monocytes (%) (Auto) 8 % (0-9) Eosinophils (%) (Auto) 10 % (0-3) Basophils (%) (Auto) 1 % (0-3) Neutrophils # (Auto) 2.1 x10^3/uL (1.8-7.7) Lymphocytes # (Auto) 2.1 x10^3/uL (1.0-4.8) Monocytes # (Auto) 0.4 x10^3/uL (0.0-1.1) Eosinophils # (Auto) 0.5 x10^3/uL (0.0-0.7) Basophils # (Auto) 0.0 x10^3/uL (0.0-0.2) Sodium Level 142 mmol/L (136-145) Potassium Level 4.1 mmol/L (3.5-5.1) Chloride Level 107 mmol/L (98-107) Carbon Dioxide Level 25 mmol/L (21-32) Anion Gap 10 (6-14) Blood Urea Nitrogen 21 mg/dL (7-20) Creatinine 0.9 mg/dL (0.6-1.0) Estimated GFR (Cockcroft-Gault) 63.2 BUN/Creatinine Ratio 23 (6-20) Glucose Level 136 mg/dL (70-99) Calcium Level 9.1 mg/dL (8.5-10.1) Total Bilirubin 0.5 mg/dL (0.2-1.0) Aspartate Amino Transf (AST/SGOT) 10 U/L (15-37) Alanine Aminotransferase (ALT/SGPT) 28 U/L (14-59) Alkaline Phosphatase 67 U/L (46-116) Total Protein 6.9 g/dL (6.4-8.2) Albumin 3.2 g/dL (3.4-5.0) Albumin/Globulin Ratio 0.9 (1.0-1.7) Test 05/11/19 07:51 05/11/19 11:55 Glucose (Fingerstick) 123 mg/dL (70-99) 126 mg/dL (70-99) Laboratory Tests Test 05/10/19 16:20 05/10/19 20:14 05/11/19 06:10 05/11/19 07:51 Glucose (Fingerstick) 131 mg/dL (70-99) 114 mg/dL (70-99) 123 mg/dL (70-99) White Blood Count 5.2 x10^3/uL (4.0-11.0) Red Blood Count 4.15 x10^6/uL (3.50-5.40) Hemoglobin 11.9 g/dL (12.0-15.5) Hematocrit 35.7 % (36.0-47.0) Mean Corpuscular Volume 86 fL (79-100) Mean Corpuscular Hemoglobin 29 pg (25-35) Mean Corpuscular Hemoglobin Concent 33 g/dL (31-37) Red Cell Distribution Width 18.7 % (11.5-14.5) Platelet Count 206 x10^3/uL (140-400) Neutrophils (%) (Auto) 41 % (31-73) Lymphocytes (%) (Auto) 40 % (24-48) Monocytes (%) (Auto) 8 % (0-9) Eosinophils (%) (Auto) 10 % (0-3) Basophils (%) (Auto) 1 % (0-3) Neutrophils # (Auto) 2.1 x10^3/uL (1.8-7.7) Lymphocytes # (Auto) 2.1 x10^3/uL (1.0-4.8) Monocytes # (Auto) 0.4 x10^3/uL (0.0-1.1) Eosinophils # (Auto) 0.5 x10^3/uL (0.0-0.7) Basophils # (Auto) 0.0 x10^3/uL (0.0-0.2) Sodium Level 142 mmol/L (136-145) Potassium Level 4.1 mmol/L (3.5-5.1) Chloride Level 107 mmol/L (98-107) Carbon Dioxide Level 25 mmol/L (21-32) Anion Gap 10 (6-14) Blood Urea Nitrogen 21 mg/dL (7-20) Creatinine 0.9 mg/dL (0.6-1.0) Estimated GFR (Cockcroft-Gault) 63.2 BUN/Creatinine Ratio 23 (6-20) Glucose Level 136 mg/dL (70-99) Calcium Level 9.1 mg/dL (8.5-10.1) Total Bilirubin 0.5 mg/dL (0.2-1.0) Aspartate Amino Transf (AST/SGOT) 10 U/L (15-37) Alanine Aminotransferase (ALT/SGPT) 28 U/L (14-59) Alkaline Phosphatase 67 U/L (46-116) Total Protein 6.9 g/dL (6.4-8.2) Albumin 3.2 g/dL (3.4-5.0) Albumin/Globulin Ratio 0.9 (1.0-1.7) Test 05/11/19 11:55 Glucose (Fingerstick) 126 mg/dL (70-99) Allergies Allergies Coded Allergies Type Severity Reaction Last Updated Verified silver Allergy Intermediate wound dressing/preparations 05/06/19 No I S O L A T I O N *CONTACT* Allergy Unknown 01/11/19 Yes No Known Medication Allergies Allergy Unknown 01/11/19 Yes Disposition/Orders: D/C to Home Patient Instructions d/c planning 34 min OMAR DUGAN MD May 11, 2019 15:38
[2019-05-11] MEDS ORDERED: VANC1.5P33 IV (15:41)
[2019-05-11] MEDS ORDERED: ERTA1VIA IJ (15:41)
--- NOTE | 2019-05-11 15:43 | SNU/HH DC ---
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 Medical Complications: DJD, Other (osteomyelitis) RN For Eval/Treatment: Yes Physical Therapy For: Evalulation/Treatment Occupational Therapy For: Evaluation/Treatment Speech Language Pathology For: Evaluation/Treatment Home Health Aide For: Self-care ASSISTANT KITCHEN MANAGER For: Community Resources Pt Meets Homebound Status: Unsteady balance w/ amb, POST DISCHARGE ORDERS: Activity Instructions for Disc: Resume previous activity, Activity as tolerated Weight Bearing Status after Di: As tolerated Bathing Instructions: Shower-keep dressing dry DIET AFTER DISCHARGE: ADA Wound/Incision Care: Change dressing CHECKS AFTER DISCHARGE: Checks after discharge: Check blood sugar, ac/hs TREATMENT/EQUIPMENT ORDERS: Adaptive Equipment Issued: Front wheeled walker, Wheelchair CERTIFICATION STATEMENT: Certification Statement: Certification Statement: Based on the above finding, I certify that this patient is confined to the home and needs intermittent long-term care, physical therapy and/or speech therapy, or continues to need occupational therapy.~ This patient is under my care, and I have initiated the establishment of the plan of care.~ This patient will be followed by myself or a community physician who will periodically review the plan of care. Home Meds Active Scripts Ertapenem Sodium (INVANZ) 1 Gm Vial, 1 GM IJ DAILY08 for infection for 14 Days, #14 EACH Prov:OMAR DUGAN MD 05/11/19 Vancomycin/0.9 % Sod Chloride (Vanco 1.5 gm/300 ml-0.9% NaCl) 1.5 Gm/300 Ml Plast..bag, 1.5 GM IV BID for infection for 14 Days, #30 EACH Prov:OMAR DUGAN MD 05/11/19 Lactobacillus Rhamnosus Gg (CULTURELLE) 1 Each Cap.sprink, 1 CAP PO BID for Diarrhea for 7 Days, #14 CAP Prov:TAYLOR COLON MD 01/07/19 Hydrocodone Bit/Acetaminophen (HYDROCODONE-APAP 5-325 ) 1 Tab Tablet, 1 TAB PO PRN Q6HRS PRN for PAIN for 6 Days, #8 TAB Prov:TAYLOR COLON MD 01/06/19 Aspirin (ASPIRIN EC) 81 Mg Tablet.dr, 81 MG PO DAILYWBKFT for antiplatelet for 30 Days, #30 TAB.SR Prov:NAOMIE DENIS MD 11/11/18 Atorvastatin Calcium (ATORVASTATIN CALCIUM) 40 Mg Tablet, 20 MG PO QHS, #30 1 Refill Prov:VAL GALEANO MD 04/07/16 Levothyroxine Sodium (LEVOTHYROXINE SODIUM) 112 Mcg Tablet, 112 MCG PO DAILY07, #30 1 Refill Prov:VAL GALEANO MD 04/07/16 Reported Medications Metformin Hcl (METFORMIN HCL) 1,000 Mg Tablet, 1000 MG PO BID for ANTI-DIABETIC, TAB 0 Refills 01/04/19 Canagliflozin (INVOKANA) 300 Mg Tablet, 300 MG PO DAILY for diabetes, TAB 01/04/19 Losartan Potassium (LOSARTAN POTASSIUM) 50 Mg Tablet, 25 MG PO DAILY for HYPERTENSION, TAB 01/04/19 OMAR DUGAN MD May 11, 2019 15:43
--- NOTE | 2019-05-11 16:00 | NUR ---
Wound Care Pt seen for wound care follow up prior to discharge home. Pt's home wound vac has not been approved yet, so R BKA wound packed with 1/4 Iodoform packing strip and covered with Iodoflex and a foam dressing, wound photographed prior to dressing it. Wound appears much improved since admission date, with tunnel having closed in significantly. Spoke with Jenifer at [facility] and informed her pt would be going home today without the vac, but most likely would be applied tomorrow in the wound clinic, if approved. [facility] would like the wound vac continued until pt follows up with them, pt also to start Hyperbarics tomorrow at wound clinic. Hospital vac taken to [facility] for cleaning.
--- NOTE | 2019-05-11 16:37 | NUR ---
SW following. Orders faxed to [facility] and [facility]. Left a voice mail to Amilcar at [facility]. Pt states she has been given teachings before and knows how to administer medication at home. [facility] will deliver medications tonight and pt will receive today's dose before she leaves [facility]. Discussed with Wound care and ID.
--- NOTE | 2019-05-11 17:42 | NUR ---
pt discharged home with home health. will be doing home infusions. has DL picc in place to upper right arm. reviewed meds and follow up with patient and spouse. both v/u. pt discharged with personal w/c via private vehicle.
== END 2019-05-11 17:44 | disposition home health service (06) | DRG 565 ==
LOC: 5 SOUTH 14:25
PROVIDERS: ADMIT Internal Medicine; ATTEND Internal Medicine
PROC: 02HV33Z Insertion of Infusion Device into Superior Vena Cava, Percutaneous Approach (ICD-10-PCS; principal; 2019-05-09)
PROC: B5181ZA Fluoroscopy of Superior Vena Cava using Low Osmolar Contrast, Guidance (ICD-10-PCS; 2019-05-09)
PROC: B548ZZA Ultrasonography of Superior Vena Cava, Guidance (ICD-10-PCS; 2019-05-09)
DX: T87.43 Infection of amputation stump, right lower extremity (principal); M86.161 Other acute osteomyelitis, right tibia and fibula; L03.90 Cellulitis, unspecified; Y83.5 Amputation of limb(s) as the cause of abnormal reaction of the patient, or of later complication, without mention of misadventure at the time of the procedure; I10 Essential (primary) hypertension; E78.5 Hyperlipidemia, unspecified; E11.51 Type 2 diabetes mellitus with diabetic peripheral angiopathy without gangrene; E11.69 Type 2 diabetes mellitus with other specified complication; E03.9 Hypothyroidism, unspecified; M19.90 Unspecified osteoarthritis, unspecified site; G89.29 Other chronic pain; F41.9 Anxiety disorder, unspecified; Y83.8 Other surgical procedures as the cause of abnormal reaction of the patient, or of later complication, without mention of misadventure at the time of the procedure; Z82.49 Family history of ischemic heart disease and other diseases of the circulatory system; Z86.14 Personal history of Methicillin resistant Staphylococcus aureus infection; Z87.891 Personal history of nicotine dependence
CPT/HCPCS: 36415; 36569; 73720; 76937; 77001; 80048; 80053; 80202; 82565; 82962; 83036; 85025; 85651; 87040; 87071; 87075; 87186; A9575; C1751; C1892; J1335; J1815; J2543; J3370; J7040; J7050; G0378; J7030

== ENCOUNTER → 2019-05-20 | Outpatient (CLI) | payer OTHER ==
[~2019-05-20] VITALS: Ht 175.3 cm; Wt 77.1 kg
[~2019-05-20] MED LIST changes: +DAPTOmycin (GENERIC) IVPB 460 MG in IV NORMAL SALINE 50ML 50 ML IV ONE; +VANC1.5P33 IV
[2019-05-20 13:03] VITALS: BP 153/66
== END | disposition home or self-care (01) ==
LOC: OPS 12:53
PROVIDERS: ATTEND Internal Medicine Infectious Disease
DX: T87.43 Infection of amputation stump, right lower extremity (principal); F41.9 Anxiety disorder, unspecified; I10 Essential (primary) hypertension; E78.5 Hyperlipidemia, unspecified; E03.9 Hypothyroidism, unspecified; G89.29 Other chronic pain; E11.69 Type 2 diabetes mellitus with other specified complication; E11.51 Type 2 diabetes mellitus with diabetic peripheral angiopathy without gangrene; E78.00 Pure hypercholesterolemia, unspecified; Z86.14 Personal history of Methicillin resistant Staphylococcus aureus infection; Z87.891 Personal history of nicotine dependence; Z79.4 Long term (current) use of insulin
CPT/HCPCS: 96365; J0878